=== PATIENT | female | born 1955 | race African-American/Black ===

== ENCOUNTER 2019-06-28 07:27 | Emergency (ER) | payer OTHER ==
--- NOTE | 2019-06-28 14:58 | ER ---
Nurse's Notes [facility] Name: Jennifer Cisneros Age: 63 yrs Sex: Female : 1955 Arrival Date: 06/28/2019 Time: 07:29 Bed External Waiting Private MD: Diagnosis: Acute upper respiratory infection, unspecified Presentation: 06/28 07:33 Presenting complaint: Patient states: "I started yesterday, I was just cold, then I aa5 started coughing and my throat started hurting". Pt reports dry cough and body aches. Transition of care: patient was not received from another setting of care. Onset of symptoms was June 27, 2019. Risk Assessment: Do you want to hurt yourself or someone else? Patient reports no desire to harm self or others. Initial Sepsis Screen: Does the patient meet any 2 criteria? No. Patient's initial sepsis screen is negative. Does the patient have a suspected source of infection? No. Patient's initial sepsis screen is negative. Care prior to arrival: None. 07:33 Acuity: RITESH 4 aa5 07:33 Method Of Arrival: Ambulatory aa5 Historical: - Allergies: 07:34 Tylenol-Codeine #3; aa5 - PMHx: 07:34 hiatal hernia; aa5 - PSHx: 07:34 Hysterectomy; Cholecystectomy; Appendectomy; aa5 - Immunization history:: Flu vaccine is not up to date. - Social history:: Smoking status: Patient/guardian denies using tobacco, Patient/guardian denies using alcohol, street drugs, The patient lives with family. - Ebola Screening: : No symptoms or risks identified at this time. - Family history:: not pertinent. Screenin:08 Abuse screen: Denies threats or abuse. Denies injuries from another. Nutritional ph screening: No deficits noted. Tuberculosis screening: No symptoms or risk factors identified. Fall Risk None identified. Assessment: 08:00 General: Appears in no apparent distress. comfortable, slender, well groomed, Behavior ph is calm, cooperative, appropriate for age, Reports chills for 12-24 hours. Pain: Complains of pain in head. Neuro: Level of Consciousness is awake, alert, obeys commands, Oriented to person, place, time, situation, Reports headache Denies weakness blurred vision dizziness. Cardiovascular: Capillary refill < 3 seconds in bilateral fingers Patient's skin is warm and dry. Respiratory: Airway is patent Respiratory effort is even, unlabored, Respiratory pattern is regular, symmetrical. GI: Abdomen is flat, non-distended, Reports nausea, Patient currently denies abdominal pain, diarrhea. EENT: Reports pain when swallowing. Derm: Skin is intact, is healthy with good turgor, Skin is pink, warm \\T\\ dry. Musculoskeletal: Circulation, motion, and sensation intact. Range of motion: intact in all extremities. 09:35 Reassessment: Pt discharged at 0932. hb Vital Signs: 07:34 BP 115 / 62; Pulse 109; Resp 18 S; Temp 98.5(O); Pulse Ox 96% on R/A; Weight 52.16 kg aa5 (R); Height 5 ft. 4 in. (162.56 cm) (R); Pain 9/10; 09:00 BP 112 / 70; Pulse 87; Resp 18; Temp 98.0; Pulse Ox 97% on R/A; ph 07:34 Body Mass Index 19.74 (52.16 kg, 162.56 cm) aa5 ED Course: 07:29 Patient arrived in ED. ag5 07:33 Triage completed. aa5 07:33 Arm band placed on. aa5 07:37 Gogo Coats MD is Attending Physician. ma2 07:38 Shivani Zeng, RN is Primary Nurse. ph 09:08 Patient has correct armband on for positive identification. Bed in low position. Call ph light in reach. Side rails up X 1. Pulse ox on. NIBP on. Door closed. Noise minimized. Warm blanket given. 09:30 No provider procedures requiring assistance completed. Patient did not have IV access ph during this emergency room visit. Administered Medications: No medications were administered Outcome: 09:19 Discharge ordered by . ma2 09:32 Discharged to home ambulatory, with family. ph 09:32 Condition: good 09:32 Discharge instructions given to patient, Instructed on discharge instructions, follow up and referral plans. medication usage, Demonstrated understanding of instructions, follow-up care, medications, Prescriptions given X 3. 11:22 Patient left the ED. Signatures: Marilee Vo RN RN [facility] Zeynep Brooke RN RN Shivani Zeng RN RN ph Afua Priest RN RN hb Gogo Coats MD MD ma2 Wong Romero ag5
--- NOTE | 2019-06-28 14:59 | EDPHYS ---
Physician Documentation [facility] Name: Jennifer Cisneros Age: 63 yrs Sex: Female : 1955 Arrival Date: 06/28/2019 Time: 07:29 Bed External Waiting [facility] MD: ED Physician Gogo Coats HPI: 06/28 09:16 This 63 yrs old Black Female presents to ER via Ambulatory with complaints of Nausea, ma2 Headache, Sore Throat. 09:16 Associated signs and symptoms: Pertinent positives: Pertinent negatives: belching, ma2 dysuria, flatulence, GI bleeding. Severity of symptoms: At their worst the symptoms were very mild in the emergency department the symptoms are unchanged. The patient has not experienced similar symptoms in the past. Historical: - Allergies: 07:34 Tylenol-Codeine #3; aa5 - PMHx: 07:34 hiatal hernia; aa5 - PSHx: 07:34 Hysterectomy; Cholecystectomy; Appendectomy; aa5 - Immunization history:: Flu vaccine is not up to date. - Social history:: Smoking status: Patient/guardian denies using tobacco, Patient/guardian denies using alcohol, street drugs, The patient lives with family. - Ebola Screening: : No symptoms or risks identified at this time. - Family history:: not pertinent. ROS: 09:16 All other systems are negative. ma2 09:20 Constitutional: Negative for fever, chills, and weight loss. ma2 Exam: 09:16 Constitutional: This is a well developed, well nourished patient who is awake, alert, ma2 and in no acute distress. Head/Face: Normocephalic, atraumatic. Eyes: Pupils equal round and reactive to light, extra-ocular motions intact. Lids and lashes normal. Conjunctiva and sclera are non-icteric and not injected. Cornea within normal limits. Periorbital areas with no swelling, redness, or edema. ENT: Nares patent. No nasal discharge, no septal abnormalities noted. Tympanic membranes are normal and external auditory canals are clear. Oropharynx with no redness, swelling, or masses, exudates, or evidence of obstruction, uvula midline. Mucous membranes moist. Neck: Trachea midline, no thyromegaly or masses palpated, and no cervical lymphadenopathy. Supple, full range of motion without nuchal rigidity, or vertebral point tenderness. No Meningismus. Chest/axilla: Normal chest wall appearance and motion. Nontender with no deformity. No lesions are appreciated. Cardiovascular: Regular rate and rhythm with a normal S1 and S2. No gallops, murmurs, or rubs. Normal PMI, no JVD. No pulse deficits. Respiratory: Lungs have equal breath sounds bilaterally, clear to auscultation and percussion. No rales, rhonchi or wheezes noted. No increased work of breathing, no retractions or nasal flaring. Abdomen/GI: Soft, non-tender, with normal bowel sounds. No distension or tympany. No guarding or rebound. No evidence of tenderness throughout. MS/ Extremity: Pulses equal, no cyanosis. Neurovascular intact. Full, normal range of motion. Neuro: Awake and alert, GCS 15, oriented to person, place, time, and situation. Cranial nerves II-XII grossly intact. Motor strength 5/5 in all extremities. Sensory grossly intact. Cerebellar exam normal. Normal gait. Vital Signs: 07:34 BP 115 / 62; Pulse 109; Resp 18 S; Temp 98.5(O); Pulse Ox 96% on R/A; Weight 52.16 kg aa5 (R); Height 5 ft. 4 in. (162.56 cm) (R); Pain 9/10; 09:00 BP 112 / 70; Pulse 87; Resp 18; Temp 98.0; Pulse Ox 97% on R/A; ph 07:34 Body Mass Index 19.74 (52.16 kg, 162.56 cm) aa5 MDM: 07:37 Patient medically screened. ma2 09:16 Differential diagnosis: URI, pharyngitis. Data reviewed: vital signs, nurses notes. ma2 Counseling: I had a detailed discussion with the patient and/or guardian regarding: the historical points, exam findings, and any diagnostic results supporting the discharge/admit diagnosis, the presence of at least one elevated blood pressure reading (>120/80) during this emergency department visit. Response to treatment: There is no appreciated change of the patient's symptoms at this time. 06/28 07:49 Order name: Flu ma2 06/28 07:49 Order name: Strep ma2 Administered Medications: No medications were administered Disposition: 06/28/19 09:19 Discharged to Home. Impression: Acute upper respiratory infection, unspecified. - Condition is Stable. - Discharge Instructions: Upper Respiratory Infection, Adult. - Prescriptions for Tramadol 50 mg Oral Tablet - take 1 tablet by ORAL route every 8 hours as needed; 12 tablet. Zithromax Z- Chidi 250 mg Oral Tablet - take 1 tablet by ORAL route as directed for 5 days Day 1 - take two (2) tablets one time. Day 2, 3, 4 , 5 take one (1) tablet once daily.; 6 tablet. Medrol (Chidi) 4 mg Oral Tablets, Dose Pack - take 1 tablet by ORAL route as directed - follow package instructions; 1 packet. - Medication Reconciliation Form, Thank You Letter, Antibiotic Education, Prescription Opioid Use form. - Follow up: Private Physician; When: Tomorrow; Reason: Continuance of care. Signatures: Dispatcher [employer] EDMarilee Poon RN RN aa5 Zeynep Brooke RN RN ss Gogo Coats MD MD ma2 Corrections: (The following items were deleted from the chart) 11:22 09:19 06/28/2019 09:19 Discharged to Home. Impression: Acute upper respiratory ss infection, unspecified. Condition is Stable. Prescriptions for Tramadol 50 mg Oral Tablet - take 1 tablet by ORAL route every 8 hours as needed; 12 tablet, Zithromax Z-Chidi 250 mg Oral Tablet - take 1 tablet by ORAL route as directed for 5 days Day 1 - take two (2) tablets one time. Day 2, 3, 4 , 5 take one (1) tablet once daily.; 6 tablet, Medrol (Chidi) 4 mg Oral Tablets, Dose Pack - take 1 tablet by ORAL route as directed - follow package instructions; 1 packet. and Forms are Medication Reconciliation Form, Thank You Letter, Antibiotic Education, Prescription Opioid Use. Follow up: Private Physician; When: Tomorrow; Reason: Continuance of care. ma2
[2019-06-28 15:43] VITALS: BP 115/62; TEMP 98.5; O2SAT 96
== END 2019-06-28 11:22 | disposition home or self-care (01) ==
LOC: ER 07:27
DX: J06.9 Acute upper respiratory infection, unspecified (principal); Z88.5 Allergy status to narcotic agent
CPT/HCPCS: 87081; 87804; 99283

== ENCOUNTER 2020-02-09 11:48 | Emergency (ER) | payer OTHER ==
[2020-02-09] MEDS ORDERED: ONDANSETRON 4 MG/2 ML VIAL ONE (12:52)
[2020-02-09] MEDS ORDERED: KETOROLAC 30 MG/ML INJ ONE (12:52)
[2020-02-09 12:57] LABS: Absolute Lymphocytes (CBC) 1.3 K/uL (0.7-4.9); Basophils % 0.3 % (0-1.3); Hematocrit 40.4 % (36.0-45.0); Lymphocytes % 16.7 % (15.3-44.8); MPV 8.4 fL (7.6-11.3); RBC Red Blood Cell Count 4.32 M/uL (3.86-4.86)
[2020-02-09 13:08] LABS: ALT/SGPT 21 U/L (12-78); AST/SGOT 14 U/L (15-37); Albumin 4.1 g/dL (3.4-5.0); Alkaline Phosphatase 82 U/L (45-117); BUN Blood Urea Nitrogen 8 mg/dL (7-18); Bicarbonate 25 mmol/L (21-32); Bilirubin Direct < 0.1 mg/dL (0-0.2); Bilirubin Total 0.4 mg/dL (0.2-1.0); Glucose Level 95 mg/dL (74-106); Lipase 106 U/L (73-393); Potassium 3.8 mmol/L (3.5-5.1); Protein, Total 7.8 g/dL (6.4-8.2); Sodium Level 142 mmol/L (136-145)
--- OUTSIDE RECORDS SUMMARY | 2020-02-09 13:34 | XMS REPORT | Continuity of Care Document ---
:1955 Author Organization [employer] Care Team Providers Name Role Phone [employer] Unavailable Un available Problems Problem Status Onset Classification Date Comments Sourc e Date Reported Family history of 02/17/2018 M H Medical malignant neoplasm 018 G roup of ovary Family history of 02/17/2018 M Medical malignant neoplasm 018 G roup of breast Encounter for 02/17/2018 [facility] dical gynecological 018 Group examination (general) (routine) without abnormal findings GERD Active [address] [id number] Active [address] Discharge 07/25/2015 Sugar Diagnosis: 016 Land Dizziness Discharge 07/25/2015 [place] Diagnosis: Nausea 016 [place] NAUESA/ Active Sugar 016 Land 789.06// GASTRIC Active Sugar EMPTYING STUDY 015 Land Bladder muscle Active Problem 11/16/2018 Data [facility] edical dysfunction - 015 migrated Group, MH overactive from [facility] (disorder) [facility] on 01/10/15. [facility] [place] OVERACTIVE BLADDER Active Condition 01/04/2015 Medical 015 Group Asthma (disorder) Active Problem 11/16/2018 Data [facility] Medical 015 migrated Group,MH from [facility] on 12/02/14. [facility] [place] Disorder of nasal Active Problem 07/25/2015 Data [facility] Sugar cavity (disorder) 015 migrated [place] from [facility] on 12/02/14. ASTHMA Active Condition 01/04/2015 Medica l 015 Group Epigastric pain Active Problem 07/25/2015 Data [place] (finding) 014 migrated Land from [facility] on 12/02/14. Loss of appetite Active Problem 07/25/2015 Data Sugar (finding) 014 migrated Land from [facility] on 12/02/14. ABDOMINAL PAIN, Active Condition 01/04/2015 Medical EPIGASTRIC 014 Group LOSS OF APPETITE Active Condition 01/04/2015 Medical 014 Group BRONCHITIS, ACUTE Active Condition 01/04/2015 [facility] Medical 014 Group Allergic rhinitis Active Problem 11/16/2018 Data [facility] Medical (disorder) 014 migrated Group, from [facility] on 12/02/14. [place] [place] Contusion of knee Active Problem 07/25/2015 Data [facility] Sugar (disorder) 014 migrated Land from [facility] on 12/02/14. CONTUSION OF KNEE Active Condition 01/04/2015 [facility] Medical 014 Group NEED PROPHYLACTIC Active Condition 01/04/2015 [facility] Medical VACCINATION&INOCULA 014 Group TION FLU EXAMINATION, Inactive Condition 01/04/2015 Med ical ROUTINE MEDICAL 014 Grou p Chronic Active Problem 11/16/2018 Data Medica l constipation 014 migrated Group,[facility] (disorder) from [facility] on 12/02/14. [place] [place] SCREENING FOR COLON Inactive Condition 01/04/2015 Medical CANCER 014 Group CONSTIPATION, Active Condition 01/04/2015 [facility] dical CHRONIC 014 Group SCREENING Inactive Condition 01/04/2015 Medica l EXAMINATION FOR 014 Grou p OTHER SPECIFIED VIRAL DISEASES Past history of Active Problem 07/25/2015 Data Sugar clinical finding 014 migrated Samy d (context-dependent from [facility] on 12/02/14. OTHER DISEASES OF Inactive Condition 01/04/2015 [facility] Medical NASAL CAVITY AND 014 [place] up SINUSES BACKACHE, Inactive Condition 01/04/2015 Medica l UNSPECIFIED 014 Group HX, PERSONAL, PAST Active Condition 01/04/2015 Medical NONCOMPLIANCE 014 Group Derangement of knee Active Problem 07/25/2015 Data [place] (disorder) 014 migrated Land from [facility] on 12/02/14. INTERNAL Active Condition 01/04/2015 Medica l DERANGEMENT, LEFT 014 Gr oup KNEE Benign essential Active Problem 11/16/2018 Data Medical hypertension 014 migrated Group,M H (disorder) from [facility] on 12/02/14. Center,[facility] [place] Tear of medial Resolved Problem 11/16/2018 Data M edical meniscus of knee 014 migrated [place]isha up, (disorder) from [facility] on 12/02/14. Center,[facility] [place] Long-term drug Active Problem 07/25/2015 Data S ugar therapy (procedure) 014 migrated Land from [facility] on 12/02/14. ESSENTIAL Active Condition 01/04/2015 Medica l HYPERTENSION, 014 Group BENIGN MEDIAL MENISCUS Active Condition 01/04/2015 Medical TEAR, LEFT 014 Group KNEE PAIN, LEFT Inactive Condition 01/04/2015 Medical 014 Group LONG-TERM (CURRENT) Active Condition 01/04/2015 Medical USE OF OTHER 014 Group MEDICATIONS UNSPECIFIED Inactive Condition 01/04/2015 Medi chele BACKACHE 014 Group HEALTH SCREENING Inactive Condition 01/04/2015 Medical 014 Group ALLERGIC RHINITIS Inactive Condition 01/04/2015 M H Medical CAUSE UNSPECIFIED 014 Gr oup Disorder of Active Problem 07/25/2015 Data S[place] r refraction AND/OR [address] accommodation from (disorder) [facility] on 12/02/14. Subjective visual Active Problem 07/25/2015 Data M H [place] disturbance 014 migrated Land (disorder) from [facility] on 12/02/14. OTHER DISORDERS OF Active Condition 01/04/2015 Medical REFRACTION AND 014 Group ACCOMMODATION VISUAL CHANGES Active Condition 01/04/2015 [facility] edical 014 Group Sinusitis Resolved Problem 07/25/2015 Data migrated from [facility] on 01/20/15. Sugar (disorder) 014 Data migrated from [facility] on 01/19/15. [place] SINUSITIS Inactive Condition 01/04/2015 Medica l 014 Group Joint pain Active Problem 07/25/2015 Data Sugar (finding) 013 migrated Land from [facility] on 12/02/14. Muscle pain Active Problem 07/25/2015 Data S[place] r (finding) 013 migrated Land from [facility] on 12/02/14. MYALGIA Active Condition 01/04/2015 Medica l 013 Group ARTHRALGIA Active Condition 01/04/2015 Medic al 013 Group Palpitations Active Problem 11/16/2018 Data Med ical (finding) 013 migrated Group, from [facility] on 12/02/14. Center,M [facility] [place] PALPITATIONS, Active Condition 01/04/2015 [facility] dical OCCASIONAL 013 Group Fibromyositis Active Problem 11/16/2018 Data [facility] dical (disorder) 013 migrated Group, from [facility] on 12/02/14. Center,M [facility] [place] FIBROMYALGIA Active Condition 01/04/2015 Med ical 013 Group HEADACHE Inactive Condition 01/04/2015 Medica l 013 Group SINUSITIS, FRONTAL Inactive Condition 01/04/2015 Medical 013 Group Menopausal syndrome Active Problem 07/25/2015 Data Sugar (disorder) 013 migrated Land from [facility] on 12/02/14. ROUTINE Inactive Condition 01/04/2015 Medica l GYNECOLOGICAL 013 Group EXAMINATION MENOPAUSAL SYNDROME Active Condition 01/04/2015 Medical 013 Group CYSTOCELE WITHOUT Inactive Condition 01/04/2015 M H Medical MENTION UTERINE 013 Grou p PROLAPSE MIDLN Hyperlipidemia Active Problem 07/24/2017 [place] [facility] Hiatal hernia Active Problem 07/24/2017 [place] [facility] Essential (primary) Active Problem 07/24/2017 [facility] hypertension Practic e Assoc IBS (irritable Active Diagnosis 01/19/2016 [place] F am bowel syndrome) Prac fran [facility]oc Leg pain Active Diagnosis 01/19/2016 [place] [facility] Preventative health Active Diagnosis 02/06/2016 [place] [facility] Anxiety disorder Active Problem 11/16/2018 Data Medical (disorder) migrated Group, from [facility] on 12/02/14. 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 [place] [place] Family history of Active Problem 11/16/2018 [facility] Medical malignant neoplasm G roup of breast (situation) Family history of Active Problem 11/16/2018 [facility] Medical malignant neoplasm G roup of ovary (situation) Gastroesophageal Active Problem 11/16/2018 Data Medical reflux disease migrated Group , (disorder) from [facility] on 01/19/15. [place] Hyperlipidemia Active Problem 11/16/2018 Data [facility] edical (disorder) migrated Group, from [facility] on 12/02/14. [facility] [place] Myopia (disorder) Active Problem 11/16/2018 [facility] Medical Group Tear film Active Problem 11/16/2018 Medica l insufficiency Group (disorder) Colonoscopy Resolved Problem 07/25/2015 Data S[place] r (procedure) migrated Land from [facility] on 01/19/15. Hypertensive Active Problem 08/08/2016 Michael as disorder, systemic edical arterial (disorder) [facility] [place] FAMILY HISTORY OF Inactive Condition 01/04/2015 [facility] Medical ARTHRITIS Group FAMILY HISTORY OF Inactive Condition 01/04/2015 [facility] Medical ASTHMA Group FAMILY HISTORY Active Condition 01/04/2015 [facility] edical BREAST CANCER Group FAMILY HISTORY OF Active Condition 01/04/2015 [facility] Medical DEPRESSION Group FAMILY HISTORY OF Active Condition 01/04/2015 [facility] Medical CVA OR STROKE Group FAMILY HISTORY OF Active Condition 01/04/2015 [facility] Medical HYPERTENSION Group FAMILY HISTORY OF Active Condition 01/04/2015 [facility] Medical THYROID DISEASE Grou p HYPERLIPIDEMIA Active Condition 01/04/2015 [facility] edical Group DEPRESSION Active Condition 01/04/2015 Medic al Group ANXIETY Active Condition 01/04/2015 Medica l Group HYPERTENSION Inactive Condition 01/04/2015 Med ical Group ABDMNAL PAIN Active [place] EPIGASTRIC Land ILLNESS, Active [facility] Medications Medication Details Route Status Patient Ordering Order Source Instructions Provider Date Estradiol 1 MG See Active Oral Tablet Instructions, 2018 Medica l # 90 tab, Group Refill(s) 1, TAKE 1 TABLET BY MOUTH EVERY DAY, [id number] Estradiol 1 MG See Inactive Oral Tablet Instructions, 2018 Medica l # 90 tab, Group Refill(s) 1, TAKE 1 TABLET BY MOUTH EVERY DAY, [id number] Estradiol 1 MG See Active Oral Tablet Instructions, 2018 Medica l # 90 tab, Group Refill(s) 1, TAKE 1 TABLET BY MOUTH EVERY DAY, [id number] Zofran 2 tablets Orally Active 4 mg Orally [place] F[place] Once a day 2018 [facility] Zithromax Z-Chidi 2 tablets on Orally Active 250 MG Orally [place] 10/05 [place] Fam the first Once a day 2017 Practice day, then 1 Assoc tablet daily for 4 days Cipro 1 tablet Orally Active 500 MG Orally [place] [facility] Twice a day 2017 [facility] Symbicort 2 puffs Inhalation Active 80-4.5 [place] [facility] MCG/ACT 2017 Practice Inhalation Assoc Twice a day influenza virus Notes: (Same Inactive [place] vaccine, as: Fluzone 2017 [facility] inactivated Quadrivalent, [place] Fluarix Quadrivalent) For 3 years of age and older (0.5 mL IM) Shake well before use tramadol 50 mg = 1 Active [place] hydrochloride 50 tab, PO, Q4H, 2017 edical MG Oral Tablet X 3 day, # [address] tab, 0 Refill(s) Ondansetron 4 MG 4 mg = 1 tab, Active [place] Disintegrating PO, BID, PRN 2017 Medi chele Tablet [Zofran] Nausea and Cente r Vomiting, Dissolve tab under tongue, X 5 day, # 10 tab, 0 Refill(s) Tylenol with 10 ml, PO, Active [place] Codeine 120 Q6H, PRN 2017 Medical mg-12 mg/5 mL Pain, X 7 Center oral liquid day, # 280 mL, 0 Refill(s) metoprolol Notes: (Same [place] extended release as: Toprol 2017 Medi chele XL) Do Not Center Crush Ondansetron 4 MG 4 mg = 1 tab, Inactive [place] Disintegrating PO, BID, PRN 2017 Medi chele Tablet [Zofran] Nausea and Cente r Vomiting, Dissolve tab under tongue, X 5 day, # 10 tab, 0 Refill(s) Tylenol with 10 ml, PO, Inactive [place] Codeine 120 Q6H, PRN 2017 Medical mg-12 mg/5 mL Pain, X 7 Center oral liquid day, # 280 mL, 0 Refill(s) tramadol 50 mg = 1 Inactive [place] hydrochloride 50 tab, PO, Q4H, 2017 M edical MG Oral Tablet X 3 day, # [address] tab, 0 Refill(s) Enoxaparin Notes: (Same [place] as: Lovenox) 2017 Medical Center Ondansetron Notes: (Same [place] Longer [place] as: Zofran) Active 2017 Medical Center MEDICATION WASTE Product Size: 4 mg Product Wasted: ___ mg Ketorolac 4 days No Longer [place] as MEDICATION Active 2017 Medical WASTE Center Product Size: 30 mg Product Wasted: ___ mg Ofirmev Notes: Infuse No Longer [place] over 15 Active 2017 Medical minutes Do Center not exceed 4gm/day of acetaminophen MEDICATION WASTE Product Size: 1000 mg Product Wasted: ___ mg Symbicort Notes: (Same No Longer [place] 160/4.5 as: Active 2017 Medical inhalation Symbicort) Center aerosol with WASTE: adapter Aerosol - Return to Pharmacy gabapentin Notes: (Same No Longer [place] as as: Active 2017 Medical Neurontin) Center Ondansetron Notes: (Same Inactive [place] as as: Zofran) 2017 Medical Center MEDICATION WASTE Product Size: 4 mg Product Wasted: ___ mg Naloxone Notes: Same Inactive [place] as Narcan 2017 Medical Center Flumazenil Notes: (Same [place] as: 2017 Medical Romazicon) Center Hydromorphone Notes: Same [place]active [place] Dilaudid 2017 Medical Center Metoprolol Notes: (Same [place]active [place] as: 2017 Medical Lopressor) Center Push over 2 minutes Tramadol Notes: Not to No Longer [place] exceed Active 2017 Medical 400mg/day. 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, Duration: 30 day, Stop date: 09/03/16 14:38:00 [employer]OVER [employer]ER [employer]PERATOR Cefazolin 2 gm, Route: Inactive [facility] IVPB, Drug 2017 Medical form: INJ, Center ONCE, Dosing Weight 57.273, kg, Start date: 08/04/16 12:21:00 [employer]OVER AND STRIPER OPERATOR, Stop date: 08/04/16 12:21:00 [employer]OVER AND STRIPER OPERATOR 72 HR 1.5 mg, 1 Inactive [facility] Scopolamine patch, Route: 2016 Medica l 0.0139 MG/HR TOP, Dosing Center Transdermal Weight Patch 57.273, kg, ONCE, Start date: 08/04/16 7:39:00 GR[employer]OVER AND STRIPER OPERATOR, Stop date: 08/04/16 7:39:00 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 STRIPER 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 ceFAZolin Notes: (Same No Longer [place] As: Ancef, Active 2017 Medical Kefzol) Center MEDICATION WASTE Product Size: 1000 mg Product Wasted: ___ mg Promethazine 25 mg = 1 Active [place] Hydrochloride 25 tab, PO, Q6H, 2016 L and MG Oral Tablet PRN Nausea, # [Phenergan] 15 tab, 0 Refill(s), Pharmacy: [facility]/pharmacy #[id number] Ketorolac 15 mg, Route: Inactive [place] IV, ONCE, 2016 Land Dosing Weight 55.591, kg, Priority: STAT, Start date: 07/22/15 14:58:00, Stop date: 07/22/15 14:58:00 Promethazine 12.5 mg, Inactive [place] Route: IM, 2016 Land ONCE, Dosing Weight 55.591, kg, Priority: STAT, Start date: 07/22/15 14:58:00, Stop date: 07/22/15 14:58:00 Sodium Chloride 500 mL, 500 Inactive [place] 0.154 MEQ/ML ml/hr, Infuse 2016 Land Injectable Over: 1 Hour, Solution Route: IV, ONCE, Priority: STAT, Dosing Weight 55.591 kg, Start date: 07/22/15 14:58:00, Duration: 1 doses or times, Stop date: 07/22/15 14:58:00 SYMBICORT 2 puffs bid Active 160-4.5 MCG/ACT 2014 Medical AERO Group METHOCARBAMOL 2 PO TID PRN Active 750 MG TABS MUSCLE SPASMS 2014 Medica l Group LEVOCETIRIZINE 1 po qhs prn No Longer DIHYDROCHLORIDE Active 2014 Medical 5 MG TABS Group ADVAIR DISKUS 1 puff twice No Longer 250-50 MCG/DOSE daily Active 2014 Medical AEPB Group DIFLUCAN 200 MG 1 po qd No Longer TABS Active 2014 Medical Group LEVAQUIN 750 MG 1 po qd No Longer TABS Active 2014 Medical Group PREDNISONE 10 MG 40 mg po No Longer TABS x4days, 30 mg Active 2014 Medical gar3buka, 20 Group mg po x4days, 10 mg [id number] then d/c PREDNISONE 10 MG 40 mg po No Longer TABS x4days, 30 mg Active 2014 Medical inn2nwjd, 20 Group mg po x4days, 10 mg [id number] then d/c ESTRADIOL 2 MG 1 tablet No Longer TABS daily Active 2014 Medical Group CEFUROXIME 1 po bid No Longer AXETIL 500 MG Active 2013 Medical TABS Group CHERATUSSIN AC 1-2 tsp q No Longer 100-10 MG/5ML 6hrs prn Active 2013 Medical SYRP cough Group PROAIR HFA 108 2 puffs q No Longer (90 BASE) 6hrs prn Active 2013 Medical MCG/ACT AERS Group CELEXA 40 MG 1 tab po qhs Active TABS 2013 Medical Group CELEXA 40 MG 1 tab po qhs Active TABS 2013 Medical Group SIMVASTATIN 40 Active MG TABS 2013 Medical Group AMITIZA 24 MCG one capsule No Longer CAPS p.o. b.i.d. Active 2013 Medical with food Group SIMVASTATIN 40 Active MG TABS 2013 Medical Group SIMVASTATIN 40 Active MG TABS 2013 Medical Group SMZ-TMP DS 1 PO BID for No Longer 800-160 MG TABS 3 days. Active 2013 Medical Group MOBIC 15 MG TABS one tablet No Longer p.o. daily Active 2013 Medical with food Group p.r.n. pain or swelling MOBIC 15 MG TABS one tablet Active p.o. daily 2013 Medical with food Group p.r.n. pain or swelling METHOCARBAMOL 2 tablets by Active 750 MG TABS mouth tid prn 2013 Medica l spasms Group METHOCARBAMOL 2 tablets by Active 750 MG TABS mouth tid prn 2013 Medica l spasms Group METHOCARBAMOL 2 tablets by No Longer 750 MG TABS mouth tid prn Active 2013 Medica l spasms Group METHOCARBAMOL 2 tablets by No Longer 750 MG TABS mouth tid prn Active 2013 Medica l spasms Group AMOXICILLIN 500 2 po bid x 10 No Longer MG CAP d with food Active 2013 Medical Group AMOXICILLIN 500 2 po bid x 10 No Longer MG CAP d with food Active 2013 Medical Group AMOXICILLIN 500 2 po bid x 10 No Longer MG CAP d with food Active 2013 Medical Group AMOXICILLIN 500 2 po bid x 10 No Longer MG CAP d with food Active 2013 Medical Group CRESTOR 5 MG 1 PO qPM No Longer TABS Active 2012 Medical Group CRESTOR 5 MG 1 PO qPM No Longer TABS Active 2012 Medical Group AMITRIPTYLINE one tab po Active 07/19/ MH HCL 100 MG TABS qhs 2012 Medical Group DEXILANT 60 MG 1 PO Daily No Longer 01/21/ MH CPDR Active 2012 Medical Group METOPROLOL one tab po Active 01/21/ MH SUCCINATE ER 25 q24h 2012 Medical MG [id number] Group NAPROXEN 500 MG take 1 tab No Longer 01/21/ MH TABS q/12h prn Active 2012 Medical RAMÍREZ/pain Group AMITRIPTYLINE one tab po Active 01/21/ MH HCL 100 MG TABS qhs 2012 Medical Group METOPROLOL one tab po Active 01/21/ MH SUCCINATE ER 25 q24h 2012 Medical MG [id number] Group NAPROXEN 500 MG take 1 tab No Longer 01/21/ MH TABS q/12h prn Active 2012 Medical RAMÍREZ/pain Group AMITRIPTYLINE one tab po Active 01/21/ MH HCL 100 MG TABS qhs 2012 Medical Group METOPROLOL one tab po Active 01/21/ MH SUCCINATE ER 25 q24h 2012 Medical MG [id number] Group NAPROXEN 500 MG take 1 tab No Longer 01/21/ MH TABS q/12h prn Active 2012 Medical RAMÍREZ/pain Group AMITRIPTYLINE 1 tab po qd No Longer 01/21/ MH HCL 50 MG TABS for 10 days Active 2012 Medic al Group AMITRIPTYLINE one tab po Active 01/21/ MH HCL 100 MG TABS qhs 2012 Medical Group NAPROXEN 500 MG take 1 tab No Longer 01/21/ MH TABS q/12h prn Active 2012 Medical RAMÍREZ/pain Group AMITRIPTYLINE 1 tab po qd No Longer 01/21/ MH HCL 50 MG TABS for 10 days Active 2012 Medic al Group NAPROXEN 500 MG take 1 tab No Longer 01/21/ MH TABS q/12h prn Active 2012 Medical RAMÍREZ/pain Group AMITRIPTYLINE 1 tab po qd No Longer 01/21/ MH HCL 50 MG TABS for 10 days Active 2012 Medic al Group METOPROLOL one tab po Active 01/21/ MH SUCCINATE ER 25 q24h 2012 Medical MG [id number] Group HYDROCODONE-ACET No Longer MH AMINOPHEN 5-500 Active 2012 Medical MG TABS Group ESTRADIOL 1 MG 1 tab PO q Active 01/04/ MH TABS day 2012 Medical Group HYDROCODONE-ACET Active 01/04/ MH AMINOPHEN 5-500 2012 Medical MG TABS Group ESTRADIOL 0.5 MG 1 TAB BY No Longer TABS MOUTH DAILY Active 2012 Medical Group ESTRADIOL 0.5 MG 1 TAB BY No Longer TABS MOUTH DAILY Active 2012 Medical Group ESTRADIOL 0.5 MG 1 TAB BY No Longer TABS MOUTH DAILY Active 2012 Medical Group Simvastatin 1 tablet in Orally Active 40 mg Orally [place] [facility] the evening Once a day [facility] Linzess 1 capsule Orally Active 145 MCG [place] [facility] Orally Once a Practice day Assoc Simvastatin 1 tablet in Orally Active 40 MG Orally [place] [facility] the evening Once a day [facility] Metoprolol 1 tablet Orally Active 25 MG Orally [place] [facility] Succinate ER Once a day [facility] Promethazine HCl 1 tablet as Orally Active 25 MG Orally [place] [facility] needed every 12 hrs [facility] Esomeprazole 1 capsule Orally Active 20 MG Orally [place] am Magnesium Once a day [facility] Estradiol 1 tablet Orally Active 1 MG Orally [place] [facility] Once a day [facility] Linzess Unknown NA Active [place] [facility] Tylenol/codeine one tablet orally Active 300-30 mg [place] [facility] #3 #30 orally every Practice 4 hours prn Assoc pain Linzess 1 capsule Orally Active 145 MCG [place] [facility] Orally Once a Practice day Assoc Allergies, Adverse Reactions, Alerts Substance Category Reaction Severity Reaction Status Date Comments S ource type Reported N.K.D.A. Adverse Info Not Adverse Active [place] F am Reaction Available Reaction 6 Prac fran Assoc No Known Assertion Drug Medication allergy Medic al Allergies Group Immunizations Immunization Date Site Status Last Updated Comments Sour ce Given influenza virus Right completed [facility] vaccine, 7 deltoid Group, inactivated [facility] diphtheria/pertu Right completed [facility] ssis, 6 Deltoid Group, acel/tetanus [facility] [place] influenza completed Medical immunization 4 Group (Flu Vax) has been administered Hx influenza Left completed [facility] Result Comment: M H Medical vaccine-unspecif 4 Deltoid fluzone [place]isha up ied<sup>2</sup> (quadrivalent) no preservative (>3 yrs.) [[id number]]. Migrated from OBS ; Data migrated from [facility] on 08/07/2015. Hx influenza Left completed GE Result Comment: Padmin[place] vaccine-unspecif 4 Deltoid fluzone Med ical ied<sup>1</sup> (quadrivalent) Center no preservative (>3 yrs.) [[id number]]. Migrated from OBS ; Data migrated from [facility] on 08/07/2015. influenza completed Medical immunization 3 Group (Flu Vax) has been administered influenza virus Left completed GE Result Comment : [facility] vaccine, 3 Deltoid fluzone (>3 Group inactivated<sup> yrs.) [[id number] ]. 1</sup> Migrated from OBS ; Data migrated from [facility] on 08/07/2015. influenza virus Left completed GE Result Comment : [place] vaccine, 3 Deltoid fluzone (>3 Medical inactivated<sup> yrs.) [[id number] ]. Center 2</sup> Migrated from OBS ; Data migrated from [facility] [place] on 08/07/2015. influenza completed Medical immunization 9 Group (Flu Vax) has been administered Results Order Name Results Value Reference Date Interpretation Comments Swapna rce Range ELECTROLYTE AGAP 8.7 10.0 - 08/05 [facility] 20.0 2017 Medical Center ELECTROLYTE eGFR 113 08/05 Result [facility] Comment: The Medical eGFR is Center calculated using the CKD-EPI formula. In most young, healthy individuals the eGFR will be >90 mL/min/1.73m2 . The eGFR declines with age. An eGFR of 60-89 may be normal in some populations, particularly the elderly, for whom the CKD-EPI formula has not been extensively validated. Use of the eGFR is not recommended in the following populations:< br/>
Sarah viduals with unstable creatinine concentration s, including patients and those with serious co-morbid conditions.<b r/>
Patie nts with extremes in muscle mass or diet.

The data above are obtained from the National Kidney Disease Education Program (NKDEP) which additionally recommends that when the eGFR is used in patients with extremes of body mass index for purposes of drug dosing, the eGFR should be multiplied by the estimated BMI. ELECTROLYTE Chloride Lvl 106 95 - 109 08/05 [place] [facility] ELECTROLYTE Potassium Lvl 3.7 3.5 - 5.1 08/05 [place] [facility] ELECTROLYTE CO2 29 24 - 32 08/05 [facility] 2016 [facility] ELECTROLYTE Calcium Lvl 8.5 8.5 - 10.5 08/05 [place] [facility] ELECTROLYTE Sodium Lvl 140 135 - 145 08/05 a [facility] ELECTROLYTE BUN 5 7 - 22 08/05 [facility] ELECTROLYTE Creatinine 0.59 0.50 - 08/05 [facility] S Lvl 1.40 [facility] ELECTROLYTE Glucose Lvl 88 70 - 99 08/05 [facility] HEMATOLOGY MCV 92.5 80.0 - 08/05 [place] 98.0 [facility] HEMATOLOGY RDW 12.9 11.5 - 08/05 [place] 14.5 [facility] HEMATOLOGY MPV 8.4 7.4 - 10.4 08/05 [facility] HEMATOLOGY Platelet 184 133 - 450 08/05 [facility] HEMATOLOGY WBC 10.5 3.7 - 10.4 08/05 2016 [facility] HEMATOLOGY Hgb 11.9 12.0 - 08/05 [place] 16.0 [facility] HEMATOLOGY Hct 35.2 36.0 - 08/05 [place] 48.0 [facility] HEMATOLOGY MCHC 33.7 32.0 - 08/05 [place] 36.0 [facility] HEMATOLOGY MCH 31.2 27.0 - 08/05 [place] 31.0 [facility] HEMATOLOGY RBC 3.81 4.20 - 08/05 [place] 5.40 [facility] HEMATOLOGY Segs 71.6 45.0 - 08/05 [place] 75.0 [facility] HEMATOLOGY Lymphocytes # 2.2 1.0 - 5.5 08/05 [facility] HEMATOLOGY Segs-Bands # 7.5 1.5 - 8.1 08/05 [facility] HEMATOLOGY Basophils 0.2 0.0 - 1.0 08/05 [facility] HEMATOLOGY Eosinophils 0.1 0.0 - 4.0 08/05 [facility] HEMATOLOGY Monocytes # 0.7 0.0 - 0.8 08/05 [facility] HEMATOLOGY Monocytes 7.1 2.0 - 12.0 08/05 [facility] HEMATOLOGY Lymphocytes 21.0 20.0 - 08/05 40.0 [facility] CHEM PANEL Creatinine 0.69 0.50 - 07/31 [facility] Lvl 1.40 [facility] CHEM PANEL eGFR 108 07/31 Result Comment: The Medical eGFR is Center calculated using the CKD-EPI formula. In most young, healthy individuals the eGFR will be >90 mL/min/1.73m2 . The eGFR declines with age. An eGFR of 60-89 may be normal in some populations, particularly the elderly, for whom the CKD-EPI formula has not been extensively validated. Use of the eGFR is not recommended in the following populations:< br/>
Sarah viduals with unstable creatinine concentration s, including patients and those with serious co-morbid conditions.<b r/>
Patie nts with extremes in muscle mass or diet.

The data above are obtained from the National Kidney Disease Education Program (NKDEP) which additionally recommends that when the eGFR is used in patients with extremes of body mass index for purposes of drug dosing, the eGFR should be multiplied by the estimated BMI. CHEM PANEL Calcium Lvl 8.8 8.5 - 10.5 07/31 [facility] CHEM PANEL CO2 30 24 - 32 07/31 [facility] CHEM PANEL Potassium Lvl 4.3 3.5 - 5.1 07/31 [place] [facility] CHEM PANEL Sodium Lvl 143 135 - 145 07/31 [facility] CHEM PANEL Chloride Lvl 106 95 - 109 07/31 [facility] CHEM PANEL AGAP 11.3 10.0 - 07/31 20. [facility] CHEM PANEL Glucose Lvl 79 70 - 99 07/31 [facility] CHEM PANEL BUN 6 7 - 22 07/31 [facility] HEMATOLOGY Angle 68.2 53.0 - 07/31 [place] 72.0 [facility] HEMATOLOGY Max Amp 65.8 50.0 - 07/31 70.0 [facility] HEMATOLOGY K-time 1.4 1.0 - 3.0 07/31 [facility] HEMATOLOGY Ly30 0.5 0.0 - 7.5 07/31 [facility]2016 [facility] HEMATOLOGY G-value 9.6 4.5 - 11.0 07/31 [facility]2016 [facility] HEMATOLOGY TEG Data See Note 07/31 [facility] (07/31/16 1:45 PM) [facility] HEMATOLOGY R-time 5.6 5.0 - 10.0 07/31 [facility]2016 [facility] HEMATOLOGY Coag Index 1.3 -3.0-3.0 - 07[place] 3[place] [facility] HEMATOLOGY TEG Interp [place]rom[place] 07/[place] [facility] are within reference ranges. These indicate adequate hemostasis . Note that TEG does not show effect of NSAIDs or P2Y12 inhibitors . CPT:43373 CARDIAC Troponin-I <0.02 0.00 - 07/22 [place] CHEM PANEL Lipase Lvl 145 73 - 393 07/22 [place] CHEM PANEL Globulin 3.7 2.0 - 4.0 07/22 [place] CHEM PANEL A/G Ratio 1.1 0.7 - 1.6 07/22 [place] CHEM PANEL AGAP 7.4 10.0 - 07/22 [place] CHEM PANEL B/C Ratio 9 6 - 25 07/22 [place] CHEM PANEL eGFR 91 07/22 [facility] Comment: The [facility] eGFR is calculated using the CKD-EPI formula. In most young, healthy individuals the eGFR will be >90 mL/min/1.73m2 . The eGFR declines with age. An eGFR of 60-89 may be normal in some populations, particularly the elderly, for whom the CKD-EPI formula has not been extensively validated. Use of the eGFR is not recommended in the following populations:< br/>
Sarah viduals with unstable creatinine concentration s, including patients and those with serious co-morbid conditions.<b r/>
Patie nts with extremes in muscle mass or diet.

The data above are obtained from the National Kidney Disease Education Program (NKDEP) which additionally recommends that when the eGFR is used in patients with extremes of body mass index for purposes of drug dosing, the eGFR should be multiplied by the estimated BMI. CHEM PANEL Alk Phos 71 39 - 136 07/22 [place] CHEM PANEL AST 20 0 - 37 07/22 [place] CHEM PANEL Bili Total 0.3 0.2 - 1.3 07/22 [place] CHEM PANEL Calcium Lvl 8.7 8.5 - 10.5 07/22 [place] CHEM PANEL CO2 31 24 - 32 07/22 [place] CHEM PANEL Albumin Lvl 3.9 3.5 - 5.0 07/22 [place] CHEM PANEL Total Protein 7.6 6.4 - 8.4 07/22 [place] CHEM PANEL ALT 28 0 - 65 07/22 [place] CHEM PANEL Chloride Lvl 102 95 - 109 07/22 [place] CHEM PANEL Potassium Lvl 3.4 3.5 - 5.1 07/22 [place] CHEM PANEL Sodium Lvl 137 135 - 145 07/22 [place] CHEM PANEL BUN 7 7 - 22 07/22 [place] CHEM PANEL Glucose Lvl 86 70 - 99 07/22 [place] CHEM PANEL Creatinine 0.80 0.50 - 07/22 [place] L[place] 1.40 [place] HEMATOLOGY Platelet 269 133 - 450 07/22 [place] HEMATOLOGY MCHC 33.2 32.0 - 07/22 [place] 36[place]0 /2015 [place] HEMATOLOGY RDW 12.9 11.5 - 07/22 [place] 14[place] HEMATOLOGY WBC 9.2 3.7 - 10.4 07/22 [place] HEMATOLOGY Hct 43.5 36.0 - 07/22 [place] 48[place]0 /2016 [place] HEMATOLOGY RBC 4.59 4.20 - 07/22 [place] 5.40 /2015 [place] HEMATOLOGY Hgb 14.4 12.0 - 07/22 [place] 16[place] HEMATOLOGY MPV 7.8 7.4 - 10.4 07/22 [place] HEMATOLOGY MCV 94.7 80.0 - 07/22 [place] 98[place]0 /2015 [place] HEMATOLOGY MCH 31.5 27.0 - 07/22 [place] 31.0 /2016 [place] HEMATOLOGY Segs-Bands # 6.4 1.5 - 8.1 07/22 [place] HEMATOLOGY Monocytes # 0.5 0.0 - 0.8 07/22 [place] HEMATOLOGY Lymphocytes # 2.3 1.0 - 5.5 07/22 [place] /2015 [place] HEMATOLOGY Monocytes 5.8 2.0 - 12.0 07/22 [place] HEMATOLOGY Eosinophils 0.1 0.0 - 4.0 07/22 [place] HEMATOLOGY Basophils 0.2 0.0 - 1.0 07/22 [place] HEMATOLOGY Eosinophils # 0.0 0.0 - 0.5 07/22 [place] HEMATOLOGY Basophils # 0.0 0.0 - 0.2 07/22 [place] HEMATOLOGY Lymphocytes 24.6 20.0 - 07/22 [place] 40[place] HEMATOLOGY Segs 69.3 45.0 - 07/22 [place] 75[place]0 [place] URINE AND UA WBC None Seen None Seen 07/22 [place] [facility] (07/22/15 3:29 PM) /2015 [place] URINE AND UA Sq Epi Few /LPF Few /LPF 07/22 [place] /2015 [place] URINE AND UA Bacteria Occasional None Seen 07/22 [place] [facility] /HPF /HPF /2015 [place] URINE AND UA RBC None Seen 0 - 2 07/22 [place] (07/22/15 3:29 PM) /2015 [place] URINE AND UA Mucus None Seen None Seen 07/22 [place] [facility] (07/22/15 3:29 PM) /2015 [place] URINE AND UA Leuk Est Negative Negative 07/22 [place] [facility] (07/22/15 3:29 PM) /2015 [place] URINE AND UA Blood Moderate Negative 07/22 [place] *ABN* /2015 [place] (07/22/15 3:29 PM) URINE AND UA Bili Negative Negative 07/22 [place] *NA* /2015 [place] (07/22/15 3:29 PM) URINE AND UA Nitrite Negative Negative 07/22 [place] [facility] (07/22/15 3:29 PM) /2015 [place] URINE AND UA 0.2 0.1 - 1.0 07/22 [place] Urobilinogen /2015 [place] URINE AND UA Ketones 15 mg/dL Negative 07/22 [place] mg/dL /2015 [place] URINE AND UA Glucose Negative Negative 07/22 [place] [facility] (07/22/15 3:29 PM) /2015 [place] URINE AND UA Spec Grav 1.015 <=1.030 07/22 [place] /2015 [place] URINE AND UA Protein Negative Negative 07/22 [place] [facility] (07/22/15 3:29 PM) /2015 [place] URINE AND UA pH 5.5 5.0 - 8.0 07/22 [place] /2015 [place] URINE AND UA Turbidity Clear Clear 07/22 [place] [facility] (07/22/15 3:29 PM) /2015 [place] URINE AND UA Color Yellow Yellow 07/22 [place] *NA* /2015 [place] (07/22/15 3:29 PM) Chemistry SODIUM 140 136 - 142 01/04 [facility] Chemistry POTASSIUM 4.8 3.3 - 5.0 01/04 [facility] Chemistry ALBUMIN 4.1 3.5 - 5.0 01/04 [facility] Chemistry CALCIUM 8.9 8.8 - 10.0 01/04 [facility] Chemistry CREATININE 0.77 0.46 - 07 1. [facility] Chemistry BUN 10 8 - 20 01/04 [facility] Chemistry ALK PHOS 60 26 - 102 01/04 [facility] Chemistry SGOT (AST) 19 10 - 42 01/04 [facility] Chemistry SGPT (ALT) 14 11 - 43 01/04 [facility] Chemistry CHOLESTEROL 234 120 - 200 01/04 [facility] HDL 60 31 - 79 01/04 [facility] Chemistry LDL 151 0 - 130 07 /2014 [facility] Chemistry TSH 1.27 0.34 - 07 5.60 [facility] Hematology HGB 13.1 12.0 - 07 15.0 [facility] Hematology HCT 39.9 35.0 - 01/04 43.8 /2014 [facility] Chemistry CREATININE 0.96 0.46 - 05 1. [facility] Chemistry CREATININE 0.96 0.46 - 05 1. [facility] Chemistry SODIUM 133 136 - 142 05/15 [facility] Chemistry POTASSIUM 3.8 3.3 - 5.0 05/15 [facility] Chemistry SODIUM 133 136 - 142 05/15 [facility] Chemistry POTASSIUM 3.8 3.3 - 5.0 05/15 [facility] Chemistry BUN 7 8 - 20 05/15 [facility] Chemistry CREATININE 0.82 0.46 - 05/15 1. [facility] Chemistry CALCIUM 8.8 8.8 - 10.0 05/15 [facility] Chemistry CHOLESTEROL 203 120 - 200 05/15 [facility] Chemistry HDL 44 31 - 79 05/15 [facility] Chemistry LDL 133 0 - 130 05/15 [facility] Chemistry ALBUMIN 4.1 3.5 - 5.0 05/15 [facility] Chemistry ALK PHOS 74 26 - 102 05/15 [facility] Chemistry SGOT (AST) 20 - 05/15 [facility] Chemistry SGPT (ALT) 19 - 05/15 [facility] Chemistry CPK 79 41 - 145 05/15 [facility] Chemistry TSH 1.47 0.34 - 05/15 5. [facility] Chemistry SODIUM 138 136 - 142 05/15 [facility] Chemistry POTASSIUM 3.8 3.3 - 5.0 05/15 [facility] Chemistry BUN 7 8 - 20 05/15 [facility] Chemistry CREATININE 0.82 0.46 - 05/15 1. [facility] Chemistry CALCIUM 8.8 8.8 - 10.0 05/15 [facility] Chemistry CHOLESTEROL 203 120 - 200 05/15 [facility] Chemistry HDL 44 31 - 79 05/15 [facility] Chemistry LDL 133 0 - 130 05/15 [facility] Chemistry ALBUMIN 4.1 3.5 - 5.0 05/15 [facility] Chemistry ALK PHOS 74 26 - 102 05/15 [facility] Chemistry SGOT (AST) 20 10 - 42 05/15 [facility] Chemistry SGPT (ALT) 19 - 05/15 [facility] Chemistry CPK 79 41 - 145 05/15 [facility] Chemistry TSH 1.47 0.34 - 05/15 5. [facility] Hematology HGB 13.8 12.0 - 05/15 15. [facility] Hematology HCT 41.1 35.0 - 05/15 43.8 /2014 [facility] Hematology HGB 13.8 12.0 - 11 15.0 /2014 [facility] Hematology HCT 41.1 35.0 - 11/10 43.8 /2014 [facility] Society Editor PAP SMEAR normal 04/25 [facility] Society Editor PAP SMEAR normal 04/25 [facility] Society Editor PAP SMEAR normal 04/25 [facility] Society Editor PAP SMEAR normal 04/25 [facility] Pathology Reports No Data Provided for This Section Diagnostic Reports Report Value Date Source Breast Mammo Scrn PRITESH 10/15/2017 [facility] incl CAD MA BILATERAL DIGITAL SCREENING MAMMOGRAM WITH CAD: 10/15/2017 CLINICAL: Screening/Screening. Current study was evaluated with a Inner Tube Cutter d Detection (CAD) system. COMPARISON:Comparison is mad e to exams dated: 10/07/2016 mammogram, 08/02/2015 mammogram, 04/25/2014 mammogram, and 01/04/2013 mammogram - [facility]. TECHNIQUE: Mammographic view s were obtained using digital acquisition. Current study was also evaluated with a Computer Aided Detection (CAD) system. FINDINGS: The tissue of both breasts is almost entirely fa t. There are benign calcifications in both breasts. No significant masses, calci fications, or other findings are seen in either breast. There has been no significant interval change. IMPRESSION: BENIGN RECOMMENDATION:There is no m ammographic evidence of malignancy. A 1 year screening mammogram is recommended.(10/16/2018) This exam was interpreted at [id number] for [facility]. Juliana van/penanthony:10/15/2017 13:33:05 Company Accountant(s): Lesly Meadows, [facility] letter sent: BI-RADS 1/2 Mammogram BI-RADS: 2 Benign Pelvis Transvaginal US EXAM: US PELVIS TRANSVAGINAL 10/24/2016 [facility] DATE: 10/24/2016 9:11 AM CDT INDICATION: PELVIC PAIN ADDITIONAL INFORMATION: Status post hysterectomy . COMPARISON: None. TECHNIQUE: Multiplanar kohler scale and color Doppler ultrasound of the pelvis were obtained by transvaginal examination postvoid. FINDINGS: Uterus: Surgically absent. Right ovary: Size: 1.9 x 1.5 x 1.3 cm Cysts: None. Masses: None. Left ovary: Size: 1.7 x 1.6 x 1.3 cm Cysts: None. Masses: None. Adnexa: Normal. Free fluid: None. Other findings: None. IMPRESSION: Unremarkable pelvic ultrasound status post hyste rectomy . SL: [id number] Breast Mammo Scrn PRITESH - BREAST MAMMO SCRN PRITESH INCL CAD MA 2016 [facility] incl CAD MA BILATERAL DIGITAL SCREENING MAMMOGRAM WITH CAD: 10/07/2016 CLINICAL: Screening. Current study was evaluated with a Inner Tube Cutter d Detection (CAD) system. Comparison is made to exams dated: 04/25/2014 mammogram and 08/02/2015 mammogram - [facility]. There are scattered fibroglandular densities in both breasts. No significant masses, calci fications, or other findings are seen in either breast. There has been no significant interval change. IMPRESSION: BENIGN There is no mammographic kash[place] dence of malignancy. A 1 year screening mammogram is recommended. Tristen mak/penrad:10/08/2016 15:29:57 Company Accountant: Dedra Farah, [facility] This exam was dictated and i nterpreted by [id number] for [facility]. letter sent: Normal exam Mammogram BI-RADS: 2 Benign Digital Mammo Screening - DIGITAL MAMMO SCREENING PRITESH MA 016 [facility] Pritesh MA BILATERAL DIGITAL SCREENING MAMMOGRAM WITH CAD: 08/02/2015 CLINICAL: Screening. Current study was evaluated with a Inner Tube Cutter d Detection (CAD) system. Comparison is made to exams dated: 04/25/2014 mammogram and 01/04/2013 mammogram - [facility]. The tissue of both breasts is almost entirely fa t. No significant masses, calci fications, or other findings are seen in either breast. There has been no significant interval change. IMPRESSION: NEGATIVE There is no mammographic kashmir dence of malignancy. A 1 year screening mammogram is recommended. Negrito olmsteadv/penrad:08/02/2015 14:48:18 Company Accountant: Aletha Meadows [facility] This exam was dictated and i nterpreted by [id number] for [facility]. letter sent: Normal exam Mammogram BI-RADS: 1 Negative Stomach emptying NM RADIONUCLIDE GASTRIC EMPTYING STUDY, 015 02/05/2015 [place] HISTORY: Abdominal pain. TECHNIQUE: Radionuclide gas tric emptying study was performed after the patient ingested oatmeal containing 1 mCi of technetium labeled sulfur colloid. FINDINGS: 50% of gastric radioactivity exits the stomach by 30 minutes indicating normal radionuclide gastric emptying. CONCLUSION: Normal radionuclide gastric emptying study. Consultation Notes No Data Provided for This Section Discharge Summaries No Data Provided for This Section History and Physicals No Data Provided for This Section Vital Signs Vital Sign Value Date Comments Source Weight 60.682 10/12/2017 [facility] BMI Calculated 22.96 10/12/2017 [facility] Systolic (mm Hg) 134 10/12/2017 [facility] Diastolic (mm Hg) 76 10/12/2017 [facility] Heart Rate 76 10/12/2017 [facility] Height 162.56 cm 10/12/2017 [facility] Grou p Systolic (mm Hg) 119 08/05/2016 [facility] Center Diastolic (mm Hg) 65 08/05/2016 [facility] Heart Rate 61 08/05/2016 [facility] Respitory Rate 18 08/05/2016 [facility] Temperature Oral (F) 97.9 F 08/05/2016 [facility] Systolic (mm Hg) 125 08/05/2016 [facility] dical Center Diastolic (mm Hg) 63 08/05/2016 [facility] Respitory Rate 19 08/05/2016 [facility] Temperature Oral (F) 98.7 F 08/05/2016 [facility] Heart Rate 60 08/05/2016 [facility] Systolic (mm Hg) 119 08/05/2016 [facility] dical Center Diastolic (mm Hg) 67 08/05/2016 [facility] Respitory Rate 18 08/05/2016 [facility] Temperature Oral (F) 97.6 F 08/05/2016 [facility] Heart Rate 87 08/05/2016 [facility] BMI Calculated 21.67 2016 [facility] Height 162.56 cm 2016 [facility] Weight 57.273 2016 [facility] Weight 120 02/04/2016 [facility] Height 64 02/04/2016 [facility] Heart Rate 76 02/04/2016 [facility] Diastolic (mm Hg) 78 02[facility]04/2016 [facility] Systolic (mm Hg) 100 02/04/2016 [facility] Weight 123 01/17/2016 [facility] Height 64 01/17/2016 [facility] Heart Rate 72 01/17/2016 [facility] Diastolic (mm Hg) 80 01/17/2016 [facility] Systolic (mm Hg) 110 01/17/2016 [facility] Heart Rate 67 07/22/2015 [place] Temperature Oral (F) 97.9 F 07/22/2015 [place] Respitory Rate 18 07/22/2015 [place] Systolic (mm Hg) 130 07/22/2015 [place] Diastolic (mm Hg) 59 07/22/2015 [place] Weight 55.591 07/22/2015 [place] Temperature Oral (F) 98.2 F 07/22/2015 [place] Heart Rate 61 07/22/2015 [place] Respitory Rate 18 07/22/2015 [place] Systolic (mm Hg) 135 07/22/2015 [facility] [place] Diastolic (mm Hg) 77 07/22/2015 [place] Weight 125 01/04/2015 [facility] Temperature Oral (F) 97.9 F 01/04/2015 [facility] Systolic (mm Hg) 105 01/04/2015 [facility] Diastolic (mm Hg) 67 01/04/2015 [facility] Heart Rate 51 01/04/2015 [facility] Respitory Rate 10 01/04/2015 [facility] Temperature Oral (F) 98.7 F 11/23/2014 [facility] Systolic (mm Hg) 110 11/23/2014 [facility] Diastolic (mm Hg) 62 11/23/2014 [facility] Heart Rate 53 11/23/2014 [facility] Respitory Rate 10 11/23/2014 [facility] Weight 127 10/27/2014 [facility] Systolic (mm Hg) 108 10/27/2014 [facility] Diastolic (mm Hg) 70 10/27/2014 [facility] Heart Rate 52 10/27/2014 [facility] Weight 148 07/31/2014 [facility] Temperature Oral (F) 98.1 F 07/31/2014 [facility] Heart Rate 80 07/31/2014 [facility] Systolic (mm Hg) 116 07/31/2014 [facility] Diastolic (mm Hg) 70 07/31/2014 [facility] Weight 148 07/12/2014 [facility] Heart Rate 80 07/12/2014 [facility] Systolic (mm Hg) 110 07/12/2014 [facility] Diastolic (mm Hg) 68 07/12/2014 [facility] Weight 153 06/21/2014 [facility] Temperature Oral (F) 98.3 F 06/21/2014 [facility] Heart Rate 80 06/21/2014 [facility] Weight 161 06/13/2014 [facility] Systolic (mm Hg) 114 06/13/2014 [facility] Diastolic (mm Hg) 77 06/13/2014 [facility] Temperature Oral (F) 98.2 F 06/13/2014 [facility] Heart Rate 77 06/13/2014 [facility] Respitory Rate 18 06/13/2014 [facility] Weight 159.8 05/25/2014 [facility] Temperature Oral (F) 98.2 F 05/25/2014 [facility] Heart Rate 80 05/25/2014 [facility] Systolic (mm Hg) 114 05/25/2014 [facility] Diastolic (mm Hg) 76 05/25/2014 [facility] Weight 164.01 05/19/2014 [facility] Temperature Oral (F) 98.9 F 05/19/2014 [facility] Heart Rate 103 05/19/2014 [facility] Systolic (mm Hg) 116 05/19/2014 [facility] Diastolic (mm Hg) 77 05/19/2014 [facility] Systolic (mm Hg) 114 04/25/2014 [facility] Diastolic (mm Hg) 76 04/25/2014 [facility] Heart Rate 87 04/25/2014 [facility] Weight 164 02/24/2014 [facility] Temperature Oral (F) 99.2 F 02/24/2014 [facility] Heart Rate 64 02/24/2014 [facility] Systolic (mm Hg) 114 02/24/2014 [facility] Diastolic (mm Hg) 78 02/24/2014 [facility] Weight 159 12/09/2013 [facility] Weight 159 11/24/2013 [facility] Temperature Oral (F) 97.4 F 11/24/2013 [facility] Heart Rate 74 11/24/2013 [facility] Systolic (mm Hg) 120 11/24/2013 [facility] Diastolic (mm Hg) 73 11/24/2013 [facility] Respitory Rate 16 11/24/2013 [facility] Weight 161 07/18/2013 [facility] Respitory Rate 18 07/18/2013 [facility] Temperature Oral (F) 98.8 F 07/18/2013 [facility] Heart Rate 88 07/18/2013 [facility] Systolic (mm Hg) 120 07/18/2013 [facility] Diastolic (mm Hg) 70 07/18/2013 [facility] Weight 157.2 05/30/2013 [facility] Respitory Rate 16 05/30/2013 [facility] Temperature Oral (F) 98.1 F 05/30/2013 [facility] Systolic (mm Hg) 124 05/30/2013 [facility] Diastolic (mm Hg) 72 05/30/2013 [facility] Heart Rate 84 05/30/2013 [facility] Weight 155 05/06/2013 [facility] Temperature Oral (F) 98.0 F 05/06/2013 [facility] Heart Rate 84 05/06/2013 [facility] Systolic (mm Hg) 110 05/06/2013 [facility] Diastolic (mm Hg) 80 05/06/2013 [facility] Weight 160 01/21/2013 [facility] Temperature Oral (F) 98.1 F 01/21/2013 [facility] Heart Rate 91 01/21/2013 [facility] Systolic (mm Hg) 110 01/21/2013 [facility] Diastolic (mm Hg) 70 01/21/2013 [facility] Weight 158 01/04/2013 [facility] Height 65 01/04/2013 [facility] Respitory Rate 19 01/04/2013 [facility] Heart Rate 68 01/04/2013 [facility] Systolic (mm Hg) 122 01/04/2013 [facility] Diastolic (mm Hg) 80 01/04/2013 [facility] Encounters Location Location Encounter Encounter Reason Attending ADM DC Stat us Source Details Type Number For Provider Date Date Visit [facility] [id number] Daina 12/09 12/09 [place] Medical Visit [id number] Krista /2013 Padmini Wilson MD Group Orthopedics [facility] [id number] Huat Maulik, 02/24 02/24 [place] Medical Visit [id number] MD /2013 [facility] [place] [facility] Office [id number] Huat Maulik, 04/25 04/25 [place] [id number] [facility] [place] [facility] OB-Manual Winder [facility] Lab Report [id number] Huat Maulik, 04/25 04/25 [place] [id number] [place] [facility] Lab Report [id number] Huat Maulik, 05/15 05/15 [place] [id number] [place] [facility] [place] [facility] Lab Report [id number] Huat Maulik, 05/19 05/19 [place] [id number] [place] [facility] [place] [facility] Gastroenter ology [facility] Office [id number] Huat Maulik, 05/19 05/19 [place] Medical [place] [id number] MD [facility] [place] [facility] Gastro[facility] [id number] Huat Maulik, 05/25 05/25 [place] [id number] MD [facility] [place] [facility] [id number] Huat Maulik, 06/13 06/13 [place] [id number] [facility] [place] [facility] [id number] Huat Maulik, 06/21 06/21 [place] Medical [place] [id number] /2013 [facility] [place] [facility] [id number] Nadim 07/12 07/12 [place] Medical Visit [id number] [place] Ev /[facility] [facility] [id number] Huat Maulik, 07/31 07/31 [place] Medical Visit [id number] Medic sandra [facility] Family Practice [facility] [id number] Huat Maulik, 10/27 10/27 [place] Medical Visit [id number] [facility] OB-Manual [facility] Lab Report [id number] Glenda 11/09 11/09 [place] [id number] MD Mary /2014 Med [facility] Pulminology [facility] Lab Report [id number] Glenda 11/23 11/23 [place] [address] MD Mary /2014 Med [facility] Lab Report [id number] Sharrone 01/04 01/04 [place] [address] BRADY Cross /2014 Ga dical [facility] Outpatient [id number] Naren Carreno 02/05 02/06 [facility] [place] Outpatient [id number] GLENDA 04/03 [facility] Out[facility] [id number] SHARRONE 05/07 Active [facility] 2 [facility] Outpatient [id number] SHARRONE 07/10 Active [facility] [id number] Eric 07/22 07/22 Sugar [facility] 4 [facility] [place] [facility] Outpatient [id number] JUSTIN 07/25 [facility] 5 Tony Outpatient [id number] SHARRONE 08/02 Active [facility] 7 JAGRUTI [facility] Outpatient [id number] DAINA-GEORGES 08/02 Acti ve [facility] 4 KRISTA /2016 Steph nn Outpatient [id number] MAMMO VISIT 08/02 Act fish [facility] Outpatient [id number] ANDREA 08/16 Active [facility] 8 Tony Outpatient [id number] JUSTIN 08/31 Active [facility] 9 [place] /2016 Tony Outpatient [id number] ANDREA 09/12 Active [facility] 1 [facility] Outpatient [id number] ELVIA 09/12 Activ e [facility] 2 CHARLES [facility] Outpatient [id number] JUSTIN 09/20 Active [facility] 0 [place] /2016 Tony Outpatient [id number] JUSTIN 10/02 Active [facility] 3 [place] /2016 Tony Outpatient [id number] ANDREA 12/17 Active [facility] 4 MUCH [facility] Outpatient [id number] SHARRONE 12/20 Active [facility] 5 JAGRUTI [facility] Outpatient [id number] SHARRONE 01/10 Active [facility] 6 JAGRUTI [place] hernia [id number] 01/16 01/16 [place] Fa m Family [id number] /2015 Pract ice Practice [id number] Ass oc Associates eb3 [place] hernia [id number] 01/16 01/16 [place] Fa [place] Family [id number] /2015 Pract ice Practice [id number] [facility] 16f [place] hernia [id number] 01/16 01/16 [place] Fa [place] [id number] /2015 Pract ice Practice [id number] [facility] 629 [place] hernia [id number] 01/16 01/16 [place] Fa [place] Family [id number] /2015 Pract ice Practice [id number] [facility] b1d [place] hernia [id number] 01/16 01/16 [place] Fa [place] Family [id number] /2015 Pract ice Practice [id number] [facility] be4 [place] Needs [id number] 01/17 01/17 [place] Fa [place] Family referral [id number] /2015 Pra ctice Practice [id number] [facility] 3a1 [place] Needs [id number] 01/17 01/17 [place] Fa [place] Family referral [id number] /2015 Pra ctice Practice [id number] [facility] 536 [place] Needs [id number] 01/17 01/17 [place] Fa [place] Family referral [id number] /2015 Pra ctice Practice [id number] [facility] 778 [place] Needs [id number] 01/17 01/17 [place] Fa m Family referral [id number] /2015 Pra ctice Practice [id number] [facility] 0b3 [place] annual/2w [id number] 02/03 02/03 [place] Fam Family [id number] /2015 Pract ice Practice [id number] [facility] 9d0 [place] annual/2w [id number] 02/03 02/03 [place] Fam Family [id number] /2015 Pract ice Practice [id number] [facility] oc Associates 54b [place] annual/2w [id number] 02/03 02/03 [place] Fam Family [id number] /2015 Pract ice Practice [id number] Ass oc Associates 5a8 [facility] Bedded [id number] Adam Conway 04/14 04/14 [facility] Outpatient 6 [facility] Outpatient [id number] DAINA-GEORGES 05/20 Acti ve [facility] 7 KRISTA Steph [facility] Clinical [id number] 07/31 07/31 [place] Fam Family Advice [id number] /2016 Pract ice Practice During [id number] Ass oc Associates Business 1be Hours [place] Clinical [id number] 07/31 07/31 [place] Fam Family Advice [id number] /2016 Pract ice Practice During [id number] Ass oc Associates Business bc1 Hours [facility] Bedded [id number] Rodolfo Maynard 08/05 08/05 [facility] Outpatient [facility] Outpatient [id number] ELVIA 09/01 Activ e [facility] 0 CHARLES /2017 [facility] Refill [id number] 09/08 09/08 [place] Fa m Family [id number] Pract ice Practice [id number] Ass oc Associates 64c Outpatient [id number] MAMMO VISIT 10/07 Act fish [facility] Tony Outpatient [id number] DAINA-GEORGES 10/07 Acti ve [facility] 8 KRISTA /2017 Steph nn Outpatient [id number] ELVIA 10/[address] [facility] 1 [facility] Outpatient [id number] SONO VISIT 10/[address] [facility] Tony Outpatient [id number] DAINA-GEORGES 10/[address] [facility] 2 Steph nn Outpatient [id number] DAINA-GEORGES 10/[address] 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 Outpatient [id number] MAMMO VISIT 10/[address] [facility] [address] [facility] Ambulatory [id number] NURSE VISIT 10/15 10/15 Radiology Pre-Reg Medica l [facility] Family Outpatient [id number] NURSE VISIT 10/15 10/16 Medicine Medical [place] [facility] SUCTION OPERATOR Phone [id number] 04/26 04/28 [facility] SUCTION OPERATOR Phone [phone] 04/28 04/30 [facility] Procedures Procedure Code Date Perfomer Comments Source Hernia repair [id number] 2016 Medical Group vaginal Pap smear [id number] 04/25/2014 normal Medi chele results Group Anterior and [id number] 03/17/2013 Medical posterior Group, colporrhaphy [facility], [place] Cystoscopy [id number] 03/17/2013 Medical Group,[facility] [place] mammogram [id number] 01/04/2013 [facility] colonoscopy [id number] 10/24/2009 [facility] Cholecystectomy [id number] Medica l Group,[facility] [place] Excision of bunion [id number] Med ical Group,[facility], [place] Hysterectomy [id number] [facility], [place] Assessment and Plan No Data Provided for This Section Plan of Care No Data Provided for This Section Social History Social History Date Source Social History ElementQualifiersDate Reported 09/05/2016 [facility] Recreational drugs: . Do you use recreational drugs? NO September 05, 2016 Tobacco Use: . Are you a: nonsmoker September 05, 2016 Caffeine: . 1 CUP COFFEE/ DAY September 05, 2016 Do you drink? . SOCIALLY September 05, 2016 Social History TypeResponse 08/02/2015 Medical [facility]on Sexual Sexually active: Yes. Self Breast Exam No. Alcohol Never Smoking Status Never smoker; Type: Cigars; Exposure to Tobacco Smoke None; Cigarette Smoking Last 365 Days No; Reg Smoking Cessation Counseling No entered on: 10/12/17 Social History TypeResponse 08/02/2015 [facility] Sexual Sexually active: Yes. Self Breast Exam No. 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 Smoking Status Never smoker; Exposure to Tobacco Smoke None; Cigarette Smoking Last 365 Days No; Reg Smoking Cessation Counseling No Family History Value Date Source QualifierDescriptionCommentDate Reported 02/06/2016 [place] [facility] Maternal Grandmother Comment not available Feb 04, 2016 Paternal Grandmother Comment not available Feb 04, 2016 Siblings Comment not available Feb 04, 2016 Maternal Grandfather Comment not available Feb 04, 2016 Children Comment not available Feb 04, 2016 Father Comment not available Feb 04, 2016 Paternal Grandfather Comment not available Feb 04, 2016 Mother Comment not available Feb 04, 2016 Other: Comment not available Feb 04, 2016 QualifierDescriptionCommentDate Reported 02/01/2016 [place] [facility] Maternal Grandmother Comment not available Feb 04, 2016 Paternal Grandmother Comment not available Feb 04, 2016 Siblings Comment not available Feb 04, 2016 Maternal Grandfather Comment not available Feb 04, 2016 Children Comment not available Feb 04, 2016 Father Comment not available Feb 04, 2016 Paternal Grandfather Comment not available Feb 04, 2016 Mother Comment not available Feb 04, 2016 Other: Comment not available Feb 04, 2016 Advance Directives No Data Provided for This Section Functional Status No Data Provided for This Section
--- NOTE | 2020-02-09 14:02 | RAD REPORT ---
EXAM DESCRIPTION: CT - Stone Protocol - 02/09/2020 1:50 pm CLINICAL HISTORY: Flank pain. Right flank pain COMPARISON: CT ABD PELVIS W CONTRAST dated 06/14/2014 TECHNIQUE: Axial images were obtained without oral or IV contrast. Lack of contrast limits solid org an and vascular assessment. The jbikr-vy-kikq spans the entirety of the system partially obscuring uppermost abdomen and lung bases. Coronal reformatted images were obtained and reviewed. All CT scans are performed using dose optimization technique as appropriate and may include automated exposure control or mA/KV adjustment according to patient size. FINDINGS: The lower lung reinoso are clear. Cholecystectomy clips. Imaged portions of the liver and spleen show no suspicious findings on non-contrast imaging. The panc reas and adrenal glands are normal. No pathologic lymphadenopathy in the abdomen or pelvis. No urinary tract stones or obstructive uropathy. No bowel obstruction, free air, free fluid or abscess. Sigmoid diverticulosis without diverticulitis. The appendix is not identified as a discrete structure, however, no secondary findings of appendicit is are identified. Moderate stool throughout the colon. Moderate lumbosacral degenerative changes. IMPRESSION: No urinary tract stones or obstructive uropathy.
--- NOTE | 2020-02-09 15:01 | ER ---
Nurse's Notes [facility] Name: Jennifer Cisneros Age: 64 yrs Sex: Female : 1955 Arrival Date: 02/09/2020 Time: 11:51 Bed 15 Private MD: Diagnosis: Right flank pain;Hematuria Presentation: 02/08 12:07 Coronavirus screen: Client denies travel out of the [place] in the last 14 days. At this ll1 time, the client does not indicate any symptoms associated with coronavirus-19. Ebola Screen: Patient denies travel to an Ebola-affected area in the 21 days before illness onset. Initial Sepsis Screen: Does the patient meet any 2 criteria? No. Patient's initial sepsis screen is negative. Risk Assessment: Do you want to hurt yourself or someone else? Patient reports no desire to harm self or others. Onset of symptoms was February 08, 2020. 12:07 Method Of Arrival: Ambulatory ll1 12:07 Acuity: RITESH 3 ll1 12:09 Chief complaint: Patient states: Right flank pain since last night. + nausea. No fever ll1 or dysuria. Historical: - Allergies: 12:08 Tylenol-Codeine #3; ll1 - PMHx: 12:08 hiatal hernia; ll1 - PSHx: 12:08 Hysterectomy; Cholecystectomy; Appendectomy; ll1 - Immunization history:: Flu vaccine status is unknown. - Social history:: Smoking status: Patient denies any tobacco usage or history of. Patient/guardian denies using alcohol, street drugs. Screenin:51 Abuse screen: Denies threats or abuse. Nutritional screening: No deficits noted. tw2 Tuberculosis screening: No symptoms or risk factors identified. Fall Risk None identified. Assessment: 12:51 Reassessment: Patient appears in no apparent distress at this time. No changes from tw2 previously documented assessment. Patient and/or family updated on plan of care and expected duration. Pain level reassessed. Patient is alert, oriented x 3, equal unlabored respirations, skin warm/dry/pink. 13:45 Reassessment: Patient appears in no apparent distress at this time. No changes from tw2 previously documented assessment. Patient and/or family updated on plan of care and expected duration. Pain level reassessed. Patient is alert, oriented x 3, equal unlabored respirations, skin warm/dry/pink. Patient states feeling better. Vital Signs: 12:07 BP 114 / 73; Pulse 65; Resp 17; Temp 98.4; Pulse Ox 98% ; Weight 68.04 kg; Height 5 ft. ll1 4 in. (162.56 cm); Pain 8/10; 12:51 BP 124 / 60; Pulse 63; Resp 17; Pulse Ox 99% on R/A; tw2 13:42 BP 125 / 51; Pulse 63; Resp 17; Pulse Ox 98% on R/A; Pain 5/10; tw2 15:18 BP 120 / 54; Pulse 63; Resp 16; Pulse Ox 98% on R/A; ph 15:30 Temp 98.0(O); ph 12:07 Body Mass Index 25.75 (68.04 kg, 162.56 cm) ll1 ED Course: 11:51 Patient arrived in ED. ds1 12:08 Triage completed. ll1 12:09 Nain Duran MD is Attending Physician. kdr 12:09 Arm band placed on Patient placed in an exam room, on a stretcher. ll1 12:09 Placed in gown. Bed in low position. Call light in reach. Pulse ox on. NIBP on. Warm tw2 blanket given. 12:43 Cheli Vinson, PERLA is Primary Nurse. tw2 15:30 No provider procedures requiring assistance completed. IV discontinued, intact, ph bleeding controlled, No redness/swelling at site. Pressure dressing applied. Administered Medications: 12:45 Drug: Zofran (Ondansetron) 4 mg Route: IVP; Site: left wrist; tw2 15:29 Follow up: Response: No adverse reaction ph 12:48 Drug: TORadol - Ketorolac 15 mg Route: IVP; Site: left wrist; tw2 15:29 Follow up: Response: No adverse reaction ph Outcome: 15:01 Discharge ordered by . kdr 15:31 Discharged to home ambulatory. ph 15:31 Condition: good 15:31 Discharge instructions given to family, Instructed on discharge instructions, follow up and referral plans. medication usage, Demonstrated understanding of instructions, follow-up care, medications, Prescriptions given X 4. 15:31 Patient left the ED. ph Signatures: Nain Duran MD MD [facility] ds1 Shivani Zeng RN RN ph Cheli Vinson, RN RN tw2 Sherri Lopez, RN RN ll1
--- NOTE | 2020-02-09 15:01 | EDPHYS ---
Physician Documentation [facility] Name: Jennifer Cisneros Age: 64 yrs Sex: Female : 1955 Arrival Date: 02/09/2020 Time: 11:51 Bed 15 Private MD: ED Physician Nain Duran HPI: 02/08 13:08 This 64 yrs old Black Female presents to ER via Ambulatory with complaints of R Side kdr Pain. 13:08 Right flank pain since last night. Onset: The symptoms/episode began/occurred suddenly, kdr last night. Severity of symptoms: At their worst the symptoms were mild moderate just prior to arrival, in the emergency department the symptoms are unchanged. The patient has not experienced similar symptoms in the past. The patient has not recently seen a physician. Historical: - Allergies: 12:08 Tylenol-Codeine #3; ll1 - PMHx: 12:08 hiatal hernia; ll1 - PSHx: 12:08 Hysterectomy; Cholecystectomy; Appendectomy; ll1 - Immunization history:: Flu vaccine status is unknown. - Social history:: Smoking status: Patient denies any tobacco usage or history of. Patient/guardian denies using alcohol, street drugs. ROS: 13:08 Constitutional: Negative for fever, chills, and weight loss, Eyes: Negative for injury, kdr pain, redness, and discharge, ENT: Negative for injury, pain, and discharge, Neck: Negative for injury, pain, and swelling, Cardiovascular: Negative for chest pain, palpitations, and edema, Respiratory: Negative for shortness of breath, cough, wheezing, and pleuritic chest pain, : Negative for injury, bleeding, discharge, and swelling, MS/Extremity: Negative for injury and deformity, Skin: Negative for injury, rash, and discoloration, Neuro: Negative for headache, weakness, numbness, tingling, and seizure activity. Psych: Negative for depression, anxiety, suicide ideation, homicidal ideation, and hallucinations, Allergy/Immunology: Negative for hives, rash, and allergies, Endocrine: Negative for neck swelling, polydipsia, polyuria, polyphagia, and marked weight changes, Hematologic/Lymphatic: Negative for swollen nodes, abnormal bleeding, and unusual bruising. 13:08 Abdomen/GI: Positive for abdominal pain, nausea, Negative for constipation, abdominal cramps, abdominal distension, black/tarry stool, rectal pain, rectal bleeding. 13:08 Back: Positive for pain at rest, flank pain, on the right. Exam: 13:08 Constitutional: This is a well developed, well nourished patient who is awake, alert, kdr and in no acute distress. Head/Face: Normocephalic, atraumatic. Eyes: Pupils equal round and reactive to light, extra-ocular motions intact. Lids and lashes normal. Conjunctiva and sclera are non-icteric and not injected. Cornea within normal limits. Periorbital areas with no swelling, redness, or edema. Neck: Trachea midline, no thyromegaly or masses palpated, and no cervical lymphadenopathy. Supple, full range of motion without nuchal rigidity, or vertebral point tenderness. No Meningismus. Chest/axilla: Normal chest wall appearance and motion. Nontender with no deformity. No lesions are appreciated. Cardiovascular: Regular rate and rhythm with a normal S1 and S2. No gallops, murmurs, or rubs. Normal PMI, no JVD. No pulse deficits. Respiratory: Lungs have equal breath sounds bilaterally, clear to auscultation and percussion. No rales, rhonchi or wheezes noted. No increased work of breathing, no retractions or nasal flaring. Skin: Warm, dry with normal turgor. Normal color with no rashes, no lesions, and no evidence of cellulitis. MS/ Extremity: Pulses equal, no cyanosis. Neurovascular intact. Full, normal range of motion. Neuro: Awake and alert, GCS 15, oriented to person, place, time, and situation. Cranial nerves II-XII grossly intact. Motor strength 5/5 in all extremities. Sensory grossly intact. Cerebellar exam normal. Normal gait. Psych: Awake, alert, with orientation to person, place and time. Behavior, mood, and affect are within normal limits. Vital Signs: 12:07 BP 114 / 73; Pulse 65; Resp 17; Temp 98.4; Pulse Ox 98% ; Weight 68.04 kg; Height 5 ft. ll1 4 in. (162.56 cm); Pain 8/10; 12:51 BP 124 / 60; Pulse 63; Resp 17; Pulse Ox 99% on R/A; tw2 13:42 BP 125 / 51; Pulse 63; Resp 17; Pulse Ox 98% on R/A; Pain 5/10; tw2 15:18 BP 120 / 54; Pulse 63; Resp 16; Pulse Ox 98% on R/A; ph 15:30 Temp 98.0(O); ph 12:07 Body Mass Index 25.75 (68.04 kg, 162.56 cm) ll1 MDM: 14:58 Data reviewed: vital signs, nurses notes, lab test result(s), radiologic studies. kdr Counseling: I had a detailed discussion with the patient and/or guardian regarding: the historical points, exam findings, and any diagnostic results supporting the discharge/admit diagnosis, lab results, radiology results, the need for outpatient follow up. ED course: The patient felt better with the interventions given. ED course: Though the urine did not evidence any suggestion of infection, there was 1+ blood. Will treat short course for kidney stone. 15:01 Patient medically screened. kdr 02/08 12:31 Order name: Basic Metabolic Panel kdr 02/08 12:31 Order name: CBC with Diff kdr 02/08 12:31 Order name: Hepatic Function kdr 02/08 12:31 Order name: Lipase kdr 02/08 12:59 Order name: CBC with Automated Diff; Complete Time: 13:08 EDMS 02/08 13:08 Order name: Basic Metabolic Panel; Complete Time: 14:33 EDMS 02/08 12:31 Order name: Urine Dipstick-Ancillary (obtain specimen); Complete Time: 14:06 kdr 02/08 12:32 Order name: CT Stone Protocol [facility] 02/08 13:08 Order name: Liver (Hepatic) Function; Complete Time: 14:33 EDMS 02/08 13:08 Order name: Lipase; Complete Time: 14:33 EDMS 02/08 14:04 Order name: CT; Complete Time: 14:33 EDMS 02/08 14:17 Order name: Urine Dipstick--Ancillary (enter results) bd 02/08 12:31 Order name: IV Saline Lock; Complete Time: 12:44 kdr 02/08 12:31 Order name: Labs collected and sent; Complete Time: 12:39 kdr Administered Medications: 12:45 Drug: Zofran (Ondansetron) 4 mg Route: IVP; Site: left wrist; tw2 15:29 Follow up: Response: No adverse reaction ph 12:48 Drug: TORadol - Ketorolac 15 mg Route: IVP; Site: left wrist; tw2 15:29 Follow up: Response: No adverse reaction ph Disposition: 02/09/20 15:01 Discharged to Home. Impression: Right flank pain, Hematuria. - Condition is Stable. - Discharge Instructions: Hematuria, Adult. - Prescriptions for Ibuprofen 600 mg Oral Tablet - take 1 tablet by ORAL route every 6 hours As needed take with food; 12 tablet. Zofran 4 mg Oral Tablet - take 1 tablet by ORAL route every 4-6 hours As needed; 10 tablet. Flomax 0.4 mg Oral Capsule, Sust. Release 24 hr - take 1 capsule by ORAL route once daily 1/2 hour following the same meal each day; 5 capsule. Bactrim DS 800- 160 mg Oral Tablet - take 1 tablet by ORAL route every 12 hours for 3 days; 6 tablet. - Medication Reconciliation Form, Thank You Letter, Antibiotic Education form. - Follow up: Private Physician; When: 2 - 3 days; Reason: If symptoms return, Further diagnostic work-up, Recheck today's complaints, Continuance of care, Re-evaluation by your physician. - Problem is new. - Symptoms have improved. Signatures: Dispatcher [employer] EDMS Nain Duran MD MD kdr Shivani Zeng RN RN ph Cheli Vinson RN RN tw2 Sherri Lopez RN RN ll1 Corrections: (The following items were deleted from the chart) 15:31 15:01 02/09/2020 15:01 Discharged to Home. Impression: Right flank pain; Hematuria. ph Condition is Stable. Forms are Medication Reconciliation Form, Thank You Letter, Antibiotic Education, Prescription Opioid Use. Follow up: Private Physician; When: 2 - 3 days; Reason: If symptoms return, Further diagnostic work-up, Recheck today's complaints, Continuance of care, Re-evaluation by your physician. Problem is new. Symptoms have improved. kdr
[2020-02-09 15:41] VITALS: O2SAT 98
[2020-02-09 15:43] VITALS: BP 120/54
[2020-02-09 15:44] VITALS: TEMP 98
[2020-02-09 16:41] LABS: Urine Blood 1+ (NEG); Urine Glucose NEGATIVE (NEG); Urine Protein NEGATIVE (NEG); Urine Specific Gravity 1.025 (1.005-1.030); Urine pH 5.5 (5.0-7.0)
== END 2020-02-09 15:31 | disposition home or self-care (01) ==
LOC: ER 11:48
DX: R10.9 Unspecified abdominal pain (principal); R31.9 Hematuria, unspecified; Z88.6 Allergy status to analgesic agent
CPT/HCPCS: 85025; 80048; 36415; 80076; 81003; 83690; 76377; 74176; J2405; 96374; 96375; 99283

== ENCOUNTER 2021-12-02 02:09 | Emergency (ER) | payer OTHER ==
[2021-12-02] MEDS ORDERED: ONDANSETRON 4 MG/2 ML VIAL ONE (02:49)
[2021-12-02] MEDS ORDERED: NA CHLORIDE 0.9% 1,000 ML ONE (02:49)
[2021-12-02] MEDS ORDERED: FAMOTIDINE 20 MG/2 ML VIAL IV ONE (02:49)
[2021-12-02 02:50] LABS: Absolute Lymphocytes (CBC) 0.7 K/uL (0.7-4.9); Hematocrit 39.2 % (36.0-45.0); Lymphocytes % 4.4 % (15.3-44.8); MPV 8.1 fL (7.6-11.3)
[2021-12-02 03:01] LABS: Albumin 3.9 g/dL (3.4-5.0); Bilirubin Total 0.3 mg/dL (0.2-1.0); Potassium 3.9 mmol/L (3.5-5.1); Protein, Total 7.7 g/dL (6.4-8.2); Troponin High Sensitivity 4.1 pg/mL (<58.9)
[2021-12-02 03:44] LABS: Blood Morphology Comment NOT SEEN (NOT SEEN); Platelet Estimate ADEQ
--- OUTSIDE RECORDS SUMMARY | 2021-12-02 04:39 | XMS REPORT | Continuity of Care Document ---
:1955 Author Organization [facility] t Address [address] [place] [address] Care Team Providers Name Role Phone Padmini Kern Attending Clinician Unavailable Padmini Garcia Attending Clinician Unavailable Padmini Kern Admitting Clinician Unavailable Viri Patino Admitting Clinician Unavailable Payers Payer Name Policy Type Policy Number Effective Date Expiration Date S ource Problems This patient has no known problems. Allergies, Adverse Reactions, Alerts Allergy Allergy Status Severity Reaction(s) Onset Inactive Treating Comm ents Source Name Type Date Date Clinician No Known DA Active U 2020-07 [facility] Allergie 08-18 [facility] 00:00: d 00 [facility] Medications This patient has no known medications. Procedures This patient has no known procedures. Encounters Start End Encounter Admission Attending Care Care Encounter Source Date/Time Date/Time Type Type Clinicians Facility Department ID 2021-06-17 Inpatient Bhakti Segovia H[facility] ENDO [id number] [facility] 14:00:00 [id number] [facility] 2021-06-20 2021-06-20 Outpatient EL Radha HCAPM DAYS [id number] [facility] 06:18:00 06:18:00 Lewis [id number] [facility] 2021-06-20 2021-06-20 Outpatient EL Garcia HCAPM HCAPM [id number] [facility] 06:18:00 06:18:00 Lewis 14 [facility] Results Test Description Test Time Test Comments Results Result Comments Source SURG 2021-06-21 14:37:00 Test Item Value Reference Range Interpretation Comme nts SURG RUN DATE: (test 06/21/21 H [facility] - LAB PAGE 1 RUN TIME: 7351 code = Specimen Inquiry RUN USER: INTERFACE SURG) PATIENT: SHANIQUA EPPERSON LOC: [place] U #: [id number] AGE/SX: 65/ F ROOM: RE06/20/21REG DR: Lewis Garcia MD : 53 BED: DIS: STATUS: [facility] TLOC: SPEC #: [id number] RECD: STATUS: AYAD RENarcisa #: [id number] NAVNEET: 06/20/21- SUBM DR: Lewis Garcia MD ENTERED: 06/20/21 SP TYPE: SURG OTHR DR: Debra Patino DO ORDERED: SURG PATH LVL 4 COPIES TO: Lewis Garcia MD [address] [place] [address] [phone] Debra Patino DO [address] [facility] [address] [place] [address] HISTOLOGY: TI SSUE ID BLK PCS ZENIA LEV PROCEDURE DISPOSITION ____ ___ ___ ___ STOMACH, NOS A 1 2 PROCED URES: SURG PATH LVL 4 (06/20/21-1128) TISSUES: A. STOMACH, NOS - GASTRIC BODY AND ANTRUM CPT CODES CPT CODE(S): 15371 , , , , , , FINAL DIAGNOSIS Stomach, body and antrum, biopsy: MILD CHRONIC GASTRITIS NEGATIVE FOR INTESTINAL METAPLASIA, DYSPLASIA, OR MALIGNANCY NEGATIVE FOR HELICOBACTER PYLORI ORGANISM S GROSS DESCRIPTION Gastric body and antrum biopsy. Received in formalin is a quiroz tissue fra gment, 0.5 cm, all as A. /valery/jack Grossing performed at [facility] Pathology, [address] [facility], [address], [place] [address]. Job Compositor: Clark Tineo M.D. CONTINUED ON NEXT P AGE RUN DATE: 06/21/21 H [facility] - LAB PAGE 2 RUN TIME: 1437 Specimen Inquiry RUN USER: INTERFACE SPEC #: [facility]:[id number] PATIENT: SHANIQUA EPPERSON #[id number] (Continued) MICROSCOPIC DESCRIPTION Gastric body and antrum biopsy. Sections demonstrate gastric mucosa with mild chronic inflammation. No dysplasia or malignancy is identified. No evidence of intestinal metaplasia or Helicobacter pylori organisms is seen. Signed SIGNATURE ON FILE Leonel Swain 06/21/21 1437 END OF REPORT BASIC METABOLIC [id number] 15:35:00 Test Item Value Reference Range Interpretation Comments SODIUM (test code = NA) 143 mmol/L 134-147 N POTASSIUM (test code = 3.8 mmol/L 3.4-5.0 N K) CHLORIDE (test code = 109 mmol/L 100-108 H CL) CARBON DIOXIDE (test 30 mmol/L 21-32 N code = CO2) ANION GAP (test code = 4.0 GAP calc 4.0-15.0 N GAP) GLUCOSE (test code = 93 MG/DL 70-110 N GLU) BLOOD UREA NITROGEN 9 MG/DL 7-18 N (test code = BUN) GLOMERULAR FILTRATION >=60 max estimate >60 RATE (test code = GFR) estGFR CREATININE (test code = 0.9 MG/DL 0.6-1.0 N CREAT) CALCIUM (test code = CA) 8.8 MG/DL 8.5-10.1 N COVID 19 INHOUSE [id number] 15:27:00 Test Item Value Reference Range Interpretation Comments COVID 19 INHOUSE AG NEGATIVE Negative Per manu facturer, (test code = negative result s should [id number]) be treated aspr esumptive and, if inconsi stent with clinical signs andsymptoms or necessary for patient man agement, should betested with an alternative mol ecular assay. Negative resultsdo not preclude SA RS-CoV-2 infection and s hould not be usedas the s ole basis for patient man agement decisions. Neg ative results should be considered in t he context of apatient's r ecent exposures, hist ory, presence of cli nicalsigns and symptoms co nsistent with COVID-19. CBC W/AUTO [id number] 15:22:00 Test Item Value Reference Range Interpretation Comments WHITE BLOOD CELL (test code = 7.2 K/mm3 3.5-11.0 N WBC) RED BLOOD CELL (test code = 4.06 M/mm3 4.70-6.10 L RBC) HEMOGLOBIN (test code = HGB) 12.6 G/DL 10.4-14.9 N HEMATOCRIT (test code = HCT) 38.8 % 31.5-44.1 N MEAN CELL VOLUME (test code = 95.6 Fl 84.5-98.6 N MCV) MEAN CELL HGB (test code = MCH) 31.0 pg 27.0-34.2 N MEAN CELL HGB CONCETRATION 32.5 G/DL 31.5-34.0 N (test code = MCHC) RED CELL DISTRIBUTION WIDTH 13.3 SD 11.5-14.5 N (test code = RDW) PLATELET COUNT (test code = 246 K/mm3 150-450 N PLT) MEAN PLATELET VOLUME (test code 10.10 fL 7.0-10.5 N = MPV) NEUTROPHIL % (test code = NT%) 54.6 % 40-76 N IMMATURE GRANULOCYTE % (test 0.3 % 0.0-5.0 N code = IG%) LYMPHOCYTE % (test code = LY%) 35.6 % 20.5-51.1 N MONOCYTE % (test code = MO%) 8.4 % 1.7-9.3 N EOSINOPHIL % (test code = EO%) 0.8 % 0.0-6.0 N BASOPHIL % (test code = BA%) 0.3 % 0.0-2.0 N NUCLEATED RBC % (test code = 0.0 /100WBC% 0.0-1.0 N NRBC%) NEUTROPHIL # (test code = NT#) 3.9 K/mm3 1.8-7.6 N IMMATURE GRANULOCYTE # (test 0.02 x10 3/uL 0.00-0.03 N code = IG#) LYMPHOCYTE # (test code = LY#) 2.6 K/mm3 0.6-3.2 N MONOCYTE # (test code = MO#) 0.6 K/mm3 0.3-1.1 N EOSINOPHIL # (test code = EO#) 0.1 K/mm3 0.0-0.4 N BASOPHIL # (test code = BA#) 0.0 K/mm3 0.0-0.1 N NUCLEATED RBC # (test code = 0.0 K/mm3 0.0-0.1 N NRBC#) MANUAL DIFF REQUIRED (test code NO DIFF/SCN CRITERIA = MDIFF) - CHEST 1 [id number] 14:55:00 [facility] 1955 Sex: F Name: SHANIQUA EPPERSON [facility] : 1955 Age/S: 65 / F [id number] Unit #: [id number] Loc: [place] [address] Phys: Didi Lux MDAcct: [id number] Dis Date: Status: PRE [facility] PHONE #:[phone] Exam Date: 06/17/20211453 FAX #: Reason: PREOP EXAMS: CPT: [id number] XR CHEST 1 V 09716 Fluoro Time: DAP (Gy m2): Air Kerma (mGy): EXAMINATION: Frontal chest radiograph INDICATION: PREOP, R10.13 COMPARISON: None LOCATION: S17 FINDINGS: Calcified right upper lobe nodule. No acute abnormality is seen inthe lungs. No pleural effusion or pneumothorax identified. Cardiac silhouette is normal in size. IMPRESSION: No acute abnormalityidentified. at 0203 Reported and signed by: Olaf Griggs M.D. CC: Didi Lux MD; Lewis Garcia MD; Debra Patino DO PAGE 1 Signed Report Name: SHANIQUA EPPERSON [facility] : 1955 Age/S: 65 / F [id number] Unit #: [id number] Loc: [place] [address] Phys: Didi Lux MD Acct: [id number] Dis Date: Status: PRE [facility] PHONE #: [phone] Exam Date: 06/17/20214FAX #: Reason: PREOP EXAMS: CPT: [id number] XR CHEST 1 V 53982 Fluoro Time: DAP (Gy m2): Air Kerma (mGy): <Continued> Technologist: Izabel Cummings RT(R) Trnscb Date/Time: 06/17/2021 (9390) [email or web address] Orig Print D/T: S: 06/17/2021 (8334) PAGE 2 Signed Report
--- NOTE | 2021-12-02 05:21 | EDPHYS ---
Physician Documentation [facility] Name: Jennifer Cisneros Age: 66 yrs Sex: Female : 1955 Arrival Date: 12/02/2021 Time: 02:13 Bed 20 Private MD: ED Physician Erick Storey HPI: 12/02 02:35 This 66 yrs old Black Female presents to ER via Unassigned with complaints of Vomiting, rn Pain. 02:35 The patient presents to the emergency department with nausea, vomiting, abdominal pain, rn of the abdomen diffusely. Onset: The symptoms/episode began/occurred last night. Possible causes: unknown. The symptoms are aggravated by nothing. The symptoms are alleviated by nothing. Associated signs and symptoms: Pertinent positives: abdominal pain, nausea, vomiting, Pertinent negatives: diarrhea, fever, GI bleeding. Severity of symptoms: At their worst the symptoms were moderate in the emergency department the symptoms are unchanged. The patient has not experienced similar symptoms in the past. The patient has not recently seen a physician. Historical: - Allergies: 02:39 Tylenol-Codeine #3; sm5 - PMHx: 02:39 hiatal hernia; Diverticulitis; Hypercholesterolemia; sm5 - PSHx: 02:39 Appendectomy; Cholecystectomy; sm5 - Immunization history:: Client reports receiving the 2nd dose of the Covid vaccine. - Social history:: Smoking status: Patient denies any tobacco usage or history of. Patient/guardian denies using alcohol. - Family history:: not pertinent. - Hospitalizations: : No recent hospitalization is reported. ROS: 02:35 Constitutional: Negative for fever, chills, and weight loss, Eyes: Negative for injury, rn pain, redness, and discharge, Neck: Negative for injury, pain, and swelling, Cardiovascular: Negative for palpitations, and edema, Respiratory: Negative for shortness of breath, cough, wheezing, and pleuritic chest pain, Abdomen/GI: + abd pain/nausea/vomiting/diarrhea Back: Negative for injury and pain, MS/Extremity: Negative for injury and deformity, Skin: Negative for injury, rash, and discoloration, Neuro: Negative for headache, weakness, numbness, tingling, and seizure. Exam: 02:35 Constitutional: This is a well developed, well nourished patient who is awake, alert, rn and in no acute distress. Ambulatory to room without difficulty Head/Face: Normocephalic, atraumatic. Eyes: Periorbital areas with no swelling, redness, or edema. Cardiovascular: Tachycardic, regular Respiratory: Speaking full sentences, unlabored. No increased work of breathing, no retractions or nasal flaring. Abdomen/GI: soft, mild tenderness in all 4 quadrants, no focal tenderness, no masses, non-distended Skin: Warm, dry MS/ Extremity: Pulses equal, no cyanosis. Neuro: Awake and alert, GCS 15, oriented to person, place, time, and situation. Cranial nerves II-XII grossly intact. Motor strength 5/5 in all extremities. Sensory grossly intact. Cerebellar exam normal. Normal gait. Vital Signs: 02:37 BP 113 / 82; Pulse 101; Resp 17; Temp 98.6(O); Pulse Ox 97% on R/A; Weight 70.31 kg; 5 Height 5 ft. 4 in. (162.56 cm); Pain 7/10; 03:35 BP 109 / 45; Pulse 97; Resp 21; Pulse Ox 100% ; 5 04:40 BP 120 / 58; Pulse 92; Resp 15; Pulse Ox 98% on R/A; 5 05:27 BP 122 / 55; Pulse 92; Resp 17; Pulse Ox 98% on R/A; 5 02:37 Body Mass Index 26.61 (70.31 kg, 162.56 cm) [facility] MDM: 02:15 Patient medically screened. rn 05:16 Differential diagnosis: Nonspecific abd pain, gastritis, pancreatitis, diverticulitis, rn viral gastroenteritis, gastroenteritis. Data reviewed: vital signs, nurses notes, lab test result(s), radiologic studies, CT scan, and as a result, I will discharge patient. Counseling: I had a detailed discussion with the patient and/or guardian regarding: the historical points, exam findings, and any diagnostic results supporting the discharge/admit diagnosis, lab results, radiology results, the need for outpatient follow up, to return to the emergency department if symptoms worsen or persist or if there are any questions or concerns that arise at home. Response to treatment: the patient's symptoms have markedly improved after treatment, and as a result, I will discharge patient. Special discussion: Based on the patient's Hx, exam, and Dx evaluation, there is no indication for emergent surgery or inpatient Tx. It is understood by the patient/guardian that if the Sx's persist or worsen they need to return immediately for re-evaluation. I discussed with the patient/guardian in detail that at this point there is no indication for admission to the hospital. It is understood, however, that if the symptoms persist or worsen the patient needs to return immediately for re-evaluation. Based on the history and exam findings, there is no indication for further emergent testing or inpatient evaluation. I discussed with the patient/guardian the need to see the primary care provider for further evaluation of the symptoms. 12/02 02:23 Order name: CBC with Diff; Complete Time: 04: rn 12/02 02:23 Order name: CMP; Complete Time: : rn 12/02 02:23 Order name: Lipase; Complete Time: : rn 12/02 02:23 Order name: Troponin High Sensitivity; Complete Time: 04: rn 12/02 02:23 Order name: SARS-COV-2 RT PCR (Document "Date of Onset" if Symptomatic); Complete Time: rn 12/02 02:23 Order name: CT Abd/Pelvis - IV Contrast Only rn 12/02 02:23 Order name: IV Saline Lock; Complete Time: 02:42 rn 12/02 02:23 Order name: EKG; Complete Time: 02:24 rn 12/02 02:23 Order name: Flu; Complete Time: 04: rn 12/02 02:58 Order name: Manual Differential; Complete Time: 04:28 EDMS 12/02 02:23 Order name: Labs collected and sent; Complete Time: 02:42 rn 12/02 02:23 Order name: Urine Dipstick-Ancillary (obtain specimen) rn 12/02 02:23 Order name: EKG - Nurse/Tech; Complete Time: 02:41 rn 12/02 02:23 Order name: Cardiac monitoring; Complete Time: 02:49 rn 12/02 02:23 Order name: O2 Sat Monitoring; Complete Time: 02:41 rn Administered Medications: 02:49 Drug: Pepcid (famotidine) 20 mg Route: IVP; Site: right antecubital; sm5 03:32 Follow up: Response: No adverse reaction sm5 02:49 Drug: NS 0.9% 1000 ml Route: IV; Rate: 1000 ml; Site: right antecubital; 5 05:28 Follow up: IV Status: Completed infusion; IV Intake: 1000ml 5 02:50 Drug: Zofran (Ondansetron) 4 mg Route: IVP; Site: right antecubital; 5 03:32 Follow up: Response: No adverse reaction 5 Disposition Summary: 12/02/21 05:20 Discharge Ordered Location: Home rn Problem: new rn Symptoms: have improved rn Condition: Stable rn Diagnosis - Nausea with vomiting, unspecified rn - Infectious gastroenteritis and colitis, unspecified rn Followup: rn - With: Private Physician - When: As needed - Reason: Recheck today's complaints, Re-evaluation by your physician Discharge Instructions: - Discharge Summary Sheet rn - Nausea and Vomiting, Adult rn - Viral Gastroenteritis, Adult rn Forms: - Medication Reconciliation Form rn - Thank You Letter rn - Antibiotic varnish finisher - Prescription Opioid Use rn Prescriptions: - ondansetron 4 mg Oral tablet,disintegrating - take 1 tablet by ORAL route every 6-8 hours As needed; 10 tablet; Refills: 0, rn Product Selection Permitted Signatures: Dispatcher [employer] Erick Hensley MD MD rn Mazur, Sarah, RN RN [facility]
--- NOTE | 2021-12-02 05:21 | ER ---
Nurse's Notes [facility] Name: Jennifer Cisneros Age: 66 yrs Sex: Female : 1955 Arrival Date: 12/02/2021 Time: 02:13 Bed 20 Private MD: Diagnosis: Nausea with vomiting, unspecified;Infectious gastroenteritis and colitis, unspecified Presentation: 12/02 02:37 Chief complaint: Patient states: started having nausea and vomited about 5 times, then sm5 started having chest pain. Coronavirus screen: Vaccine status: Patient reports receiving the 2nd dose of the covid vaccine. Ebola Screen: No symptoms or risks identified at this time. Initial Sepsis Screen: Does the patient meet any 2 criteria? HR > 90 bpm. No. Patient's initial sepsis screen is negative. Does the patient have a suspected source of infection? Yes: Acute abdominal pain. Risk Assessment: Do you want to hurt yourself or someone else? Patient reports no desire to harm self or others. Onset of symptoms was December 02, 2021. 02:37 Method Of Arrival: Ambulatory [facility] 02:37 Acuity: RITESH 3 5 Triage Assessment: 02:40 General: Appears in no apparent distress. Behavior is cooperative. Pain: Complains of 5 pain in abdomen diffusely. Neuro: No deficits noted. Bhandari Agitation-Sedation Scale (RASS): 0 - Alert and Calm Level of Consciousness is awake, alert, obeys commands, Oriented to person, place, time, situation. Cardiovascular: No deficits noted. Capillary refill < 3 seconds Patient's skin is warm and dry. Rhythm is sinus rhythm. Respiratory: No deficits noted. Airway is patent Trachea midline Respiratory effort is even, unlabored. GI: Abdomen is flat, non-distended, Reports nausea, vomiting. Historical: - Allergies: 02:39 Tylenol-Codeine #3; sm5 - PMHx: 02:39 hiatal hernia; Diverticulitis; Hypercholesterolemia; sm5 - PSHx: 02:39 Appendectomy; Cholecystectomy; sm5 - Immunization history:: Client reports receiving the 2nd dose of the Covid vaccine. - Social history:: Smoking status: Patient denies any tobacco usage or history of. Patient/guardian denies using alcohol. - Family history:: not pertinent. - Hospitalizations: : No recent hospitalization is reported. Screenin:41 Abuse screen: Denies threats or abuse. Denies injuries from another. Nutritional sm5 screening: No deficits noted. Tuberculosis screening: No symptoms or risk factors identified. Fall Risk None identified. Assessment: 02:41 GI: Abdomen is flat, non-distended, Bowel sounds present X 4 quads. sm5 04:41 Reassessment: Patient and/or family updated on plan of care and expected duration. Pain sm5 level reassessed. Patient is alert, oriented x 3, equal unlabored respirations, skin warm/dry/pink. 05:26 Reassessment: Patient states feeling better. 5 Vital Signs: 02:37 BP 113 / 82; Pulse 101; Resp 17; Temp 98.6(O); Pulse Ox 97% on R/A; Weight 70.31 kg; sm5 Height 5 ft. 4 in. (162.56 cm); Pain 7/10; 03:35 BP 109 / 45; Pulse 97; Resp 21; Pulse Ox 100% ; sm5 04:40 BP 120 / 58; Pulse 92; Resp 15; Pulse Ox 98% on R/A; sm5 05:27 BP 122 / 55; Pulse 92; Resp 17; Pulse Ox 98% on R/A; sm5 02:37 Body Mass Index 26.61 (70.31 kg, 162.56 cm) 5 ED Course: 02:13 Patient arrived in ED. bp1 02:15 Erick Storey MD is Attending Physician. rn 02:17 Steph Hernandez, PERLA is Primary Nurse. sm5 02:38 Triage completed. sm5 02:40 Arm band placed on right wrist. sm5 02:40 EKG done, by ED staff, reviewed by Erick Stoery MD COVID swab sent to lab. Flu and/or sm5 RSV swab sent to lab. Inserted saline lock: 20 gauge in right antecubital area, using aseptic technique. Blood collected. 02:41 Patient has correct armband on for positive identification. Bed in low position. Call [facility] light in reach. Side rails up X2. 02:42 SARS-COV-2 RT PCR (Document "Date of Onset" if Symptomatic) Sent. sm5 02:42 Flu Sent. sm5 02:42 CBC with Diff Sent. sm5 02:42 CMP Sent. sm5 02:42 Lipase Sent. sm5 03:26 CT Abd/Pelvis - IV Contrast Only In Process Unspecified. EDMS 05:27 No provider procedures requiring assistance completed. IV discontinued, intact, sm5 bleeding controlled, No redness/swelling at site. Pressure dressing applied. Administered Medications: 02:49 Drug: Pepcid (famotidine) 20 mg Route: IVP; Site: right antecubital; sm5 03:32 Follow up: Response: No adverse reaction 5 02:49 Drug: NS 0.9% 1000 ml Route: IV; Rate: 1000 ml; Site: right antecubital; sm5 05:28 Follow up: IV Status: Completed infusion; IV Intake: 1000ml 5 02:50 Drug: Zofran (Ondansetron) 4 mg Route: IVP; Site: right antecubital; sm5 03:32 Follow up: Response: No adverse reaction 5 Medication: 02:41 VIS not applicable for this client. sm5 Intake: 05:28 IV: 1000ml; Total: 1000ml. 5 Outcome: 05:20 Discharge ordered by . rn 05:27 Discharged to home ambulatory. [facility] 05:27 Condition: stable 05:27 Discharge instructions given to patient, Instructed on discharge instructions, follow up and referral plans. medication usage, Demonstrated understanding of instructions, follow-up care, medications, Prescriptions given X 1. 05:28 Patient left the ED. 5 Signatures: Dispatcher [employer] EDMS Erick Storey MD MD rn Paniauga, Brittany bp1 Mazur, Sarah RN RN zurdo
[2021-12-02 05:35] VITALS: TEMP 98.6
[2021-12-02 05:38] VITALS: O2SAT 98
[2021-12-02 05:40] VITALS: BP 122/55
--- NOTE | 2021-12-02 18:11 | RAD REPORT ---
EXAM DESCRIPTION: CT - Abdomen Pelvis W Contrast - 12/02/2021 6:47 am COMPARISON: CT abdomen pelvis October 25, 2020 CLINICAL HISTORY: [facility] MAIN Abdominal pain, acute, nonlocalized TECHNIQUE: CT of the abdomen and pelvis was acquired with IV contrast material. Coronal and sagitt al reconstructions were obtained. Automated exposure control was utilized on this examination as a dose lowering technique. FINDINGS: Lung bases: Right basilar atelectasis. Liver: Normal. Gallbladder and biliary: Cholecystectomy. Biliary ductal dilatation is likely due to reservoir effect . Pancreas: Normal. Spleen: Normal. Adrenal glands: Normal adrenal glands. Kidneys: Normal kidneys Stomach and Small Bowel: Small hiatal hernia. Scattered small bowel wall thickening is present. Urinary bladder: Normal. Uterus and Adnexa: The uterus is absent or atrophic. Colon and Appendix: Mild colonic diverticulosis. No evidence of appendicitis. Retroperitoneum and lymph nodes: Normal. Vascular: Unremarkable. Peritoneal cavity: No ascites or free air. Musculoskeletal and soft tissues: A stimulator is present in the right flank. No aggressive bone lesi ons. No compression fracture. ABDOMEN/PELVIS IMPRESSION: 1. Scattered small bowel wall thickening may indicate mild enteritis. 2. Mild colonic diverticulosis. Electronically signed by: Jose Lopez MD 12/02/2021 5:04 AM CDT Due to temporary technical issues with the PACS/Fluency reporting system, reports are being signed by the in house radiologists without review as a courtesy to insure prompt reporting. The interpreting radiologist is fully responsible for the content of the report.
--- NOTE | 2021-12-03 12:19 | EKG ---
Test Date: 2021-12-02 Test Time: 02:31:22 [place] Roofer: RODRIGUE MEASUREMENT RESULTS: Intervals: Rate: 98 MN: 160 QRSD: 94 QT: 338 QTc: 431 [place]: P: 64 MN: 160 QRS: 22 T: -5 INTERPRETIVE STATEMENTS: Normal sinus rhythm Possible Left atrial enlargement Marked ST abnormality, possible anterior subendocardial injury Abnormal ECG Compared to ECG 02/16/2000 16:00:00 ST (T wave) deviation now present T-wave abnormality no longer present Electronically Signed On 12-03-21 12:16:47 CDT by Abdullahi Duval
== END 2021-12-02 05:28 | disposition home or self-care (01) ==
LOC: ER 02:09
DX: A09 Infectious gastroenteritis and colitis, unspecified (principal); Z20.822 Contact with and (suspected) exposure to COVID-19; Z88.5 Allergy status to narcotic agent
CPT/HCPCS: 96361; 93005; 85025; 36415; 84484; 83690; 80053; 87804 ×2; 74177; 96375; 96374; 99284; U0003; Q9967; J7030; J2405; J3490

== ENCOUNTER 2022-03-25 07:52 | Day surgery (SDC) | payer OTHER ==
[2022-03-20 16:06] LABS: SARS-CoV-2 Antigen Rapid Res Negative (Negative)
[2022-03-25] MEDS ORDERED: Ringers Lactate 1,000 ML IV ONE (08:06)
[2022-03-25] MEDS ORDERED: BUPIVACAINE 0.25% PF 10 ML VIAL ONE (09:41)
[2022-03-25] MEDS ORDERED: FENTANYL CITR 100 MCG/2 ML ONE (09:56)
[2022-03-25] MEDS ORDERED: propofoL 200 MG/20 ML VIAL IV ONE (09:56)
[2022-03-25] MEDS ORDERED: ROCURONIUM 50 MG/5 ML VIAL IV ONE (09:57)
[2022-03-25] MEDS ORDERED: MIDAZOLAM HCL 2 MG/2 ML INJ ONE (09:57)
[2022-03-25] MEDS ORDERED: ONDANSETRON 4 MG/2 ML VIAL ONE ×2 (09:57→12:27)
[2022-03-25] MEDS ORDERED: LIDOCAINE 1% MPF 5 ML VIAL ONE (09:58)
[2022-03-25] MEDS ORDERED: CEFAZOLIN SODIUM 1 GM/VIAL ONE (11:01)
[2022-03-25] MEDS ORDERED: KETOROLAC 30 MG/ML INJ ONE (11:52)
[2022-03-25] MEDS ORDERED: DICYCLOMINE HCL 10 MG CAP PO PRN (12:05)
[2022-03-25] MEDS ORDERED: IBUPROFEN 200 MG TAB PO PRN (12:06)
[2022-03-25] MEDS ORDERED: PROMETHAZINE INJ 25 MG/ML AMP IV PRN (12:06)
[2022-03-25] MEDS ORDERED: HYDROCODONE/APAP 5/325 MG TAB PO PRN (12:06)
--- NOTE | 2022-03-25 12:11 | P.BOP ---
Preoperative diagnosis: retained interstim quadripolar tined lead and battery>10yr Postoperative diagnosis: same and scarred Primary procedure: removal of battery adn the tined lead with lysis of adhesions Principal Bioinformatics Specialist: NONE,NONE Estimated blood loss: min Specimen: lead and battery Findings: scarred lead,fractured above tines,entire lead released/removed completely Anesthesia: General Complications: None Transferred to: Recovery Room Condition: Good
[2022-03-25] MEDS ORDERED: HOME MED 1 EA UNK (Estradiol [Estrace] 42.5 GM Cream.Appl) VG SCH (12:15)
[2022-03-25] MEDS: HYDROMORPHONE HCL 1 MG/ML INJ ONE ×2 (12:20→12:25)
[2022-03-25 13:02] VITALS: BP 132/67; TEMP 96.9; O2SAT 99
[2022-03-25] MEDS ORDERED: HYDROCODONE/APAP 5/325 MG TAB ONE (13:23)
[2022-03-26] MEDS ORDERED: IRON PO SCH (09:00)
[2022-03-26] MEDS ORDERED: FOLIC PO SCH (09:00)
[2022-03-26] MEDS ORDERED: MULTIVIT MIN PO SCH (09:00)
[2022-03-26] MEDS ORDERED: VITAMIN D 5,000 UNIT CAP PO SCH (09:00)
[2022-03-26] MEDS ORDERED: HOME MED 1 EA UNK (Simvastatin [Simvastatin] 40 MG Tablet) PO SCH (09:00)
[2022-03-26] MEDS ORDERED: PUMP NS SCH (09:00)
[2022-03-26] MEDS ORDERED: HOME MED 1 EA UNK (Linaclotide [Linzess] 290 MCG Capsule) PO SCH (09:00)
[2022-03-26] MEDS ORDERED: CYANOCOBALAMIN 1,000 MCG TAB PO SCH (09:00)
[2022-03-26] MEDS ORDERED: PARoxetine HCL 10 MG TAB PO SCH (09:00)
[2022-03-26] MEDS ORDERED: [UNRECOGNIZED DRUG - OTHER] PO SCH (09:00)
[2022-03-26] MEDS ORDERED: AZELASTINE HCL 205.5 MCG/0.137 ML NS SCH (09:00)
[2022-03-26] MEDS ORDERED: LUBIPROSTONE 24 MCG CAP PO SCH (09:00)
[2022-03-26] MEDS ORDERED: PANTOPRAZOLE 40MG TABLET PO SCH (09:00)
[2022-03-26] MEDS ORDERED: HOME MED 1 EA UNK (Cranberry [Cranberry] 500 MG Capsule) PO SCH (09:00)
--- NOTE | 2022-03-26 14:52 | OP ---
Date of Procedure: 03/25/2022 Surgeon: Dorie Campbell MD Embossograph Operator: No administrative support assistant. Preoperative Diagnosis: Uterine . Postoperative Diagnosis: Uterine . Procedures Performed: Removal of the with lysis of adhesions and . Estimated Blood Loss: Minimal. Specimens: . Findings: . Anesthesia: General endotracheal . The patient was counseled possibility of relief. Then, the back was prepped and draped in a sterile fashion and on the right buttock . After lidocaine was . Once the bladder was palpated . Incision was made about 3 cm over the old scar near the __ and then pulled out for permanent pathology and closure with 3-0 chrom ic midline and 2 on the and 4-0 Monocryl was used to close in the subcuticular . The patient was recovered from anesthesia and taken to PACU in stable condition __. ANNA/HAILEE Voice ID: [id number] Report ID: [id number]
== END 2022-03-25 13:50 | disposition home or self-care (01) ==
LOC: OR 07:52
PROVIDERS: ATTEND Obstetrics & Gynecology
PROC: 01PY0MZ Removal of Neurostimulator Lead from Peripheral Nerve, Open Approach (ICD-10-PCS; principal; 2022-03-25 09:30)
DX: N32.81 Overactive bladder (principal); N39.46 Mixed incontinence; K59.00 Constipation, unspecified; M54.50 Low back pain, unspecified; R58 Hemorrhage, not elsewhere classified; Z20.822 Contact with and (suspected) exposure to COVID-19; Z96.82 Presence of neurostimulator
CPT/HCPCS: 36415; 88300; 87811; 64585; J2704; J2001; J2250; J3010; J1170; J7120; J2405 ×2; J0690

== ENCOUNTER 2023-05-21 11:26 | Emergency (ER) | payer OTHER ==
--- OUTSIDE RECORDS SUMMARY | 2023-05-21 11:33 | XMS REPORT | Continuity of Care Document ---
:1955 Author Organization [facility] t Address [address] [place] [address] Care Team Providers Name Role Phone Debra Patino Sandra Attending Clinician Unavailable [email or web address] Attending Clinician Unavailable MOIRA Attending Clinician Unavailable Lewis Garcia Attending Clinician Unavailable VISIT, NURSE [facility] DOPPLER Attending Clinician Unavailable VISIT, NURSE [facility] MAMMO Attending Clinician Unavailable Erika Prado Attending Clinician Rodolfo Maynard Attending Clinician Adam Conway Sr Attending Clinician Eric Bedoya Attending Clinician Naren Carreno Attending Clinician [email or web address] Admitting Clinician Unavailable MOIRA Admitting Clinician Unavailable Bhakti Kern Admitting Clinician Unavailable Rodolfo Maynard Admitting Clinician Payers Payer Name Policy Type Policy Number Effective Date Expiration Date S [facility] [id number] (MEDICARE REPLACEMENT/ADVANT AGE - PPO) [facility] HealthSelect 1 [id number] 2021 Common TRS/ERS MCR PPO 00:00:00 [facility] Problems Condition Condition Condition Status Onset Resolution Last Treating Co mments Source Name Details Category Date Date Treatment Clinician Date GERD GERD Diagnosis Active 2016-08-07 Mem oria Active 07-11 09:15:00 l 07/11/2016 00:00: Sathya wang [address] BDDC-GERD BDDC-GERD Diagnosis Active 2016-04-14 Memoria Active 02-25 07:34:00 l 02/26/2016 00:00: Sathya wang [address] NAUESA/ NAUESA/ Diagnosis Active 2015-07-22 Memoria Active 07-22 15:55:00 l 07/22/2015 00:00: Sathya wang [place] [address] 789.06// 789.06// Diagnosis Active 2015-02-05 Memoria GASTRIC GASTRIC 01-30 10:26:00 l EMPTYING EMPTYING 00:00: Sathya wang STUDY STUDY 00 Active 01/30/2015 [place] Bladder Bladder Problem Active 2018-11-16 Me moria muscle muscle 10-27 13:09:54 l dysfunctio dysfunctio 00:00: Philip desouza n - n - 00 overactive overactive (disorder) (disorder) Active 10/27/2014 Problem 11/16/2018 Data migrated from [employer] on 01/10/15. Medical Group,[facility] [place] Asthma Asthma Problem Active 2018-11-16 Christian rj (disorder) (disorder) 07-31 13:09:54 l Active 00:00: Tony 07/31/2014 00 Problem 11/16/2018 Data migrated from [employer] on 12/02/14. [facility] [place] Disorder Disorder Problem Active 2015-07-25 Memoria of nasal of nasal 07-31 01:35:59 l cavity cavity 00:00: Tony (disorder) (disorder) 00 Active 07/31/2014 Problem 07/25/2015 Data migrated from [employer] on 12/02/14. [place] Epigastric Problem Active 2013-072015-07-25 M emoria pain Epigastric 2-17 01:35:59 l (finding) pain 00:00: [place] (finding) 00 Active 06/21/2014 Problem 07/25/2015 Data migrated from [employer] [place] on 12/02/14. [place] Loss of Loss of Problem Active 2013-072015-07-25 morifátima appetite appetite 2-17 01:35:59 l (finding) (finding) 00:00: Du costello Active 00 06/21/2014 Problem 07/25/2015 Data migrated from [facility] [facility] [place] on 12/02/14. [place] Contusion Contusion Problem Active 2013-072015-07-25 Memoria of knee of knee - 01:35:59 l (disorder) (disorder) 00:00: He rmann Active 00 05/25/2014 Problem 07/25/2015 Data migrated from [employer] on 12/02/14. [place] Chronic Chronic Problem Active 2013-072018-11-16 Me moria constipati constipati - 13:09:54 l on on 00:00: [place] (disorder) (disorder) 00 Active 05/19/2014 Problem 11/16/2018 Data migrated from [employer] on 12/02/14. Medical Group,[facility] [place] Past Past Problem Active 2015-07-25 Memor ia history of history of 02-24 01:35:59 l clinical clinical 00:00: Sathya awng finding finding 00 (context-d (context-d ependent ependent category) category) Active 02/24/2014 Problem 07/25/2015 Data migrated from [employer] on 12/02/14. [place] Derangemen Derangeme Problem Active 2015-07-25 Memoria t of knee nt of knee - 01:35:59 l (disorder) (disorder) 00:00: He rmann Active 00 12/09/2013 Problem 07/25/2015 Data migrated from [employer] on 12/02/14. [place] Benign Benign Problem Active 2018-11-16 Christian rj essential essential 11-24 13:09:54 l hypertensi hypertensi 00:00: He rmann on on 00 (disorder) (disorder) Active 11/24/2013 Problem 11/16/2018 Data migrated from [employer] on 12/02/14. Medical Group,[facility], [place] Long-term Long-term Problem Active 2015-07-25 Memoria drug drug 11-24 01:35:59 l therapy therapy 00:00: Tony (procedure (procedure 00 ) ) Active 11/24/2013 Problem 07/25/2015 Data migrated from [employer] on 12/02/14. [place] Disorder Disorder Problem Active 2015-07-25 Memoria of of 08-05 01:35:59 l refraction refraction 00:00: He rmann AND/OR AND/OR 00 accommodat accommodat ion ion (disorder) (disorder) Active 08/05/2013 Problem 07/25/2015 Data migrated from [facility] [place] on 12/02/14. [place] Subjective Subjectiv Problem Active 2015-07-25 Memoria visual e visual 08-05 01:35:59 l disturbanc disturbanc 00:00: He rmann e e 00 (disorder) (disorder) Active 08/05/2013 Problem 07/25/2015 Data migrated from [employer] on 12/02/14. [place] Joint pain Joint Problem Active 2012-072015-07-25 M emoria (finding) pain 07-30 01:35:59 l (finding) 00:00: Tony Active 00 05/30/2013 Problem 07/25/2015 Data migrated from [employer] on 12/02/14. [place] Muscle Muscle Problem Active 2012-072015-07-25 Christian rj pain pain 07-30 01:35:59 l (finding) (finding) 00:00: Herm pravin Active 00 05/30/2013 Problem 07/25/2015 Data migrated from [employer] on 12/02/14. [place] Palpitatio Palpitati Problem Active 2012-072018-11-16 Memoria ns ons 07-06 13:09:54 l (finding) (finding) 00:00: Herm pravin Active 00 05/06/2013 Problem 11/16/2018 Data migrated from [employer] on 12/02/14. Medical Group,[facility], [place] Fibromyosi Fibromyos Problem Active 2018-11-16 Memoria tis itis 7-19 13:09:54 l (disorder) (disorder) 00:00: He rmann Active 00 01/21/2013 Problem 11/16/2018 Data migrated from [employer] on 12/02/14. Medical Group,[facility], [place] Menopausal Problem Active 2015-07-25 M christine syndrome Menopausal 7- 01:35:59 l (disorder) syndrome 00:00: Herm pravin (disorder) 00 Active 01/04/2013 Problem 07/25/2015 Data migrated from [employer] on 12/02/14. [place] [id number] Pain in Problem Comm on [id number] Spirit shoulder - [facility] [id number] Chronic Problem Common fatigue [facility] [id number] Difficulty Problem Co mmon sleeping [facility] [id number] Gastroesop Problem Co mmon hageal Spirit reflux - [facility] disease [facility] esophagiti [facility] [id number] Cervicalgi Problem Com mon a [facility] [id number] Menopause Problem Com mon [facility] [id number] Left Problem Common sciatic Spirit nerve pain - [facility] [id number] Dry eyes Problem Comm on [facility] [id number] Hyperlipid Problem Co mmon emia, Spirit mixed [facility] [id number] Other Problem Common hammer Spirit toe(s) - [facility] (acquired) , right [facility] [id number] Other Problem Common hammer Spirit toe(s) - [facility] (acquired) [facility] left [facility] [id number] Irritable Problem Com mon bowel Spirit syndrome - [facility] with constipati [facility] [id number] DDD Problem Common (degenerat Spirit fish disc - [facility]I disease), lumbosacra [facility] [id number] Hot Problem Common flashes [facility] [id number] Bladder Problem Common disorder [facility] [id number] Overweight Problem Co mmon [facility] [id number] Polyarthra Problem Com mon lgia [facility] [id number] Allergic Problem Commo n rhinitis, Spirit unspecifie - [facility]I d seasonalit [facility], Medical unspecifie Center d trigger [id number] Fibromyalg Problem Co mmon ia Spirit - [facility] [id number] Constipati Problem Com mon on, Spirit unspecifie - [facility] d constipati [facility] on [facility] Hiatal Hiatal Problem Common hernia hernia Spirit - [facility] Chronic Other Problem Common pain chronic [facility] pain - [facility] [id number] Varicose Problem Commo n veins of Spirit both lower - CHI extremitie St s with [facility] Hyperlipid Hyperlipid Problem C ommon aemia emia, Spirit unspecifie - CHI d St hyperlipid [facility] emia [facility] [id number] PAD Problem Common (periphera Spirit l artery - [facility]I disease) [facility] Family Family Problem Active 2018-11-16 Mem oria history of history of 13:09:54 l malignant malignant Herm pravin neoplasm neoplasm of breast of breast (situation (situation ) ) Active Problem 11/16/2018 Medical Group Family Family Problem Active 2018-11-16 Christian rj history of history of 13:09:54 l malignant malignant Herm pravin neoplasm neoplasm of ovary of ovary (situation (situation ) ) Active Problem 11/16/2018 Medical Group Gastroesop Problem Active 2018-11-16 M emoria hageal Gastroesop 13:09:54 l reflux hageal [place] disease reflux (disorder) disease (disorder) Active Problem 11/16/2018 [facility] 01/19/15. Medical Group,[facility] Myopia Myopia Problem Active 2018-11-16 Christian rj (disorder) (disorder) 13:09:54 l Active Tony Problem 11/16/2018 [facility] Tear film Tear film Problem Active 2018-11-16 Memoria insufficie insufficie 13:09:54 l ncy ncy Tony (disorder) (disorder) Active Problem 11/16/2018 Medical Group Hypertensi Hypertens Problem Active 2016-08-08 Memoria ve fish 01:33:06 l disorder, disorder, Herm pravin systemic systemic arterial arterial (disorder) (disorder) Active Problem 08/08/2016 [facility] [place] ABDMNAL ABDMNAL Diagnosis Active 2015-02-05 Memoria PAIN PAIN 10:26:00 l EPIGASTRIC EPIGASTRIC He rmann Active [place] ILLNESS, ILLNESS, Diagnosis Active 2016-08-07 Memoria UNSPECIFIE UNSPECIFIE 09:15:00 l D D Active [place] [facility] Colonoscop [place] Problem Resolve 2015-07-25 Memoria y py d 01:35:59 l (procedure (procedure He rmann ) ) Resolved Problem 07/25/2015 Data migrated from [facility] on 01/19/15. [place] Essential Essential Problem Active 2017-07-24 Memoria (primary) (primary) 03:00:23 l hypertensi hypertensi He rmann on on Active Problem 07/24/2017 [facility] Hiatal Hiatal Problem Active 2017-07-24 Christian rj hernia hernia 03:00:23 l Active [place] Problem 07/24/2017 [facility] Hyperlipid Hyperlipi Problem Active 2017-07-24 Memoria emia demia 03:00:23 l Active [place] Problem 07/24/2017 [facility] IBS IBS Diagnosis Active 2016-01-19 Mem oria (irritable (irritable 02:07:49 l bowel bowel Tony syndrome) syndrome) Active Diagnosis 01/19/2016 [facility] Leg pain Leg pain Diagnosis Active 2016-01-19 Memoria Active 02:07:49 l Diagnosis [place] 01/19/2016 [facility] Preventati Preventat Diagnosis Active 2016-02-06 Memoria ve health fish health 02:15:02 l care care [place] Active Diagnosis 02/06/2016 [facility] Anxiety Anxiety Problem Active 2018-11-16 Me moria disorder disorder 13:09:54 l (disorder) (disorder) He rmann Active Problem 11/16/2018 [facility] 12/02/14. 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 Medical Group,[facility], [place] Tear of Tear of Problem Resolve 2014-0 2018-11-16 2018-11-16 Memoria medial medial d 11-24 13:09:54 13:09:54 l meniscus meniscus 00:00: Sathya n of knee of knee 00 (disorder) (disorder) Resolved 11/24/2013 Problem 11/16/2018 Data migrated from [employer] on 12/02/14. Medical Group,[facility], [place] Sinusitis Sinusitis Problem Resolve 2015-07-25 2015-07-25 Memoria (disorder) (disorder) d 07-18 01:35:59 01:35:59 l Resolved 00:00: [place] 07/18/2013 00 Problem 07/25/2015 Data migrated from [employer] on 01/20/15.<b r/>Data migrated from [employer] on 01/19/15. [place] History of Past Illness Condition Condition Condition Status Onset Resolution Last Treating Co mments Source Name Details Category Date Date Treatment Clinician Date Family Family Problem 2018-02-17 2018-02-17 Memoria history of history of 10-12 19:13:22 19:13:22 l malignant malignant 15:48: Herm pravin neoplasm neoplasm 00 of ovary of ovary 10/12/2017 02/17/2018 Medical Group Family Family Problem 2018-02-17 2018-02-17 Memoria history of history of 10-12 19:13:22 19:13:22 l malignant malignant 15:48: Herm pravin neoplasm neoplasm 00 of breast of breast 10/12/2017 8 Medical Group Encounter Encounter Problem 2018-02-17 2018-02-17 Memoria for for 10-12 19:13:22 19:13:22 l gynecologi gynecologi 15:48: He rmann chele chele 00 examinatio examinatio n n (general) (general) (routine) (routine) without without abnormal abnormal findings findings 10/12/2017 02/17/2018 Medical Group Discharge Discharge Problem 2015-07-25 2015-07-25 Memoria Diagnosis: Diagnosis: 1- 01:35:59 01:35:59 l Dizziness Dizziness 06:00: Herm pravin 07/22/2015 00 07/25/2015 [place] Discharge Discharge Problem 2015-07-25 2015-07-25 Memoria Diagnosis: Diagnosis: 07-22 01:35:59 01:35:59 l Nausea Nausea 06:00: [place] 07/22/201507/25/2015 [facility] [place] Allergies, Adverse Reactions, Alerts Allergy Allergy Status Severity Reaction(s) Onset Inactive Treating Comm ents Source Name Type Date Date Clinician No Known DA Active U 2020-07 [facility] Allergie 2-13 [place] s 00:00: d 00 [facility] NAgatha Riddle Active Info Not Christian rj Available 02-03 l 00:00: [place] 00 No Known No Known Active Memori a Medicati Medicati l on on Tony Allergie Allergie s s Social History Social Habit Start Date Stop Date Quantity Comments Source History of Tobacco Common Spirit - Use [facility] Sex Assigned At Common Sp rigoberto - [facility] Recreationaldrugs: 2016-09-05 2016-09-05 Rafaela al Tony 00:00:00 00:00:00 Social History 2015-08-02 2015-08-02 [facility] 19:40:35 19:40:35 Smoking Status Start Date Stop Date Source Former Smoker 2022-04-11 00:00:00 2022-04-11 00:00:00 [facility] pirit - [facility] Medications Ordered Filled Start Stop Current Ordering Indication Dosage Frequency Signature Comments Components Source Medication Medication Date Date Medication? Clinician (SIG) Name Name Cipro 500 Cipro 500 2021- No 1{table BID Cipro 500 MG MG 12-12 t} MG 00:00: 00:00 00 :00 metroNIDAZO metroNIDAZO 2021- No 1{table TID metroNIDAZ LE 500 MG LE 500 MG 12-12 t} OLE 500 MG 00:00: 00:00 00 :00 Cipro 500 Cipro 500 2021- No 1{table BID Cipro 500 MG MG 12-12 t} MG 00:00: 00:00 00 :00 metroNIDAZO metroNIDAZO 2021- No 1{table TID metroNIDAZ LE 500 MG LE 500 MG 12-12 t} OLE 500 MG 00:00: 00:00 00 :00 [place] Kenalog 2019-1 No 40mg Common (Triamcinol (Triamcinol 1-18 S pirit one) one) 00:00: - [facility]I 00 [facility] [place] Kenalog 2019-1 No 40mg Common (Triamcinol (Triamcinol 1-18 S pirit one) one) 00:00: - [facility] 00 [facility] [place] Kenalog 2019-1 No 40mg Common (Triamcinol (Triamcinol 1-18 S pirit one) one) 00:00: - [facility]I 00 [facility] [place] Kenalog 2019-1 No 40mg Common (Triamcinol (Triamcinol 1-18 S pirit one) one) 00:00: - [facility]I 00 [facility] [place] 2019-1 No 40mg Common (Triamcinol (Triamcinol 1-18 S pirit one) one) 00:00: - [facility]I 00 [facility] [place] Kenalog 2019-1 No 40mg Common (Triamcinol (Triamcinol 1-18 S pirit one) one) 00:00: - [facility]I 00 [facility] [place] Kenalog 2019-0 No 40mg Common (Triamcinol (Triamcinol 7-25 S pirit one) one) 00:00: - [facility]I 00 [facility] Dexamethaso Dexamethaso 2019-0 No 10mg Common ne ne 7-25 Spirit 00:00: - [facility]I 00 [facility] [place] Kenalog 2019-0 No 40mg Common (Triamcinol (Triamcinol 7-25 S pirit one) one) 00:00: - [facility]I 00 [facility] Dexamethaso Dexamethaso 2019-0 No 10mg Common ne ne 7-25 Spirit 00:00: - [facility]I 00 [facility] [place] Kenalog 2019-0 No 40mg Common (Triamcinol (Triamcinol 7-25 S pirit one) one) 00:00: - CHI 00 [facility] Dexamethaso Dexamethaso 2019-0 No 10mg Common ne ne 7-25 Spirit 00:00: - [facility]I 00 [facility] [place] Kenalog 2019-0 No 40mg Common (Triamcinol (Triamcinol 7-25 S pirit one) one) 00:00: - CHI [facility] Dexamethaso Dexamethaso 2019-0 No 10mg Common ne ne 7-25 Spirit 00:00: - CHI [facility] Kenalog Kenalog 2019-0 No 40mg Common (Triamcinol (Triamcinol 7-25 S pirit one) one) 00:00: - CHI 00 [facility] Dexamethaso Dexamethaso 2019-0 No 10mg Common ne ne 7-25 Spirit 00:00: - [facility]I 00 [facility] Kenalog Kenalog 2019-0 No 40mg Common (Triamcinol (Triamcinol 7-25 S pirit one) one) 00:00: - CHI 00 [facility] Dexamethaso Dexamethaso 2019-0 No 10mg Common ne ne 7-25 Spirit 00:00: - [facility] Estradiol 1 2017-07 Yes See Memori a MG Oral 0-24 Instructio l Tablet 14:20: ns, # 90 [place] 25 tab, Refill(s) 1, TAKE 1 TABLET BY MOUTH EVERY DAY, Pharmacy: [id number] Estradiol 1 2017-07 No See Memori a MG Oral 0-24 Instructio l Tablet 14:01: ns, # 90 [place] 54 tab, Refill(s) 1, TAKE 1 TABLET BY MOUTH EVERY DAY, Pharmacy: [id number] Estradiol 1 Yes See Memori a MG Oral 3-26 Instructio l Tablet 19:03: ns, # 90 Tony 33 tab, Refill(s) 1, TAKE 1 TABLET BY MOUTH EVERY DAY, Pharmacy: [id number] Zofran Yes Nasir 2 tablets Christian rj 1-18 Kyle l 00:00: Tony 00 Simvastatin 2017- Yes Nasir 1 tablet Memoria 2-27 Kyle in the l 03:00: evening Tony 07 Linzess 2016-07 Yes Nasir 1 capsule Mem oria 2-09 Kyle l 03:00: Tony 25 Simvastatin 2017-0 Yes Nasir 1 tablet Memoria 6-21 Kyle in the l 02:00: evening Tony 11 Zithromax Yes Nasir 2 tablets M emoria Z-Chidi 4-24 Kyle on the l 00:00: first day, then 1 tablet daily for 4 days Linzess Yes Nasir 1 capsule Mem oria 4-19 Kyle l 02:00: Cipro Yes Nasir 1 tablet Memori a 3-31 Kyle l 00:00: Symbicort Yes Nasir 2 puffs Mem oria 3-07 Kyle l 00:00: influenza No Notes: Memori a virus 08-05 (Same as: l vaccine, 19:00: Fluzone Sathya n inactivated 00 Quadrivale nt, Fluarix Quadrivale nt) For 3 years of age and older (0.5 mL IM) Shake well before use tramadol Yes 50 mg = 1 Christian rj hydrochlori 08-05 tab, PO, l de 50 MG 15:02: Q4H, X 3 Steph nn Oral Tablet 41 day, # 18 tab, 0 Refill(s) Ondansetron Yes 4 mg = 1 Me moria 4 MG 08-05 tab, PO, l Disintegrat 15:02: BID, PRN He rmann ing Tablet 38 Nausea and [Zofran] Vomiting, Dissolve tab under tongue, X 5 day, # 10 tab, 0 Refill(s) Tylenol Yes 10 ml, PO, Christian rj with 08-05 Q6H, PRN l Codeine 120 15:02: Pain, X 7 H ermann mg-12 mg/5 34 day, # 280 mL oral mL, 0 liquid Refill(s) metoprolol No Notes: Memor ia extended 08-05 (Same as: l release 15:00: Toprol XL) pravin Do Not Crush Ondansetron No 4 mg = 1 Me moria 4 MG 08-05 tab, PO, l Disintegrat 13:37: BID, PRN He rmann ing Tablet 00 Nausea and [Zofran] Vomiting, Dissolve tab under tongue, X 5 day, # 10 tab, 0 Refill(s) Tylenol No 10 ml, PO, Christian rj with 1-31 Q6H, PRN l Codeine 120 13:37: Pain, X 7 H ermann mg-12 mg/5 00 day, # 280 mL oral mL, 0 liquid Refill(s) tramadol No 50 mg = 1 Christian rj hydrochlori 31 tab, PO, l de 50 MG 13:37: Q4H, X 3 Steph nn Oral Tablet 00 day, # 18 tab, 0 Refill(s) Enoxaparin No Notes: Memor ia 08-05 (Same as: l 08:40: Lovenox) [place] Ondansetron No Notes: Christian rj 08-05 (Same as: l 00:00: Zofran) Tony MEDICATION WASTE Product Size: 4 mg Product Wasted: ___ mg Ketorolac No 4 days Memor ia 08-05 l 00:00: MEDICATION [place] WASTE Product Size: 30 mg Product Wasted: ___ mg Ofirmev No Notes: Memoria 08-05 Infuse l 00:00: over 15 [place] 00 minutes Do not exceed 4gm/day of acetaminop hen MEDICATION WASTE Product Size: 1000 mg Product Wasted: ___ mg Symbicort No Notes: Memori a 160/4.5 08-04 (Same as: l inhalation 23:00: Symbicort) H ermann aerosol 00 WASTE: with Aerosol - adapter Return to Pharmacy gabapentin No Notes: Memor ia 08-04 (Same as: l 22:00: Neurontin) Ondansetron No Notes: Christian rj 08-04 (Same as: l 20:52: Zofran) Tony MEDICATION WASTE Product Size: 4 mg Product Wasted: ___ mg Naloxone No Notes: Memoria 08-04 Same as l 20:52: Narcan Flumazenil No Notes: Memor ia 08-04 (Same as: l 20:52: Romazicon) Hydromorpho No Notes: Christian rj ne 08-04 Same as l 20:52: Dilaudid Metoprolol No Notes: Memor ia -30 (Same as: l 20:52: Lopressor) Push over 2 minutes Tramadol No Notes: Not Mem oria 30 to exceed l 20:39: 400mg/day. (Same As: Ultram) Calcium No 1,000 mL, Memor ia Chloride 08-04 Rate: 125 l 0.0014 20:39: ml/hr, Tony MEQ/ML / 00 Infuse Potassium over: 8 Chloride hr, Route: 0.004 IV, Dosing MEQ/ML / Weight Sodium 57.273 kg, Chloride Total 0.103 Volume: MEQ/ML / 1,000, Sodium Start Lactate date: 0.028 08/04/16 MEQ/ML 14:39:00 Injectable [employer], Solution Duration: 30 day, Stop date: 09/03/16 14:38:00 [employer] Cefazolin No 2 gm, Memoria 30 Route: l 18:21: IVPB, Drug form: INJ, ONCE, Dosing Weight 57.273, kg, Start date: 08/04/16 12:21:00 [employer], Stop date: 08/04/16 12:21:00 [employer] 72 HR No 1.5 mg, 1 Memoria Scopolamine 1-30 patch, l 0.0139 13:39: Route: Tony MG/HR 00 TOP, Transdermal Dosing Patch Weight 57.273, kg, ONCE, Start date: 08/04/16 7:39:00 [employer], Stop date: 08/04/16 7:39:00 [employer] ceFAZolin No Notes: Memori a -30 (Same As: l 11:00: Ancef, Kefzol) MEDICATION WASTE Product Size: 1000 mg Product Wasted: ___ mg Metoprolol Yes Nasir 1 tablet M emoria Succinate 8- Kyle l ER 02:15: Promethazin Yes Nasir 1 tablet Memoria e HCl 8- Kyle as needed l 02:15: Esomeprazol Yes Nasir 1 capsule Memoria e Magnesium 8- Kyle l 02:15: Estradiol Yes Nasir 1 tablet Me moria 02-05 Kyle l 02:15: Linzess Yes Nasir Unknown Memor ia 02-05 Kyle l 02:15: Tylenol/cod Yes Nasir one tablet Memlissa john #3 #30 02-05 Kyle l 02:15: Promethazin Yes 25 mg = 1 M emoria e 07-22 tab, PO, l Hydrochlori 22:24: Q6H, PRN He rmann de 25 MG 00 Nausea, # Oral Tablet 15 tab, 0 [Phenergan] Refill(s), Pharmacy: [id number] Ketorolac No 15 mg, Memori a 07-22 Route: IV, l 20:58: ONCE, Dosing Weight 55.591, kg, Priority: STAT, Start date: 07/22/15 14:58:00, Stop date: 07/22/15 14:58:00 Promethazin No 12.5 mg, Me moria e 07-22 Route: IM, l 20:58: ONCE, Dosing Weight 55.591, kg, Priority: STAT, Start date: 07/22/15 14:58:00, Stop date: 07/22/15 14:58:00 Sodium 2015- No 500 mL, Memoria Chloride 07-22 500 ml/hr, l 0.154 20:58: Infuse [place] MEQ/ML 00 Over: 1 Injectable Hour, Solution Route: IV, ONCE, Priority: STAT, Dosing Weight 55.591 kg, Start date: 07/22/15 14:58:00, Duration: 1 doses or times, Stop date: 07/22/15 14:58:00 Cholestyram Cholestyram No 1{packe BID Cholestyra ine 4 GM ine 4 GM t_mixed mine 4 GM _with_w ater_or _non-ca rbonate d_drink } Gabapentin Gabapentin No BID Gabapentin 300 MG 300 MG 300 MG Xiidra 5 % Xiidra 5 % No 1{drop_ BID Xiidra 5 % into_af fected_ eye} Cranberry Cranberry No Cranberry Extract 250 Extract 250 Extract MG MG 250 MG Biotin Biotin No 1{table QD Biotin t} Estradiol Estradiol No Estradiol 0.1 MG/GM 0.1 MG/GM 0.1 MG/GM Vitamin B12 Vitamin B12 No QD Vitamin 3000 MCG 3000 MCG B12 3000 MCG Azelastine Azelastine No Azelastine HCl 0.1 % HCl 0.1 % HCl 0.1 % Azelastine Azelastine No 1{spray BID Azelastine HCl 0.1 % HCl 0.1 % _in_eac HCl 0.1 % h_nostr il} Meclizine Meclizine No Meclizine HCl 25 MG HCl 25 MG HCl 25 MG Restasis Restasis No 1{drop_ BID Restasis 0.05 % 0.05 % into_af 0.05 % fected_ eye} Simvastatin Simvastatin No 1{table QD Simvastati 40 MG 40 MG t_in_th n 40 MG e_eveni ng} Vitamin D3 Vitamin D3 No 1{capsu QD Vitamin D3 1.25 MG 1.25 MG le} 1.25 MG (93270 UT) (98069 UT) (69507 UT) PARoxetine PARoxetine No 1{table QD PARoxetine HCl 10 MG HCl 10 MG t_in_th HCl 10 MG e_morni ng} Hair Skin Hair Skin No Hair Skin Nails Nails Nails Pantoprazol Pantoprazol No 1{table QD Pantoprazo e Sodium 40 e Sodium 40 t} le Sodium MG MG 40 MG Fish Oil Fish Oil No Fish Oil Cholestyram Cholestyram No 1{packe BID Cholestyra ine 4 GM ine 4 GM t_mixed mine 4 GM _with_w ater_or _non-ca rbonate d_drink } Gabapentin Gabapentin No BID Gabapentin 300 MG 300 MG 300 MG Xiidra 5 % Xiidra 5 % No 1{drop_ BID Xiidra 5 % into_af fected_ eye} Cranberry Cranberry No Cranberry Extract 250 Extract 250 Extract MG MG 250 MG Biotin Biotin No 1{table QD Biotin t} Estradiol Estradiol No Estradiol 0.1 MG/GM 0.1 MG/GM 0.1 MG/GM Vitamin B12 Vitamin B12 No QD Vitamin 3000 MCG 3000 MCG B12 3000 MCG Azelastine Azelastine No Azelastine HCl 0.1 % HCl 0.1 % HCl 0.1 % Azelastine Azelastine No 1{spray BID Azelastine HCl 0.1 % HCl 0.1 % _in_eac HCl 0.1 % h_nostr il} Meclizine Meclizine No Meclizine HCl 25 MG HCl 25 MG HCl 25 MG Restasis Restasis No 1{drop_ BID Restasis 0.05 % 0.05 % into_af 0.05 % fected_ eye} Simvastatin Simvastatin No 1{table QD Simvastati 40 MG 40 MG t_in_th n 40 MG e_eveni ng} Vitamin D3 Vitamin D3 No 1{capsu QD Vitamin D3 1.25 MG 1.25 MG le} 1.25 MG (04872 UT) (50563 UT) (19476 UT) PARoxetine PARoxetine No 1{table QD PARoxetine HCl 10 MG HCl 10 MG t_in_th HCl 10 MG e_morni ng} Hair Skin Hair Skin No Hair Skin Nails Nails Nails Pantoprazol Pantoprazol No 1{table QD Pantoprazo e Sodium 40 e Sodium 40 t} le Sodium MG MG 40 MG Fish Oil Fish Oil No Fish Oil Cholestyram Cholestyram No 1{packe BID Cholestyra ine 4 GM ine 4 GM t_mixed mine 4 GM _with_w ater_or _non-ca rbonate d_drink } Gabapentin Gabapentin No BID Gabapentin 300 MG 300 MG 300 MG Xiidra 5 % Xiidra 5 % No 1{drop_ BID Xiidra 5 % into_af fected_ eye} Cranberry Cranberry No Cranberry Extract 250 Extract 250 Extract MG MG 250 MG Biotin Biotin No 1{table QD Biotin t} Estradiol Estradiol No Estradiol 0.1 MG/GM 0.1 MG/GM 0.1 MG/GM Vitamin B12 Vitamin B12 No QD Vitamin 3000 MCG 3000 MCG B12 3000 MCG Azelastine Azelastine No Azelastine HCl 0.1 % HCl 0.1 % HCl 0.1 % Azelastine Azelastine No 1{spray BID Azelastine HCl 0.1 % HCl 0.1 % _in_eac HCl 0.1 % h_nostr il} Meclizine Meclizine No Meclizine HCl 25 MG HCl 25 MG HCl 25 MG Restasis Restasis No 1{drop_ BID Restasis 0.05 % 0.05 % into_af 0.05 % fected_ eye} Simvastatin Simvastatin No 1{table QD Simvastati 40 MG 40 MG t_in_th n 40 MG e_eveni ng} Vitamin D3 Vitamin D3 No 1{capsu QD Vitamin D3 1.25 MG 1.25 MG le} 1.25 MG (00768 UT) (93340 UT) (86684 UT) PARoxetine PARoxetine No 1{table QD PARoxetine HCl 10 MG HCl 10 MG t_in_th HCl 10 MG e_morni ng} Hair Skin Hair Skin No Hair Skin Nails Nails Nails Pantoprazol Pantoprazol No 1{table QD Pantoprazo e Sodium 40 e Sodium 40 t} le Sodium MG MG 40 MG Fish Oil Fish Oil No Fish Oil Cholestyram Cholestyram No 1{packe BID Cholestyra ine 4 GM ine 4 GM t_mixed mine 4 GM _with_w ater_or _non-ca rbonate d_drink } Gabapentin Gabapentin No BID Gabapentin 300 MG 300 MG 300 MG Xiidra 5 % Xiidra 5 % No 1{drop_ BID Xiidra 5 % into_af fected_ eye} Cranberry Cranberry No Cranberry Extract 250 Extract 250 Extract MG MG 250 MG Biotin Biotin No 1{table QD Biotin t} Estradiol Estradiol No Estradiol 0.1 MG/GM 0.1 MG/GM 0.1 MG/GM Meclizine Meclizine No Meclizine HCl 25 MG HCl 25 MG HCl 25 MG Hair Skin Hair Skin No Hair Skin Nails Nails Nails Simvastatin Simvastatin No 1{table QD Simvastati 40 MG 40 MG t_in_th n 40 MG e_eveni ng} Azelastine Azelastine No 1{spray BID Azelastine HCl 0.1 % HCl 0.1 % _in_eac HCl 0.1 % h_nostr il} Cranberry Cranberry No Cranberry Extract 250 Extract 250 Extract MG MG 250 MG Pantoprazol Pantoprazol No 1{table QD Pantoprazo e Sodium 40 e Sodium 40 t} le Sodium MG MG 40 MG Biotin Biotin No 1{table QD Biotin t} Vitamin B12 Vitamin B12 No QD Vitamin 3000 MCG 3000 MCG B12 3000 MCG Gabapentin Gabapentin No BID Gabapentin 300 MG 300 MG 300 MG Xiidra 5 % Xiidra 5 % No 1{drop_ BID Xiidra 5 % into_af fected_ eye} Estradiol Estradiol No Estradiol 0.1 MG/GM 0.1 MG/GM 0.1 MG/GM PARoxetine PARoxetine No 1{table QD PARoxetine HCl 10 MG HCl 10 MG t_in_th HCl 10 MG e_morni ng} Vitamin D3 Vitamin D3 No 1{capsu QD Vitamin D3 1.25 MG 1.25 MG le} 1.25 MG (56715 UT) (63452 UT) (91349 UT) Fish Oil Fish Oil No Fish Oil Meclizine Meclizine No Meclizine HCl 25 MG HCl 25 MG HCl 25 MG Hair Skin Hair Skin No Hair Skin Nails Nails Nails Simvastatin Simvastatin No 1{table QD Simvastati 40 MG 40 MG t_in_th n 40 MG e_eveni ng} Azelastine Azelastine No 1{spray BID Azelastine HCl 0.1 % HCl 0.1 % _in_eac HCl 0.1 % h_nostr il} Cranberry Cranberry No Cranberry Extract 250 Extract 250 Extract MG MG 250 MG Pantoprazol Pantoprazol No 1{table QD Pantoprazo e Sodium 40 e Sodium 40 t} le Sodium MG MG 40 MG Biotin Biotin No 1{table QD Biotin t} Vitamin B12 Vitamin B12 No QD Vitamin 3000 MCG 3000 MCG B12 3000 MCG Gabapentin Gabapentin No BID Gabapentin 300 MG 300 MG 300 MG Xiidra 5 % Xiidra 5 % No 1{drop_ BID Xiidra 5 % into_af fected_ eye} Estradiol Estradiol No Estradiol 0.1 MG/GM 0.1 MG/GM 0.1 MG/GM PARoxetine PARoxetine No 1{table QD PARoxetine HCl 10 MG HCl 10 MG t_in_th HCl 10 MG e_morni ng} Vitamin D3 Vitamin D3 No 1{capsu QD Vitamin D3 1.25 MG 1.25 MG le} 1.25 MG (77322 UT) (91880 UT) (28502 UT) Fish Oil Fish Oil No Fish Oil Vitamin B12 Vitamin B12 No QD Vitamin 3000 MCG 3000 MCG B12 3000 MCG Azelastine Azelastine No Azelastine HCl 0.1 % HCl 0.1 % HCl 0.1 % Azelastine Azelastine No 1{spray BID Azelastine HCl 0.1 % HCl 0.1 % _in_eac HCl 0.1 % h_nostr il} Meclizine Meclizine No Meclizine HCl 25 MG HCl 25 MG HCl 25 MG Restasis Restasis No 1{drop_ BID Restasis 0.05 % 0.05 % into_af 0.05 % fected_ eye} Simvastatin Simvastatin No 1{table QD Simvastati 40 MG 40 MG t_in_th n 40 MG e_eveni ng} Vitamin D3 Vitamin D3 No 1{capsu QD Vitamin D3 1.25 MG 1.25 MG le} 1.25 MG (20357 UT) (18568 UT) (26717 UT) PARoxetine PARoxetine No 1{table QD PARoxetine HCl 10 MG HCl 10 MG t_in_th HCl 10 MG e_morni ng} Hair Skin Hair Skin No Hair Skin Nails Nails Nails Pantoprazol Pantoprazol No 1{table QD Pantoprazo e Sodium 40 e Sodium 40 t} le Sodium MG MG 40 MG Fish Oil Fish Oil No Fish Oil Immunizations Ordered Filled Immunization Date Status Comments Sourc e Immunization Name Name FLUZONE HIGH DOSE FLUZONE HIGH DOSE 2022-04-11 Completed [facility] OVER 65 OVER 65 14:43:00 [facility] FLUZONE HIGH DOSE FLUZONE HIGH DOSE 2022-04-11 Completed [facility] OVER 65 OVER 65 14:43:00 [facility] FLUZONE HIGH DOSE FLUZONE HIGH DOSE 2022-04-11 Completed [facility] OVER 65 OVER 65 14:43:00 [facility] Pneumovax (PPSV23) Pneumovax (PPSV23) 2021-10-10 [facility] 14:27:00 [facility] Pneumovax (PPSV23) Pneumovax (PPSV23) 2021-10-10 [facility] 14:27:00 [facility] Pneumovax (PPSV23) Pneumovax (PPSV23) 2021-10-10 [facility] 14:27:00 [facility] Pneumovax (PPSV23) Pneumovax (PPSV23) 2021-10-10 [facility] 14:27:00 [facility] Pneumovax (PPSV23) Pneumovax (PPSV23) 2021-10-10 [facility] 14:27:00 - [facility] Moderna COVID-19 Moderna COVID-19 2020-09-08 Com[facility] Vaccine 09:30:00 - [facility] Moderna COVID-19 Moderna COVID-19 2020-09-08 Com[facility]ine Vaccine 09:30:00 - [facility] Moderna COVID-19 Moderna COVID-19 2020-09-08 Com[facility]ine 09:30:00 - [facility] Moderna COVID-19 Moderna COVID-19 2020-09-08 Completed [facility]ine 09:30:00 - [facility] Moderna COVID-19 Moderna COVID-19 2020-09-08 Com[facility] Vaccine 09:30:00 - [facility] Moderna COVID-19 Moderna COVID-19 2020-08-11 Com[facility]ine Vaccine 09:29:00 - [facility] Moderna COVID-19 Moderna COVID-19 2020-08-11 Completed [facility] Vaccine 09:29:00 - [facility] Moderna COVID-19 Moderna COVID-19 2020-08-11 Completed [facility]ine Vaccine 09:29:00 - [facility] Moderna COVID-19 Moderna COVID-19 2020-08-11 Completed [facility]ine Vaccine 09:29:00 - [facility] Moderna COVID-19 Moderna COVID-19 2020-08-11 Com[facility]ine Vaccine 09:29:00 - [facility] Shingrix Shingrix 2020-06-04 [facility] 09:12:00 [facility] Shingrix Shingrix 2020-06-04 Com[facility] 09:12:00 [facility] Shingrix Shingrix 2020-06-04 Com[facility] 09:12:00 [facility] Shingrix Shingrix 2020-06-04 Com[facility] 09:12:00 - [facility] Shingrix Shingrix 2020-06-04 Completed [facility] 09:12:00 - [facility] Td Td 2020-06-04 Completed [facility] 09:11:00 - [facility] Td Td 2020-06-04 Completed [facility] 09::00 - [facility] Td Td 2020-06-04 Completed [facility] 09:11:00 - [facility] Td Td 2020-06-04 Completed [facility] 09:11:00 - [facility] Td Td 2020-06-04 Completed [facility] 09:11:00 - [facility] FluAD FluAD 2020-05-21 Completed [facility] 16:43:00 - [facility] FluAD FluAD 2020-05-21 Completed [facility] 16:43:00 - [facility] FluAD FluAD 2020-05-21 Completed [facility] 16:43:00 - [facility] FluAD FluAD 2020-05-21 Completed [facility] 16:43:00 - [facility] FluAD FluAD 2020-05-21 Completed [facility] 16:43:00 - [facility] Prevnar 13 (PCV13) Prevnar 13 (PCV13) 2020-05-21 Completed [facility] 16:39:00 - [facility] Prevnar 13 (PCV13) Prevnar 13 (PCV13) 2020-05-21 Completed [facility] 16:39:00 - [facility] Prevnar 13 (PCV13) Prevnar 13 (PCV13) 2020-05-21 Completed [facility] 16:39:00 - [facility] Prevnar 13 (PCV13) Prevnar 13 (PCV13) 2020-05-21 Completed [facility] 16:39:00 - [facility] Prevnar 13 (PCV13) Prevnar 13 (PCV13) 2020-05-21 Completed [facility] 16:39:00 - [facility] FLUZONE HIGH DOSE FLUZONE HIGH DOSE 2019-08-15 Completed [facility] OVER 65 OVER 65 16:35:00 [facility] FLUZONE HIGH DOSE FLUZONE HIGH DOSE 2019-08-15 Completed [facility] OVER 65 OVER 65 16:35:00 - [facility] FLUZONE HIGH DOSE FLUZONE HIGH DOSE 2019-08-15 Completed [facility] OVER 65 OVER 65 16:35:00 [facility] FLUZONE HIGH DOSE FLUZONE HIGH DOSE 2019-08-15 Completed [facility] OVER 65 OVER 65 16:35:00 [facility] FLUZONE HIGH DOSE FLUZONE HIGH DOSE 2019-08-15 Completed [facility] OVER 65 OVER 65 16:35:00 - [facility] Moderna COVID-19 Moderna COVID-19 Unknown Completed [facility] Vaccine Vaccine [facility] Moderna COVID-19 Moderna COVID-19 Unknown Completed [facility] Vaccine Vaccine [facility] FluAD FluAD Unknown Completed [facility] Shingrix Shingrix Unknown Completed [facility] Td Td Unknown Completed [facility] Pneumovax (PPSV23) Pneumovax (PPSV23) Unknown Completed [facility] FLUZONE HIGH DOSE FLUZONE HIGH DOSE Unknown Completed [facility] OVER 65 OVER 65 - [facility] FLUZONE HIGH DOSE FLUZONE HIGH DOSE Unknown Completed [facility] OVER 65 OVER 65 [facility] Prevnar 13 (PCV13) Prevnar 13 (PCV13) Unknown Completed [facility] influenza virus Unknown Completed [facility] vaccine, Tony inactivated diphtheria/pertussi Unknown Completed [facility] s, acel/tetanus [place] adult Hx influenza Unknown Completed [facility] vaccine-unspecified Steph nn <sup>2</sup> Hx influenza Unknown Completed [facility] vaccine-unspecified Steph nn <sup>1</sup> influenza virus Unknown Completed [facility], Tony inactivated<sup>1</ sup> influenza virus Unknown Completed [facility], Tony inactivated<sup>2</ sup> Vital Signs Vital Name Observation Time Observation Value Comments Source height 2022-04-11 14:00:00 64 [in_i] [facility] weight 2022-04-11 14:00:00 145.6 [lb_av] [facility] temperature 2022-04-11 14:00:00 97.1 [degF] [facility] bmi 2022-04-11 14:00:00 24.99 kg/m2 [facility] oximetry 2022-04-11 14:00:00 100 % [facility] respiratory rate 2022-04-11 14:00:00 15 /min Comm on [facility] blood pressure 2022-04-11 14:00:00 119 mm[Hg] [facility] - systolic [facility] blood pressure 2022-04-11 14:00:00 54 mm[Hg] [facility] - diastolic [facility] height 2021-12-12 15:20:00 64 [in_i] [facility] weight 2021-12-12 15:20:00 154 [lb_av] [facility] temperature 2021-12-12 15:20:00 95.1 [degF] [facility] bmi 2021-12-12 15:20:00 26.43 kg/m2 [facility] oximetry 2021-12-12 15:20:00 98 % [facility] respiratory rate 2021-12-12 15:20:00 17 /min [facility] on [facility] blood pressure 2021-12-12 15:20:00 104 mm[Hg] [facility] - systolic [facility] blood pressure 2021-12-12 15:20:00 55 mm[Hg] [facility] - diastolic [facility] Weight 2017-10-12 15:27:00 [facility] [place] BMI Calculated 2017-10-12 15:27:00 [facility] Systolic (mm Hg) 2017-10-12 15:27:00 Christian rial [place] Diastolic (mm Hg) 2017-10-12 15:27:00 Mem orial Tony Heart Rate 2017-10-12 15:27:00 [facility] [place] Height 2017-10-12 15:27:00 162.56 cm [facility] [place] Systolic (mm Hg) 2016-08-05 17:47:00 Christian rial [place] Diastolic (mm Hg) 2016-08-05 17:47:00 Mem [facility] [place] Heart Rate 2016-08-05 17:47:00 [facility] Respitory Rate 2016-08-05 17:47:00 [facility] Temperature Oral (F) 2016-08-05 17:47:00 97.9 F [facility] [place] Systolic (mm Hg) 2016-08-05 14:07:00 Christian rial Tony Diastolic (mm Hg) 2016-08-05 14:07:00 Mem [facility] [place] Respitory Rate 2016-08-05 14:07:00 [facility] [place] Temperature Oral (F) 2016-08-05 14:07:00 98.7 F [facility] [place] Heart Rate 2016-08-05 14:07:00 [facility] [place] Systolic (mm Hg) 2016-08-05 09:00:00 Christian rial Tony Diastolic (mm Hg) 2016-08-05 09:00:00 Mem orial [facility] Respitory Rate 2016-08-05 09:00:00 [facility] [place] Temperature Oral (F) 2016-08-05 09:00:00 97.6 F [facility] [place] Heart Rate 2016-08-05 09:00:00 [facility] [place] BMI Calculated 2016 13:35:00 [facility] [place] Height 2016 13:35:00 162.56 cm [facility] Weight 2016 13:35:00 [facility] [place] Weight 2016-02-04 16:00:00 [facility] [place] Height 2016-02-04 16:00:00 [facility] [place] Heart Rate 2016-02-04 16:00:00 [facility] [place] Diastolic (mm Hg) 2016-02-04 16:00:00 Mem orial [place] Systolic (mm Hg) 2016-02-04 16:00:00 Christian rial Tony Weight 2016-01-17 15:15:00 [facility] [place] Height 2016-01-17 15:15:00 [facility] [place] Heart Rate 2016-01-17 15:15:00 [facility] Diastolic (mm Hg) 2016-01-17 15:15:00 Mem [facility] [place] Systolic (mm Hg) 2016-01-17 15:15:00 Christian rial [facility] Heart Rate 2015-07-22 22:47:00 [facility] Temperature Oral (F) 2015-07-22 22:47:00 97.9 F [facility] Respitory Rate 2015-07-22 22:47:00 [facility] [place] Systolic (mm Hg) 2015-07-22 22:47:00 Christian rial [place] Diastolic (mm Hg) 2015-07-22 22:47:00 Mem orial [facility] Weight 2015-07-22 20:20:00 [facility] Temperature Oral (F) 2015-07-22 20:20:00 98.2 F [facility] [place] Heart Rate 2015-07-22 20:20:00 [facility] [place] Respitory Rate 2015-07-22 20:20:00 [facility] Systolic (mm Hg) 2015-07-22 20:20:00 Christian rial [facility] Diastolic (mm Hg) 2015-07-22 20:20:00 Mem orial [place] Procedures Procedure Date / Time Performing Clinician Source Performed Hernia repair 2016 06:00:00 [facility] Her chung Anterior and posterior 2013-03-17 05:00:00 [facility] [place] colporrhaphy Cystoscopy 2013-03-17 05:00:00 [facility] Her chung Cholecystectomy [facility] [place] Excision of bunion [facility] Herm pravin Hysterectomy [facility] [place] Encounters Start End Encounter Admission Attending Care Care Encounter Source Date/Time Date/Time Type Type Clinicians Facility Department ID 2022-06-26 Outpatient Patino, Na STLMLC STLC [id number] 2 [facility] 16:11:02 [facility] 2022-04-09 Outpatient Patino, Na STLMLC STLMLC [id number] [facility] 10:51:03 [facility] 2021-12-24 Outpatient Patino, Na STLMLC STLMLC [id number] 2 [facility] 09:27:03 [facility] 2021-12-23 Outpatient Patino, Na STLMLC STLMLC [id number] 2 Common 13:43:02 [facility] 2021-12-12 Outpatient Patino, Na STLMLC STLMLC [id number] 2 Common 15:09:03 [facility] 2023-03-03 2023-03-03 Outpatient [id number] PRIV PRIV [id number] [facility] 00:00:00 00:00:00 patricio_S [id number] Medic al 2022-10-02 2022-10-02 (TEL) STLMLC STLMLC [id number] [facility] 00:00:00 00:00:00 [facility] 2022-07-04 2022-07-04 (TEL) STLMLC STLMLC [id number] Co [facility]mon 00:00:00 00:00:00 [facility] 2022-04-11 2022-04-11 OFFICE STLMLC STLMLC [id number] Co mmon 00:00:00 00:00:00 VISIT [facility] PT - CHI LEVEL 4 [facility] 2022-01-31 2022-01-31 [facility]:00:00 00:00:00 HN [id number] [facility] Program 2021-12-13 2021-12-13 (TEL) STLMLC STLMLC [id number] Co mmon 00:00:00 00:00:00 [facility] 2021-12-12 2021-12-12 OFFICE STLMLC STLMLC [id number] Co mmon 00:00:00 00:00:00 VISIT [facility] PT - CHI LEVEL 4 [facility] 2021-06-20 2021-06-20 Inpatient EL Garcia, HCAPM DAYS [id number] [facility] 06:18:00 06:18:00 [facility] 2018-04-28 2018-04-30 Phone 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 4522 [id number] [facility] 13:40:00 04:59:59 Message emerson Wilson 11 sandra [place] 2018-04-28 2018-04-29 Outpatient MHMG MH[facility] [id number] 08:40:00 23:59:59 11 2018-04-26 2018-04-28 Phone nullFlavo [facility]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 4522 [id number] Mem[facility] 14:26:00 04:59:59 Message emerson Wilson 10 sandra [place] 2018-04-26 2018-04-27 Outpatient MHMG MH[facility] [id number] 09:26:00 23:59:59 10 2017-10-15 2017-10-16 Outpatient nullFlavo MG Family 4 [id number] Memoria 16:00:00 04:59:59 r Medicine 27 sandra Jimenez 2017-10-15 2017-10-15 Outpatient VISIT, MG MG [id number] 11:00:00 23:59:59 NURSE ST[facility] 27 DOPPLER 2017-10-15 2017-10-15 [place] [id number] Mem[facility] 16:00:00 16:00:00 Pre-Reg r Radiology 26 sandra Jimenez 2017-10-15 2017-10-15 Outpatient MHIE MHIE [id number] Memoria 11:00:00 11:00:00 27 sandra Jimenez 2017-10-15 2017-10-15 Outpatient MHIE MHIE [id number] Memoria 11:00:00 11:00:00 26 sandra Jimenez 2017-10-15 2017-10-15 Outpatient VISIT, MG MG [id number] 11:00:00 11:00:00 [facility] 2017-10-15 2017-10-15 Outpatient VISIT, MG MG [id number] 11:00:00 11:00:00 [facility]SE [facility] 2017-10-12 2017-10-13 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 4 [id number] Memoria 15:30:00 04:59:59 r [place] 25 sandra Jimenez 2017-10-12 2017-10-12 Outpatient Johan MG MG [id number] 10:30:00 23:59:59 , 25 Erika Juarez 2017-10-12 2017-10-12 Outpatient Johan MG MG [id number] 10:30:00 23:59:59 , 25 Erika B 2017-10-12 2017-10-12 Outpatient IE IE [id number] [facility] 10:30:00 10:30:00 25 [place] 2017-09-28 2017-09-30 Phone nullFlavo 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 4522 [id number] [facility] 14:04:00 04:59:59 Message r [place] 09 [place] 2017-09-28 2017-09-29 Outpatient MG MG [id number] 09:04:00 23:59:59 09 2017-07-23 2017-07-23 Outpatient Nasir Peterson [id number] [facility] 13:10:00 13:10:00 Kyle Kyle II alW orks II MD REILLY 2017-06-30 2017-06-30 Outpatient Nasir Peterson [id number] [facility] 09:03:00 09:03:00 Kyle Kyle II alW orks II MD REILLY 2017-06-22 2017-06-22 Outpatient Nasir Peterson [id number] [facility]inic 07:44:00 07:44:00 Kyle Kyle II alW orks II MD REILLY 2017-06-12 2017-06-12 Outpatient Nasir Peterson [id number] [facility] 16:11:00 16:11:00 Kyle Kyle II alW orks II MD REILLY 2017-04-10 2017-04-10 Outpatient Nasir Peterson [id number] [facility]inic 15:25:00 15:25:00 Kyle Kyle II alW orks II MD REILLY 2016-12-30 2016-12-30 Outpatient Nasir Peterson [id number] [facility]inic 11:17:00 11:17:00 Kyle Kyle II alW orks II MD REILLY 2016-12-23 2016-12-23 Outpatient Nasir Peterson [id number] [facility]inic 07:36:00 07:36:00 Kyle Kyle II alW orks II MD REILLY 2016-10-27 2016-10-27 Outpatient Nasir Peterson [id number] [facility] 10:06:00 10:06:00 Kyle Kyle II alW orks II MD REILLY 2016-10-24 2016-10-24 Outpatient MHIE MHIE [id number] Memoria 11:30:00 11:30:00 23 sandra Jimenez 2016-10-24 2016-10-24 Outpatient MHIE MHIE [id number] Memoria 10:30:00 10:30:00 22 sandra Jimenez 2016-10-24 2016-10-24 Outpatient MHIE MHIE [id number] Memoria 10:30:00 10:30:00 24 sandra Jimenez 2016-10-21 2016-10-21 Outpatient Nasir Peterson [id number] [facility]inic 09:56:00 09:56:00 Kyle Kyle II alW orks MARISOL REILLY MD 2016-10-07 2016-10-07 Outpatient MHIE MHIE [id number] Memoria 13:30:00 13:30:00 21 l Tony 2016-10-07 2016-10-07 Outpatient MHIE MHIE [id number] Memoria 10:00:00 10:00:00 18 l Tony 2016-10-07 2016-10-07 Outpatient MHIE MHIE [id number] Memoria 09:30:00 09:30:00 19 l Tony 2016-10-03 2016-10-03 Outpatient Nasir Peterson [id number] [facility]Clinic 11:46:00 11:46:00 Kyle Kyle II alW ormanda DAMON MD, MD 2016-10-02 2016-10-02 Outpatient Nasir Peterson [id number] [facility]inic 12:09:00 12:09:00 Kyle Kyle II alW ormanda DAMON MD, MD 2016-09-08 2016-09-08 Refill nullFlavo [place] [id number] [facility]oria 21:07:00 21:07:00 r Family [id number] l Practice [id number] [facility] [id number] 2016-09-08 2016-09-08 Outpatient [facility] [id number] [facility]inic 15:07:00 15:07:00 Family Family alWork s [facility] 2016-09-01 2016-09-01 Outpatient IE IE [id number] Memoria 10:45:00 10:45:00 20 sandra Tony 2016-08-05 2016-08-05 Bedded nullFlavo [facility] [id number] Memoria 15:18:00 21:30:00 Outpatient Tony 07 [facility] 2016-08-05 2016-08-05 Outpatient MARY KATE Maynard [facility] [id number] 09:18:00 15:30:00 Rodolfo Serrano 2016-07-31 2016-07-31 Clinical nullFlavo [place] [id number] 1-1 Memoria 20:21:00 20:21:00 Advice r Family [id number] During Practice [id number] [facility] [employer] [id number] Hours 2016-07-31 2016-07-31 Clinical nullFlavo [place] [id number] Memoria 20:21:00 20:21:00 Advice r Family [id number] l During Practice [id number] [facility] [employer] [id number] Hours 2016-07-31 2016-07-31 Outpatient [facility] [id number] [facility]Clinic 14:21:00 14:21:00 Family Family alWork s Practice [facility] 2016-05-20 2016-05-20 Outpatient [facility] [id number] Memoria 14:30:00 14:30:00 17 l [place] 2016-04-14 2016-04-14 Bedded nullFlavo [facility] [id number] Memoria 12:34:00 16:29:00 Outpatient r Tony [address] [place] [address] 2016-04-14 2016-04-14 Outpatient Zoraida [facility] [id number] 07:34:00 11:29:00 Adam Suggs 06 2016-02-04 2016-02-04 annual/2w [facility] [place] [id number] 71-b [facility] 17:00:00 17:00:00 r Family [id number]-z l Practice [id number] [facility] [id number] 2016-02-04 2016-02-04 annual/2w [place] f191e2 45-2 [facility] 17:00:00 17:00:00 r Family f56-012s-9 l Practice [id number] [facility] [id number] 2016-02-04 2016-02-04 annual/2w [place] [place] [id number] 71-6 [facility] 16:00:00 16:00:00 r Family [id number] l Practice [id number] [facility] [id number] 2016-02-04 2016-02-04 Outpatient [facility] [id number] eClinic 11:00:00 11:00:00 Family Family alWork s Practice [facility] 2016-01-18 2016-01-18 Needs [facility] [place] 2bx04bq5 -1 [facility] 20:01:00 20:01:00 referral r Family [id number] l Practice [id number] [facility] 5fa0b3 2016-01-18 2016-01-18 Needs [place] b1tt120t -3 Memoria 20:01:00 20:01:00 referral r Family 4bf-4a83-a l Practice [id number] [facility] 5pc126 2016-01-18 2016-01-18 Needs [place] [id number] -7 Memoria 19:01:00 19:01:00 referral r Family 725-4b55-a l Practice [id number] [facility] f173a1 2016-01-18 2016-01-18 Needs [place] [id number] -3 Memoria 19:01:00 19:01:00 referral r Family 71c-4ad8-8 l Practice [id number]-f1t22x [facility] [id number] 3332-07-15 2016-01-18 Outpatient [facility] [address] eClinic 14:01:00 14:01:00 Family Family alWork s Practice [facility] 2016-01-17 2016-01-17 hernia [place] [id number] -5 Memoria 16:15:00 16:15:00 r Family b62-2755-q l Practice [id number] [facility] 94fbe4 2016-01-17 2016-01-17 hernia [place] [id number] -1 [facility]oria 16:15:00 16:15:00 r Family 127-49cd-9 l Practice [id number] [facility] 26bb1d 2016-01-17 2016-01-17 hernia [place] [id number] -f Memoria 15:15:00 15:15:00 r Family n8m-5y13-l l Practice [id number] [facility] 0c1eb3 2016-01-17 2016-01-17 hernia [place] f5x88v98 -c Memoria 15:15:00 15:15:00 r Family g5f-3k21-u l Practice [id number] [facility] 8e911x 2016-01-17 2016-01-17 hernia [place] [id number] -4 Memoria 15:15:00 15:15:00 r Family 2cf-4be4-9 l Practice [id number] [facility] [id number] 2016-01-17 2016-01-17 Outpatient [facility] [address] eClinic 10:15:00 10:15:00 Family Family alWork s Practice [facility] 2016-01-11 2016-01-11 Outpatient [facility] [id number] Memoria 11:00:00 11:00:00 16 sandra Jimenez 2015-12-21 2015-12-21 Outpatient [facility] [id number] Memoria 14:15:00 14:15:00 15 sandra Jimenez 2015-12-18 2015-12-18 Outpatient [facility] [id number] Memoria 14:45:00 14:45:00 14 sandra Jimenez 2015-10-03 2015-10-03 Outpatient [facility] [id number] Memoria 15:00:00 15:00:00 13 sandra Jimenez 2015-09-21 2015-09-21 Outpatient [facility] [id number] Memoria 13:40:00 13:40:00 10 sandra Jimenez 2015-09-13 2015-09-13 Outpatient [facility] [id number] Memoria 14:45:00 14:45:00 12 sandra Jimenez 2015-09-13 2015-09-13 Outpatient [facility]IE [facility] [id number] Memoria 14:30:00 14:30:00 11 sandra Jimenez 2015-08-31 2015-08-31 Outpatient [facility] [id number] Memoria 13:20:00 13:20:00 09 sandra Jimenez 2015-08-16 2015-08-16 Outpatient [facility]IE [facility] [id number] Memoria 11:00:00 11:00:00 08 sandra Jimenez 2015-08-02 2015-08-02 Outpatient [facility] [id number] Memoria 14:30:00 14:30:00 03 sandra Jimenez 2015-08-02 2015-08-02 Outpatient [facility] [id number] Memoria 13:30:00 13:30:00 04 sandra Jimenez 2015-08-02 2015-08-02 Outpatient [facility]IE [facility] [id number] Memoria 13:00:00 13:00:00 07 sandra Jimenez 2015-07-25 2015-07-25 Outpatient MH[facility] [id number] Memoria 15:20:00 15:20:00 05 sandra Jimenez 2015-07-22 2015-07-22 EC nullFlavo [facility] [id number] Memoria 20:16:00 22:50:00 Emergency r [place] 04 l [place] Isaura Choi 2015-07-22 2015-07-22 Outpatient Aureliano SL S [id number] 14:16:00 16:50:00 Eric Chan 2015-07-10 2015-07-10 Outpatient MARIA DOLORES [facility] [id number] Memoria 08:45:00 08:45:00 00 sandra Jimenez 2015-05-07 2015-05-07 Outpatient MARIA DOLORES MARIA DOLORES [id number] Memoria 10:00:00 10:00:00 02 sandra Jimenez 2015-04-03 2015-04-03 Outpatient MARIA DOLORES MARIA DOLORES [id number] Memoria 16:00:00 16:00:00 01 sandra Jimenez 2015-02-05 2015-02-06 Outpatient Sandy [facility] 4522 [id number] Memoria 15:15:00 04:59:00 r Tony 02 l Isaura Choi 2015-02-05 2015-02-05 Outpatient Ev [facility] [id number] 10:15:00 23:59:00 Nadim Eugenio 02 Results Test Description Test Time Test Comments Results Result Comments Source SURG 2021-06-21 14:37:00 Test Item Value Reference Range Interpretation Com[place] SURG RUN (test DATE: 06/21/21 KARL erazo - IKE PAGE 1 RUN TIME: 1437 Specimen Inquiry RUN USER: code = INTERFACE SURG) PATIE NT: SHANIQUA EPPERSON ACCT #: [id number] LOC: LIZABETH Vizcaino #: [id number] AGE/SX: 65/F ROOM: RE06/20/21[facility] DR: Karen Garcia MD : 51 BED: DIS: STATUS: DEP [facility] TLOC: SPEC #: [id number]:[id number] RECD: 06/20 STATUS: AYAD RE #: [id number] NAVNEET: 06/20/21 DR: Lewis Garcia MD ENTERED: 06/20/21 SP TYPE: SURG OTHR DR: Debra Patino DO ORDERED: SURG PATH LVL 4 COPIES TO: Lewis Montes De Oca MD [address] [place] [address] Debra Patino DO [address] [place] [address] HISTOLOGY: TISSUE ID BLK PCS ZENIA LEV PROCEDURE DISPOS ITION ____ ___ ___ ___ STOMACH, NOS A 1 2 PROCEDURES: SURG PATH LVL 4 (06/20/21) TISSUES: A. STOMACH, NOS - GASTRIC BODY AND ANTRU M CPT CODES CPT CODE(S): 46046 , , , , , , FINAL DIAGNOSIS Stomach, body and antrum, biopsy: MIL D CHRONIC GASTRITIS NEGATIVE FOR INTESTINAL METAPLASIA, DYSPLASIA, OR MALIGNANCY NEGATIVE FOR ROBE COBACTER PYLORI ORGANISMS GROSS DESCRIPTION Gastric body and antrum biopsy. Received in formalin is a quiroz tissue fragment, 0.5 cm, all as A. /valery/jack Grossing performed at [facility] Pathology, [address], [address], [place] [address]. Fisher Hand Line: Clark Tineo M.D. CONTINUED ON NEXT PA GE RUN DATE: 06/21/21 [facility] - LAB PAGE 2 RUN TIME: 0067 Specimen Inquiry RUN USER: INTERFACE SPEC #: [facility]:[id number] PATIENT: SHANIQUA EPPERSON #[id number] (Continued) ------ MICROSCOPIC DESCRIPTI ON Gastric body and antrum biopsy. Sections demonstrate gastric mucosa with mild chronic inf lammation. No dysplasia or malignancy is identified. No evidence of intestinal metaplasia or Helicobacter pylori organisms is seen. Signed SIGNATURE ON FILE Nasir Swain 06/21/21 143 7 END OF REPORT BASIC METABOLIC [id number] 15:35:00 Test Item Value Reference Range Interpretation [...] 8.8 MG/DL 8.5-10.1 N COVID 19 INHOUSE [id number] 15:27:00 Test Item Value Reference Range Interpretation Comments COVID 19 INHOUSE AG NEGATIVE Negative Per manu facturer, (test code = negative result s should [id number]) be treated aspr esumptive and, if inconsi stent with clinical signs andsymptoms or necessary for patient man agement, should betested with an alternative mol ecular assay. Negative resultsdo not preclude SA RS-CoV-2 infection and s hould not be usedas the s ole basis for patient man agement decisions. Nega tive results should be considered in t he context of apatient's r ecent exposures, hist ory, presence of cli nicalsigns and symptoms co nsistent with COVID-19. CBC W/AUTO [id number] 15:22:00 Test Item Value Reference Range Interpretation [...] code NO DIFF/SCN CRITERIA = MDIFF) - XR CHEST 1 [id number] 14:55:00 [facility] : 1955 Sex: F Name: SHANIQUA EPPERSON [facility] : 1955 Age/S: 65 / F [id number] Unit #: [id number] Loc: [place] [address] Phys: Didi Lux MD Acct: [id number] Dis Date: Status: PRE [facility] PHONE #: [phone] Exam Date: 06/17/2021 1455 FAX #: Reason: PREOP EXAMS: CPT: [id number] XR CHEST 1 V 11885 Fluoro Time: DAP (Gy m2): Air Kerma (mGy): EXAMINATION: Frontal chest radiograph INDICATION: PREOP, R10.13 COMPARISON: None LOCATION: S17 FINDINGS: Calcified right upper lobe nodule. No acute abnormality is seen in the lungs. No pleural effusion or pneumothorax identified. Cardiac silhouette is normal in size. IMPRESSION: No acute abnormality identified. at 1455 Reported and signed by: Olaf Griggs M.D. CC: Didi Lux MD; Lewis Garcia MD; Debra Walkerg PAGE 1 Signed Report Name: [place] : 1955 Age/S: 65 / F [id number] Unit #: [id number] Loc: [place] [address] Phys: Didi Lux MD Acct: [id number] Dis Date: Status: PRE SDC PHONE #: [phone] Exam Date: 06/17/2021 1454 FAX #: Reason:PREOP EXAMS: CPT: [id number] XR CHEST 1 V 52984 Fluoro Time: DAP (Gy m2): Air Kerma (mGy): (Continued) Technologist: Izabel Cummings, RT(R) Trnscb Date/Time: 06/17/2021 (1774) [email or web address] Orig Print D/T: S: 06/17/2021 (8084) PAGE 2 Signed CyzlsfXWYGBZDUJLYT2166-50-66 09:34:00 Test Item Value Reference Range Interpretation Comments AGAP (test code = AGAP) 8.7 10.0-20.0 [facility]msbjynWIPNTVYLWYUO6246-04-13 09:34:00 Test Item Value Reference Range Interpretation Comments eGFR (test code = eGFR) 113 [facility] HospitalXievwgsNUCFQGWOQNQS0021-94-30 09:34:00 Test Item Value Reference Range Interpretation Comments Chloride Lvl (test code = Chloride Lvl) 106 95-109 [facility] HospitalEtdmatuZTSQNXJDSNBC1203-77-41 09:34:00 Test Item Value Reference Range Interpretation Comments Potassium Lvl (test code = Potassium 3.7 3.5-5.1 Lvl) [facility] HospitalZsmqflcNMWQRNRAKNUD0152-56-35 09:34:00 Test Item Value Reference Range Interpretation Comments CO2 (test code = CO2) 29 24-32 [facility] HospitalXqbzfowDHEQDNALMCHS1558-06-69 09:34:00 Test Item Value Reference Range Interpretation Comments Calcium Lvl (test code = Calcium Lvl) 8.5 8.5-10.5 [facility] HospitalVbddxdyQKYHWAHLTQCV2779-70-59 09:34:00 Test Item Value Reference Range Interpretation Comments Sodium Lvl (test code = Sodium Lvl) 140 135-145 [facility] HospitalZvmexndPGQNMOLMBAZG2434-61-24 09:34:00 Test Item Value Reference Range Interpretation Comments BUN (test code = BUN) 5 7-22 [facility] HospitalQrziydrWWZIRHAYMBSI4748-14-75 09:34:00 Test Item Value Reference Range Interpretation Comments Creatinine Lvl (test code = Creatinine 0.59 0.50-1.40 Lvl) [facility] HospitalHlearyrTHJSXUKKYKUS0202-91-00 09:34:00 Test Item Value Reference Range Interpretation Comments Glucose Lvl (test code = Glucose Lvl) 88 70-99 [facility] HospitalFvboqspSQIALEEMRX4108-79-14 09:34:00 Test Item Value Reference Range Interpretation Comments MCV (test code = MCV) 92.5 80.0-98.0 [facility] HospitalBjuqmwfLTUTSHXDZI5128-90-84 09:34:00 Test Item Value Reference Range Interpretation Comments RDW (test code = RDW) 12.9 11.5-14.5 [facility] HospitalOlojpjkCKYCYZVUJY5028-71-46 09:34:00 Test Item Value Reference Range Interpretation Comments MPV (test code = MPV) 8.4 7.4-10.4 [facility] HospitalSuxixvmLUAATGBMJZ9480-57-89 09:34:00 Test Item Value Reference Range Interpretation Comments Platelet (test code = Platelet) 184 133-450 [facility] HospitalUtguevhRTBTWYHMSW7595-45-63 09:34:00 Test Item Value Reference Range Interpretation Comments WBC (test code = WBC) 10.5 3.7-10.4 [facility] HospitalPfmnfwlYRWYISXKJK4820-50-23 09:34:00 Test Item Value Reference Range Interpretation Comments Hgb (test code = Hgb) 11.9 12.0-16.0 [facility] HospitalQmmnaasJBGSZYIAXG9639-47-31 09:34:00 Test Item Value Reference Range Interpretation Comments Hct (test code = Hct) 35.2 36.0-48.0 [facility] HospitalZvbqjzhYMWXUSDHEI1035-95-10 09:34:00 Test Item Value Reference Range Interpretation Comments MCHC (test code = MCHC) 33.7 32.0-36.0 [facility] HospitalHvrwiwvXTTBFMKIWU9381-65-46 09:34:00 Test Item Value Reference Range Interpretation Comments MCH (test code = MCH) 31.2 pg 27.0-31.0 [facility] HospitalMymdaqhJYMNJYDVJK3268-74-16 09:34:00 Test Item Value Reference Range Interpretation Comments RBC (test code = RBC) 3.81 4.20-5.40 [facility] HospitalWarzwqxYGIXCUAZZR6124-07-94 09:34:00 Test Item Value Reference Range Interpretation Comments Segs (test code = Segs) 71.6 45.0-75.0 [facility] HospitalQptwghgWGUDEANIYZ3557-97-79 09:34:00 Test Item Value Reference Range Interpretation Comments Lymphocytes # (test code = Lymphocytes 2.2 1.0-5.5 #) [facility] HospitalSwovafqJZRXRDLUGQ6044-83-62 09:34:00 Test Item Value Reference Range Interpretation Comments Segs-Bands # (test code = Segs-Bands #) 7.5 1.5-8.1 [facility] HospitalNzwbrpjWZMDMNWNSA4457-04-03 09:34:00 Test Item Value Reference Range Interpretation Comments Basophils (test code = Basophils) 0.2 <=1.0 [facility] HospitalQksniwbFCYMQXXBIN0246-58-78 09:34:00 Test Item Value Reference Range Interpretation Comments Eosinophils (test code = Eosinophils) 0.1 <=4.0 [facility] HospitalDkdbbaeKAASPDUBQV4683-52-89 09:34:00 Test Item Value Reference Range Interpretation Comments Monocytes # (test code = Monocytes #) 0.7 <=0.8 [facility] HospitalZvrmktvLDELXEPFXQ7861-88-64 09:34:00 Test Item Value Reference Range Interpretation Comments Monocytes (test code = Monocytes) 7.1 2.0-12.0 [facility] HospitalUvesafuJYFEOADUKY3547-42-85 09:34:00 Test Item Value Reference Range Interpretation Comments Lymphocytes (test code = Lymphocytes) 21.0 20.0-40.0 [facility]2017-01-26 19:45:00 Test Item Value Reference Range Interpretation Comments Creatinine Lvl (test code = Creatinine 0.69 0.50-1.40 Lvl) [facility]2017-01-26 19:45:00 Test Item Value Reference Range Interpretation Comments eGFR (test code = eGFR) 108 [facility]2017-01-26 19:45:00 Test Item Value Reference Range Interpretation Comments Calcium Lvl (test code = Calcium Lvl) 8.8 8.5-10.5 [facility]2017-01-26 19:45:00 Test Item Value Reference Range Interpretation Comments CO2 (test code = CO2) 30 24-32 [facility]2017-01-26 19:45:00 Test Item Value Reference Range Interpretation Comments Potassium Lvl (test code = Potassium 4.3 3.5-5.1 Lvl) [facility]2017-01-26 19:45:00 Test Item Value Reference Range Interpretation Comments Sodium Lvl (test code = Sodium Lvl) 143 135-145 [facility]2017-01-26 19:45:00 Test Item Value Reference Range Interpretation Comments Chloride Lvl (test code = Chloride Lvl) 106 95-109 [facility]2017-01-26 19:45:00 Test Item Value Reference Range Interpretation Comments AGAP (test code = AGAP) 11.3 10.0-20.0 [facility]2017-01-26 19:45:00 Test Item Value Reference Range Interpretation Comments Glucose Lvl (test code = Glucose Lvl) 79 70-99 [facility]2017-01-26 19:45:00 Test Item Value Reference Range Interpretation Comments BUN (test code = BUN) 6 7-22 [facility] HospitalIsqisbyYBTOZIJAEC2747-95-09 19:45:00 Test Item Value Reference Range Interpretation Comments Angle (test code = Angle) 68.2 degrees 53.0-72.0 [place] 159717-01-26 19:45:00 Test Item Value Reference Range Interpretation Comments Max Amp (test code = Max Amp) 65.8 mm 50.0-70.0 [facility] HospitalQjhgveqFPIIQUJEFQ8159-23-56 19:45:00 Test Item Value Reference Range Interpretation Comments K-time (test code = K-time) 1.4 min 1.0-3.0 [facility] HospitalIwbmzypFSRRLYNDOU3424-82-36 19:45:00 Test Item Value Reference Range Interpretation Comments Ly30 (test code = Ly30) 0.5 <=7.5 [place] 159717-01-26 19:45:00 Test Item Value Reference Range Interpretation Comments G-value (test code = G-value) 9.6 4.5-11.0 [place] 159717-01-26 19:45:00 Test Item Value Reference Range Interpretation Comments TEG Data (test code = See Note (07/31/16 1:45 TEG Data) PM) [place] 159717-01-26 19:45:00 Test Item Value Reference Range Interpretation Comments R-time (test code = R-time) 5.6 min 5.0-10.0 [facility] HospitalAqtncfnJXTQXIKQWV1946-12-79 19:45:00 Test Item Value Reference Range Interpretation Comments Coag Index (test code = Coag Index) 1.3 <=3.0 [facility]YkcdlwwNMFSVFLHYX2101-76-66 19:45:00 Test Item Value Reference Range Interpretation Comments TEG Interp (test Thrombelastograph results code = TEG are within reference ranges. Interp) These indicate adequate hemostasis. Note that TEG does not show effect of NSAIDs or P2Y12 inhibitors. CPT:95472 [facility] LUYQAZS6310-52-91 21:29:00 Test Item Value Reference Range Interpretation Comments Troponin-I (test code = Troponin-I) no gt <=0.40 [facility] STWTD1400-70-09 21:29:00 Test Item Value Reference Range Interpretation Comments Lipase Lvl (test code = Lipase Lvl) 145 73-393 [facility] ABRDW2880-59-41 21:29:00 Test Item Value Reference Range Interpretation Comments Globulin (test code = Globulin) 3.7 2.0-4.0 [facility]2016-01-17 21:29:00 Test Item Value Reference Range Interpretation Comments A/G Ratio (test code = A/G Ratio) 1.1 0.7-1.6 [facility]2016-01-17 21:29:00 Test Item Value Reference Range Interpretation Comments AGAP (test code = AGAP) 7.4 10.0-20.0 [facility] OXFHT4557-54-11 21:29:00 Test Item Value Reference Range Interpretation Comments B/C Ratio (test code = B/C Ratio) 9 6-25 [facility] PLHYA2240-99-34 21:29:00 Test Item Value Reference Range Interpretation Comments eGFR (test code = eGFR) 91 [facility]2016-01-17 21:29:00 Test Item Value Reference Range Interpretation Comments Alk Phos (test code = Alk Phos) 71 39-136 [facility] OLLZD8547-56-75 21:29:00 Test Item Value Reference Range Interpretation Comments AST (test code = AST) 20 <=37 [facility]2016-01-17 21:29:00 Test Item Value Reference Range Interpretation Comments Bili Total (test code = Bili Total) 0.3 0.2-1.3 [facility]2016-01-17 21:29:00 Test Item Value Reference Range Interpretation Comments Calcium Lvl (test code = Calcium Lvl) 8.7 8.5-10.5 [facility]2016-01-17 21:29:00 Test Item Value Reference Range Interpretation Comments CO2 (test code = CO2) 31 24-32 [facility]2016-01-17 21:29:00 Test Item Value Reference Range Interpretation Comments Albumin Lvl (test code = Albumin Lvl) 3.9 3.5-5.0 [facility]2016-01-17 21:29:00 Test Item Value Reference Range Interpretation Comments Total Protein (test code = Total 7.6 6.4-8.4 Protein) [facility]2016-01-17 21:29:00 Test Item Value Reference Range Interpretation Comments ALT (test code = ALT) 28 <=65 [facility]2016-01-17 21:29:00 Test Item Value Reference Range Interpretation Comments Chloride Lvl (test code = Chloride Lvl) 102 95-109 [facility]2016-01-17 21:29:00 Test Item Value Reference Range Interpretation Comments Potassium Lvl (test code = Potassium 3.4 3.5-5.1 Lvl) [facility]2016-01-17 21:29:00 Test Item Value Reference Range Interpretation Comments Sodium Lvl (test code = Sodium Lvl) 137 135-145 [facility]2016-01-17 21:29:00 Test Item Value Reference Range Interpretation Comments BUN (test code = BUN) 7 7-22 [facility]2016-01-17 21:29:00 Test Item Value Reference Range Interpretation Comments Glucose Lvl (test code = Glucose Lvl) 86 70-99 [facility]2016-01-17 21:29:00 Test Item Value Reference Range Interpretation Comments Creatinine Lvl (test code = Creatinine 0.80 0.50-1.40 Lvl) [facility] HospitalAynrnpnYHBRJGORYF7634-13-08 21:29:00 Test Item Value Reference Range Interpretation Comments Platelet (test code = Platelet) 269 492-450 [facility] HospitalCmbgsafVYUHXNAXNV8062-73-29 21:29:00 Test Item Value Reference Range Interpretation Comments MCHC (test code = MCHC) 33.2 32.0-36.0 [facility] HospitalJioolorQGFRQDDHSP4731-92-84 21:29:00 Test Item Value Reference Range Interpretation Comments RDW (test code = RDW) 12.9 11.5-14.5 [facility] HospitalPnggdrmDABIHJQEPU5453-99-87 21:29:00 Test Item Value Reference Range Interpretation Comments WBC (test code = WBC) 9.2 3.7-10.4 [facility] HospitalGifdquoRCWMMCPINB4817-32-19 21:29:00 Test Item Value Reference Range Interpretation Comments Hct (test code = Hct) 43.5 36.0-48.0 [facility] HospitalKnhjdcbZKBJNOMYDN0081-18-50 21:29:00 Test Item Value Reference Range Interpretation Comments RBC (test code = RBC) 4.59 4.20-5.40 [facility] HospitalZlyqbufDDGPBMVQPE3771-20-73 21:29:00 Test Item Value Reference Range Interpretation Comments Hgb (test code = Hgb) 14.4 12.0-16.0 [facility] HospitalRfkwlgmAJBMXIAZFR4983-24-64 21:29:00 Test Item Value Reference Range Interpretation Comments MPV (test code = MPV) 7.8 7.4-10.4 [facility] HospitalWrmlxqoRCXNBYDQNQ5601-21-07 21:29:00 Test Item Value Reference Range Interpretation Comments MCV (test code = MCV) 94.7 80.0-98.0 [facility] HospitalIzrwmepRBHVWJDYUL7088-10-69 21:29:00 Test Item Value Reference Range Interpretation Comments MCH (test code = MCH) 31.5 pg 27.0-31.0 [facility] HospitalEqipkkxQBMTKDBAQX5021-38-60 21:29:00 Test Item Value Reference Range Interpretation Comments Segs-Bands # (test code = Segs-Bands #) 6.4 1.5-8.1 [facility] HospitalDaqytqtGDPOQYSYKG9345-23-49 21:29:00 Test Item Value Reference Range Interpretation Comments Monocytes # (test code = Monocytes #) 0.5 <=0.8 [facility] HospitalQvpyqurNXWXQUUHKG5743-31-60 21:29:00 Test Item Value Reference Range Interpretation Comments Lymphocytes # (test code = Lymphocytes 2.3 1.0-5.5 #) [facility] HospitalNxwhtjpEGOSQPXIWI0528-31-87 21:29:00 Test Item Value Reference Range Interpretation Comments Monocytes (test code = Monocytes) 5.8 2.0-12.0 [facility] LbwzekhPADOPBCEGN0556-96-65 21:29:00 Test Item Value Reference Range Interpretation Comments Eosinophils (test code = Eosinophils) 0.1 <=4.0 [facility] HospitalTcexasaUIBRBVGFVQ8577-96-11 21:29:00 Test Item Value Reference Range Interpretation Comments Basophils (test code = Basophils) 0.2 <=1.0 [facility] ZnozyidQKXPYOBHUO7607-20-25 21:29:00 Test Item Value Reference Range Interpretation Comments Eosinophils # (test code = Eosinophils 0.0 <=0.5 #) [facility] HospitalYbymermYINMTRIOZL5171-70-90 21:29:00 Test Item Value Reference Range Interpretation Comments Basophils # (test code = Basophils #) 0.0 <=0.2 [facility] HospitalLjtsdtuOOLFCLLEKI4921-17-41 21:29:00 Test Item Value Reference Range Interpretation Comments Lymphocytes (test code = Lymphocytes) 24.6 20.0-40.0 [facility] HospitalVdcolbgFBPXXEACFY2318-05-06 21:29:00 Test Item Value Reference Range Interpretation Comments Segs (test code = Segs) 69.3 45.0-75.0 [facility] AND IOBZT4453-26-75 21:29:00 Test Item Value Reference Range Interpretation Comments UA WBC (test code = UA None Seen (07/22/15 3:29 WBC) PM) [facility] AND DNUEE4136-05-84 21:29:00 Test Item Value Reference Range Interpretation Comments UA Sq Epi (test code = UA Sq Epi) Few /LPF [facility] AND NLXND3295-90-89 21:29:00 Test Item Value Reference Range Interpretation Comments UA Bacteria (test code = UA Occasional /HPF Bacteria) [facility] AND [id number] 21:29:00 Test Item Value Reference Range Interpretation Comments UA RBC (test code = UA None Seen (07/22/15 3:29 <=2 RBC) PM) [facility] AND [id number] 21:29:00 Test Item Value Reference Range Interpretation Comments UA Mucus (test code = None Seen (1/17/16 UA Mucus) 3:29 PM) [facility] AND [id number] 21:29:00 Test Item Value Reference Range Interpretation Comments UA Leuk Est (test Negative (07/22/15 3:29 code = UA Leuk Est) PM) [facility] AND [id number] 21:29:00 Test Item Value Reference Range Interpretation Comments UA Blood (test code = Moderate *ABN*(07/22/15 UA Blood) 3:29 PM) [facility] AND [id number] 21:29:00 Test Item Value Reference Range Interpretation Comments UA Bili (test code = Negative *NA*(07/22/15 UA Bili) 3:29 PM) [facility] AND [id number] 21:29:00 Test Item Value Reference Range Interpretation Comments UA Nitrite (test code Negative (07/22/15 3:29 = UA Nitrite) PM) [facility] AND [id number] 21:29:00 Test Item Value Reference Range Interpretation Comments UA Urobilinogen (test code = UA 0.2 0.1-1.0 Urobilinogen) [facility] AND [id number] 21:29:00 Test Item Value Reference Range Interpretation Comments UA Ketones (test code = UA Ketones) 15 mg/dL [facility] AND [id number] 21:29:00 Test Item Value Reference Range Interpretation Comments UA Glucose (test code Negative (07/22/15 3:29 = UA Glucose) PM) [facility] AND [id number] 21:29:00 Test Item Value Reference Range Interpretation Comments UA Spec Grav (test code = UA Spec 1.015 1 Grav) [facility] AND [id number] 21:29:00 Test Item Value Reference Range Interpretation Comments UA Protein (test code Negative (07/22/15 3:29 = UA Protein) PM) [facility] AND [id number] 21:29:00 Test Item Value Reference Range Interpretation Comments UA pH (test code = UA pH) 5.5 1 5.0-8.0 [facility] AND [id number] 21:29:00 Test Item Value Reference Range Interpretation Comments UA Turbidity (test code = Clear (07/22/15 3:29 UA Turbidity) PM) [facility] AND [id number] 21:29:00 Test Item Value Reference Range Interpretation Comments UA Color (test code = Yellow *NA*(07/22/15 UA Color) 3:29 PM) Luis Jimenez
[2023-05-21] MEDS ORDERED: ACETAMINOPHEN 325 MG TABLET ONE (12:22)
[2023-05-21 12:36] LABS: MCV 94.8 fL (80-100); MPV 8.5 fL (7.6-11.3); Platelets 187 thou/uL (152-406); RBC Red Blood Cell Count 4.12 M/uL (3.86-4.86)
[2023-05-21 12:45] LABS: Potassium 3.8 mEq/L (3.5-5.1)
[2023-05-21 12:47] LABS: SARS-CoV-2 Antigen Rapid Res Negative (Negative)
--- NOTE | 2023-05-21 13:10 | RAD REPORT ---
[facility]49 pm CLINICAL HISTORY: COUGH COMPARISON: No comparisons TECHNIQUE: Portable AP view of the chest. FINDINGS: The lungs are clear. No pneumothorax or effusion. The cardiomediastinal contours are unre markable. IMPRESSION: No acute cardiopulmonary process.
--- NOTE | 2023-05-21 13:17 | EDPHYS ---
Physician Documentation [facility] Name: Jennifer Cisneros Age: 67 yrs Sex: Female : 1955 Arrival Date: 05/21/2023 Time: 11:26 Bed 10 Private MD: ED Physician Nain Duran HPI: 05/21 11:56 This 67 yrs old Black Female presents to ER via Ambulatory with complaints of Flu jh7 Symptoms, Flank Pain. 11:56 Onset: The symptoms/episode began/occurred 2 day(s) ago. Associated signs and symptoms: jh7 Pertinent positives: abdominal pain, body aches, congestion, cough, Pertinent negatives: diarrhea, dysuria, fever, vomiting. Historical: - Allergies: 11:50 No Known Allergies; ph - Home Meds: 11:50 gabapentin oral [Active]; Simvastatin Oral [Active]; ph - PMHx: 11:50 Diverticulitis; hiatal hernia; Hypercholesterolemia; ph - PSHx: 11:51 Appendectomy; Cholecystectomy; ph - Immunization history:: Adult Immunizations unknown. - Social history:: Smoking status: Patient denies any tobacco usage or history of. ROS: 11:56 Eyes: Negative for injury, pain, redness, and discharge, Neck: Negative for injury, jh7 pain, and swelling, Cardiovascular: Negative for chest pain, palpitations, and edema, Back: Negative for injury and pain, MS/Extremity: Negative for injury and deformity, Skin: Negative for injury, rash, and discoloration, Neuro: Negative for headache, weakness, numbness, tingling, and seizure, 11:56 Constitutional: Positive for body aches, chills, Negative for fever, 11:56 ENT: Positive for rhinorrhea, sinus congestion, Negative for sore throat, 11:56 Respiratory: Positive for cough, Negative for shortness of breath, 11:56 Abdomen/GI: Positive for R hip/RLQ pain, Negative for nausea, vomiting, and diarrhea, constipation, abdominal distension, black/tarry stool, rectal pain, rectal bleeding, 11:56 All other systems are negative, Exam: 11:56 Head/Face: Normocephalic, atraumatic. Eyes: Pupils equal round and reactive to light, jh7 extra-ocular motions intact. Lids and lashes normal. Conjunctiva and sclera are non-icteric and not injected. Cornea within normal limits. Periorbital areas with no swelling, redness, or edema. ENT: Nares patent. No nasal discharge, no septal abnormalities noted. Tympanic membranes are normal and external auditory canals are clear. Oropharynx with no redness, swelling, or masses, exudates, or evidence of obstruction, uvula midline. Mucous membranes moist. Neck: Trachea midline, no thyromegaly or masses palpated, and no cervical lymphadenopathy. Supple, full range of motion without nuchal rigidity, or vertebral point tenderness. No Meningismus. Cardiovascular: Regular rate and rhythm with a normal S1 and S2. No gallops, murmurs, or rubs. Normal PMI, no JVD. No pulse deficits. Respiratory: Lungs have equal breath sounds bilaterally, clear to auscultation and percussion. No rales, rhonchi or wheezes noted. No increased work of breathing, no retractions or nasal flaring. Abdomen/GI: Soft, non-tender, with normal bowel sounds. No distension or tympany. No guarding or rebound. No evidence of tenderness throughout. Skin: Warm, dry with normal turgor. Normal color with no rashes, no lesions, and no evidence of cellulitis. MS/ Extremity: Pulses equal, no cyanosis. Neurovascular intact. Full, normal range of motion. Neuro: Awake and alert, GCS 15, oriented to person, place, time, and situation. Motor strength 5/5 in all extremities. Sensory grossly intact. Normal gait. 11:56 Constitutional: The patient appears alert, awake, tired appearing Vital Signs: 11:52 BP 128 / 74; Pulse 79; Resp 18; Temp 97.9(O); Pulse Ox 100% on R/A; Weight 58.97 kg; ph Height 5 ft. 4 in. ; 11:52 Body Mass Index 22.31 (58.97 kg, 162.56 cm) ph MDM: 11:41 Patient medically screened. [facility] 13:15 Differential diagnosis: viral Infection, bacterial infection, URI. Data reviewed: vital [facility] signs, nurses notes, lab test result(s), radiologic studies, plain films. Counseling: I had a detailed discussion with the patient and/or guardian regarding the historical points, exam findings, and any diagnostic results supporting the discharge/admit diagnosis, to return to the emergency department if symptoms worsen or persist or if there are any questions or concerns that arise at home. ED course: Patient remained hemodynamically stable throughout the ER visit. Reviewed all labs and imaging. No acute abdomen appreciated on exam. Agreed to provide prescription medication for cough and advised the patient to increase fluid intake and rest until symptoms improve.. 05/21 12:01 Order name: Flu; Complete Time: 13: [facility] 05/21 12:01 Order name: SARS RAPID; Complete Time: 13: [facility] 05/21 12:07 Order name: CBC w/o diff; Complete Time: 13: [facility] 05/21 12:07 Order name: BMP; Complete Time: 13: [facility] 05/21 12:07 Order name: XRAY Chest (1 view); Complete Time: 13:[address] [facility] Administered Medications: No medications were administered Disposition: 13:41 Co-signature as Attending Physician, Nain Duran MD I agree with the assessment and kdr plan of care. Disposition Summary: 05/21/23 13:17 Discharge Ordered Notes: Location: Home [facility] Problem: new [facility] Symptoms: are unchanged [facility] Condition: Stable [facility] Diagnosis - Flu-like illness [facility] Followup: [facility] - With: Private Physician - When: 2 - 3 days - Reason: Recheck today's complaints Discharge Instructions: - Discharge Summary Sheet [facility] - Upper Respiratory Infection, Adult [facility] - Viral Illness, Adult [facility] Forms: - Medication Reconciliation Form [facility] - Thank You Letter [facility] - Patient Portal Instructions [facility] - Leadership Thank You Letter [facility] Prescriptions: - Tessalon Perles 100 mg Oral Capsule - take 1 capsule ORAL route every 8 hours As needed; 15 capsule; Refills: 0, [facility] Product Selection Permitted Signatures: Dispatcher [employer] Nain Dong MD MD kdr Hall, Patricia, RN RN ph Gnia Pittman FNP FNP [facility]
--- NOTE | 2023-05-21 13:17 | ER ---
Nurse's Notes [facility] Name: Jennifer Cisneros Age: 67 yrs Sex: Female : 1955 Arrival Date: 05/21/2023 Time: 11:26 Bed 10 Private MD: Diagnosis: Flu-like illness Presentation: 05/21 11:56 Chief complaint: Patient states: Cough, congestion, headache, fatigue, and sore throat ph since Thursday, also c/o pain to RLQ, R hip area, denies N/V/D or urinary symptoms, also denies fever. Coronavirus screen: Vaccine status: Patient reports being unvaccinated. Ebola Screen: No symptoms or risks identified at this time. Initial Sepsis Screen: Does the patient meet any 2 criteria? No. Patient's initial sepsis screen is negative. Does the patient have a suspected source of infection? No. Patient's initial sepsis screen is negative. Risk Assessment: Do you want to hurt yourself or someone else? Patient reports no desire to harm self or others. Onset of symptoms was May 21, 2023. 11:56 Method Of Arrival: Ambulatory ph 11:56 Acuity: RITESH 3 ph Historical: - Allergies: 11:50 No Known Allergies; ph - Home Meds: 11:50 gabapentin oral [Active]; Simvastatin Oral [Active]; ph - PMHx: 11:50 Diverticulitis; hiatal hernia; Hypercholesterolemia; ph - PSHx: 11:51 Appendectomy; Cholecystectomy; ph - Immunization history:: Adult Immunizations unknown. - Social history:: Smoking status: Patient denies any tobacco usage or history of. Screenin:14 [facility] ED Fall Risk Assessment (Adult) History of falling in the last 3 months, ld1 including since admission No falls in past 3 months (0 pts). Abuse screen: Denies threats or abuse. Denies injuries from another. Nutritional screening: No deficits noted. Tuberculosis screening: No symptoms or risk factors identified. Assessment: 12:14 General: Appears in no apparent distress. comfortable, Behavior is calm, cooperative, ld1 appropriate for age. Pain: Complains of pain in right iliac crest and right hip Pain does not radiate. Pain currently is 6 out of 10 on a pain scale. Quality of pain is described as throbbing. Neuro: Level of Consciousness is awake, alert, obeys commands, Oriented to person, place, time, situation. Cardiovascular: Capillary refill < 3 seconds Patient's skin is warm and dry. Respiratory: Airway is patent Respiratory effort is even, unlabored. GI: Abdomen is flat, non-distended. : No signs and/or symptoms were reported regarding the genitourinary system. EENT: No signs and/or symptoms were reported regarding the EENT system. Derm: No signs and/or symptoms reported regarding the dermatologic system. Musculoskeletal: No signs and/or symptoms reported regarding the musculoskeletal system. Vital Signs: 11:52 BP 128 / 74; Pulse 79; Resp 18; Temp 97.9(O); Pulse Ox 100% on R/A; Weight 58.97 kg; ph Height 5 ft. 4 in. ; 11:52 Body Mass Index 22.31 (58.97 kg, 162.56 cm) ph ED Course: 11:28 Patient arrived in ED. im 11:41 [facility] Pittman [facility]NP [facility] 11:41 Nain Duran MD is Attending Physician. jh7 11:59 Triage completed. ph 11:59 Arm band placed on Patient placed in an exam room. ph 12:11 SARS RAPID Sent. ld1 12:11 Flu Sent. ld1 12:14 Anahi Bejarano, RN is Primary Nurse. ld1 12:14 Patient has correct armband on for positive identification. Placed in gown. Bed in low ld1 position. Call light in reach. Side rails up X2. Pulse ox on. NIBP on. Door closed. Noise minimized. Warm blanket given. 12:14 No provider procedures requiring assistance completed. ld1 12:15 Provided Education on:. ld1 12:50 XRAY Chest (1 view) In Process Unspecified. EDMS 13:24 IV discontinued, intact, bleeding controlled, No redness/swelling at site. ld1 Administered Medications: No medications were administered Medication: 12:15 VIS not applicable for this client. ld1 Outcome: 13:17 Discharge ordered by . 7 13:24 Discharged to home ambulatory, ld1 13:24 Condition: stable 13:24 Discharge instructions given to patient, Instructed on discharge instructions, follow up and referral plans. medication usage, Demonstrated understanding of instructions, follow-up care, medications, Prescriptions given X 1, 13:25 Patient left the ED. ld1 Signatures: Dispatcher [employer] Shivani Steen RN RN [facility] HospitalAnahi barbosa RN RN ld1 Gina Pittman FNP FNP jh7 Ashlie Gonzalez
== END 2023-05-21 13:25 | disposition home or self-care (01) ==
LOC: ER 11:26
DX: J10.1 Influenza due to other identified influenza virus with other respiratory manifestations (principal); Z11.52 Encounter for screening for COVID-19; R10.31 Right lower quadrant pain
CPT/HCPCS: 36415; 71045; 80048; 85027; 87804; 87811; 99283

== ENCOUNTER 2023-12-14 08:30 | Emergency (ER) | payer OTHER ==
[2023-12-14] MEDS ORDERED: KETOROLAC 30 MG/ML INJ ONE (08:56)
[2023-12-14] MEDS ORDERED: NA CHLORIDE 0.9% 500 ML ONE (08:56)
[2023-12-14] MEDS ORDERED: ONDANSETRON 4 MG/2 ML VIAL ONE (08:56)
[2023-12-14 09:22] LABS: Absolute Eosinophils 0.1 K/uL (0-0.5); Absolute Lymphocytes (CBC) 1.5 K/uL (0.7-4.9); Absolute Monocytes 0.5 K/uL (0.1-1.3); Absolute Neutrophil 3.6 K/uL (1.8-8.0); Basophils % 0.5 % (0-1.3); Eosinophils % 1.5 % (0-4.4); Hematocrit 36.5 % (36.0-45.0); Hemoglobin 12.1 g/dL (12.0-15.0); Lymphocytes % 26.9 % (15.3-44.8); MCH 31.4 pg (27.0-35.0); MCHC 33.2 g/dL (32.0-36.0); MCV 94.5 fL (80-100); MPV 7.7 fL (7.6-11.3); Monocytes % 8.1 % (3.3-12.3); Nucleated Red Blood Cells % 0.1 % (0-0); Platelets 227 thou/uL (152-406); RBC Red Blood Cell Count 3.86 M/uL (3.86-4.86); Red Cell Distribution Width 13.4 % (12.1-15.2)
[2023-12-14 09:32] LABS: ALT/SGPT 21 U/L (13-56); AST/SGOT 12 U/L (15-37); Albumin 3.6 g/dL (3.4-5.0); Albumin/Globulin Ratio 1.1 (1.1-1.8); Alkaline Phosphatase 96 U/L (45-117); Anion Gap 4.8 mEq/L (5.0-15.0); BUN Blood Urea Nitrogen 12 mg/dL (7-18); Bicarbonate 31 mEq/L (21-32); Bilirubin Total 0.3 mg/dL (0.2-1.0); Globulin 3.3 g/dL (2.3-3.5); Glomerular Filtration Rate 86 ml/min (=/>90); Glucose Level 98 mg/dL (74-106); Lipase 35 U/L (13-75); Magnesium 2.1 mg/dL (1.6-2.4); Potassium 3.8 mEq/L (3.5-5.1); Protein, Total 6.9 g/dL (6.4-8.2); Sodium Level 139 mEq/L (136-145); Troponin High Sensitivity 3.6 pg/mL (<58.9)
[2023-12-14 09:35] LABS: Bilirubin Direct < 0.2 mg/dL (0-0.2); Bilirubin Indirect, Calculated 0.1 mg/dL (0.2-0.8)
--- NOTE | 2023-12-14 09:35 | RAD REPORT ---
EXAM DESCRIPTION: RAD - Chest Single View - 12/14/2023 9:29 am CLINICAL HISTORY: BACK PAIN Chest pain. COMPARISON: Chest Single View dated 05/21/2023 FINDINGS: Portable technique limits examination quality. The lungs are grossly clear. The heart is normal in size. No displaced fractures. IMPRESSION: No acute intrathoracic process suspected.
[2023-12-14 09:40] LABS: PT Prothrombin Time 11.1 SECONDS (9.5-12.5); Protime INR 1.01
--- NOTE | 2023-12-14 10:27 | RAD REPORT ---
EXAM DESCRIPTION: CTAbdomen Pelvis W Contrast - 12/14/2023 10:13 am CLINICAL HISTORY: Abdominal pain. right mid back pain;Abd pain COMPARISON: Abdomen Pelvis W Contrast dated 12/02/2021; CT ABD PELVIS W CONTRAST dated 06/14/2014 TECHNIQUE: Biphasic CT imaging of the abdomen and pelvis was performed with 100 ml non-ionic IV cont rast. All CT scans are performed using dose optimization technique as appropriate and may include automated exposure control or mA/KV adjustment according to patient size. FINDINGS: The lung bases are clear. The liver demonstrates diffuse fatty infiltration. Cholecystectomy clips. Mild biliary dilatation see n intrahepatic and pancreatic duct. Common bile duct is also mildly prominent. Vague 7-8 mm soft tiss ue structure seen distal common bile duct. Spleen, pancreas, adrenal glands and kidneys are within no rmal limits. No bowel obstruction, free air, free fluid or abscess. Moderate stool is present throughout the colon with fecalization of distal small bowel loops. Nonvisualized appendix. No evidence of significant l ymphadenopathy. No suspicious bony findings. IMPRESSION: Cholecystectomy. Mild intrahepatic, extrahepatic and pancreatic ductal dilatation with v ague 7-8 mm soft tissue structure distal common bile duct. This could indicate choledocholithiasis. F ollowup nonemergent MRCP would be suggested. Mild diffuse fatty liver. Prominent stool throughout the colon with fecalization of the distal small bowel loops.
--- NOTE | 2023-12-14 10:57 | ER ---
Nurse's Notes [facility] Name: Jennifer Cisneros Age: 68 yrs Sex: Female : 1955 Arrival Date: 12/14/2023 Time: 08:30 Bed 5 Private MD: Diagnosis: Dorsalgia, unspecified;Nausea;Abnormal findings on diagnostic imaging of liver and biliary tract Presentation: 12/13 08:40 Chief complaint: Patient states: R sided back pain started at 0430 AM. RAMÍREZ, nausea ll1 off/on for 2 days. Slight cough/congestion. No known fever. Coronavirus screen: Client denies travel out of the [place] in the last 14 days. congestion, cough unrelated to allergies, fatigue, nausea, Client presents with at least one sign or symptom that may indicate coronavirus-19. Standard/surgical mask placed on the client. Ebola Screen: Patient denies travel to an Ebola-affected area in the 21 days before illness onset. Initial Sepsis Screen: Does the patient meet any 2 criteria? No. Patient's initial sepsis screen is negative. Does the patient have a suspected source of infection? No. Patient's initial sepsis screen is negative. Risk Assessment: Do you want to hurt yourself or someone else? Patient reports no desire to harm self or others. Onset of symptoms was December 13, 2023. 08:40 Method Of Arrival: Ambulatory ll1 08:40 Acuity: RITESH 3 ll1 Triage Assessment: 08:42 General: Appears uncomfortable, Behavior is calm, cooperative, appropriate for age. ll1 Pain: Complains of pain in R back Pain currently is 8 out of 10 on a pain scale. Quality of pain is described as aching. EENT: Reports nasal congestion. Neuro: Reports headache. Respiratory: Reports cough that is. GI: Reports nausea. Musculoskeletal: Reports pain in R side of back. Historical: - Allergies: 08:39 Tylenol-Codeine #3; ll1 - PMHx: 08:39 Diverticulitis; hiatal hernia; Hypercholesterolemia; ll1 - PSHx: 08:39 Appendectomy; Cholecystectomy; ll1 - Immunization history:: Adult Immunizations up to date. - Infectious Disease History:: Denies. - Social history:: Smoking status: Patient denies any tobacco usage or history of. Screenin:30 [facility] ED Fall Risk Assessment (Adult) History of falling in the last 3 months, db including since admission No falls in past 3 months (0 pts) Confusion or Disorientation No (0 pts) Intoxicated or Sedated No (0 pts) Impaired Gait No (0 pts) Mobility Assist Device Used No (0 pt) Altered Elimination No (0 pt) Score/Fall Risk Level 0 - 2 = Low Risk Oriented to surroundings, Maintained a safe environment. Abuse screen: Denies threats or abuse. Denies injuries from another. Nutritional screening: No deficits noted. Tuberculosis screening: No symptoms or risk factors identified. Assessment: 09:30 Reassessment: Patient appears in no apparent distress at this time. Patient and/or db family updated on plan of care and expected duration. Pain level reassessed. Patient is alert, oriented x 3, equal unlabored respirations, skin warm/dry/pink. General: Appears in no apparent distress. comfortable, Behavior is calm, cooperative. Pain: Complains of pain in abdomen. Neuro: Level of Consciousness is awake, alert, obeys commands, Oriented to person, place, time, situation. Respiratory: Airway is patent Respiratory effort is even, unlabored, Respiratory pattern is regular, symmetrical. GI: Abdomen is flat, non-distended. 11:00 Reassessment: Patient appears in no apparent distress at this time. Patient and/or db family updated on plan of care and expected duration. Pain level reassessed. Patient is alert, oriented x 3, equal unlabored respirations, skin warm/dry/pink. TOLERATED PO. Vital Signs: 08:40 BP 105 / 71; Pulse 60; Resp 17; Temp 97.2; Pulse Ox 100% on R/A; Weight 58.97 kg; ll1 Height 5 ft. 3 in. ; Pain 8/10; 09:33 BP 111 / 75; Pulse 77; Resp 18; Pulse Ox 100% on R/A; db 11:05 BP 123 / 55; Pulse 68; Resp 18; Pulse Ox 100% on R/A; db 08:40 Body Mass Index 23.03 (58.97 kg, 160.02 cm) ll1 08:40 Pain Scale: Adult ll1 ED Course: 08:33 Patient arrived in ED. mr 08:33 Adrian Quick PA is PHCP. cp 08:33 Marvin Duran MD is Attending Physician. cp 08:35 Yue Arenas, RN is Primary Nurse. db 08:39 Arm band placed on Patient placed in an exam room, on a stretcher. ll1 08:42 Triage completed. ll1 09:31 XRAY Chest (1 view) In Process Unspecified. EDMS 09:33 Inserted saline lock: 22 gauge in right hand, using aseptic technique. Blood collected. db 10:14 CT Abd/Pelvis - IV Contrast Only In Process Unspecified. EDMS 10:55 Lewis Garcia MD is Referral Physician. cp 11:04 Patient has correct armband on for positive identification. Bed in low position. Call db light in reach. Side rails up X 1. Client placed on continuous cardiac and pulse oximetry monitoring. NIBP monitoring applied. air sampling and monitoring on. Pulse ox on. NIBP on. Warm blanket given. 11:22 Provided Education on: DISCHARGE. db 11:22 No provider procedures requiring assistance completed. IV discontinued, intact, db bleeding controlled, No redness/swelling at site. Administered Medications: 08:47 Drug: Ketorolac IVP 15 mg IVP once Route: IVP; Site: right hand; db 11:21 Follow up: Response: No adverse reaction db 08:47 Drug: Ondansetron IVP 4 mg IVP once; over 2 minutes Route: IVP; Site: right hand; db 11:21 Follow up: Response: No adverse reaction db 08:47 Drug: NS 0.9% IV 500 ml IV at 250 ml/hr continuous Route: IV; Rate: 250 ml/hr; Site: db right hand; 11:21 Follow up: Response: No adverse reaction; IV Status: Completed infusion; IV Intake: db 1000ml Medication: 09:30 VIS not applicable for this client. db Intake: 11:21 IV: 1000ml; Total: 1000ml. db Outcome: 10:56 Discharge ordered by MD. cp 11:22 Discharged to home ambulatory, db 11:22 Condition: stable 11:22 Discharge instructions given to patient, Instructed on discharge instructions, follow up and referral plans. Prescriptions given X 2, 11:24 Patient left the ED. db Signatures: Dispatcher [employer] EDAR Amina Vargas, Reg Reg mr Adrian Quick PA PA cp Lewis, Lynsay, RN RN ll1 Yue Arenas, RN RN db
--- NOTE | 2023-12-14 10:57 | EDPHYS ---
Physician Documentation [facility] Name: Jennifer Cisneros Age: 68 yrs Sex: Female : 1955 Arrival Date: 12/14/2023 Time: 08:30 Bed 5 Private MD: ED Physician Marvin Duran HPI: 12/13 10:35 This 68 yrs old Black Female presents to ER via Ambulatory with complaints of Back Pain.cp 10:35 The patient presents with pain that is acute, with no known mechanism of injury. cp 10:35 The symptoms are located in the right subscapular area and right mid back. cp 10:35 Onset: The symptoms/episode began/occurred this morning. cp 10:35 Associated signs and symptoms: Pertinent positives: abdominal pain, nausea, slight cp cough, Pertinent negatives: constipation, dysuria, fever, weakness, diarrhea. The problem was sustained from unknown cause. Historical: - Allergies: 08:39 Tylenol-Codeine #3; ll1 - PMHx: 08:39 Diverticulitis; hiatal hernia; Hypercholesterolemia; ll1 - PSHx: 08:39 Appendectomy; Cholecystectomy; ll1 - Immunization history:: Adult Immunizations up to date. - Infectious Disease History:: Denies. - Social history:: Smoking status: Patient denies any tobacco usage or history of. ROS: 10:40 Constitutional: Negative for body aches, chills, fever, poor PO intake, cp 10:40 Eyes: Negative for injury, pain, redness, and discharge, cp 10:40 ENT: Negative for drainage from ear(s), ear pain, sore throat, difficulty swallowing, difficulty handling secretions, 10:40 Cardiovascular: Negative for chest pain, edema, palpitations, 10:40 Respiratory: Negative for cough, shortness of breath, wheezing, 10:40 Abdomen/GI: Negative for abdominal pain, nausea, vomiting, and diarrhea, 10:40 Back: Positive for pain at rest, pain with movement, of the right subscapular area and right mid back, Negative for injury or acute deformity, decreased range of motion, 10:40 : Negative for urinary symptoms, 10:40 Skin: Negative for cellulitis, rash, 10:40 Neuro: Negative for altered mental status, dizziness, headache, numbness, syncope, weakness, 10:40 All other systems are negative, Exam: 09:12 ECG was reviewed by the Attending Physician. cp 10:45 Constitutional: The patient appears in no acute distress, alert, awake, cp non-diaphoretic, non-toxic, well developed, well nourished, uncomfortable, 10:45 Head/Face: Normocephalic, atraumatic. cp 10:45 Eyes: Periorbital structures: appear normal, Conjunctiva: normal, no exudate, no injection, Sclera: no appreciated abnormality, Lids and lashes: appear normal, bilaterally, 10:45 ENT: External ear(s): are unremarkable, Nose: is normal, Mouth: Lips: moist, Oral mucosa: pink and intact, moist, Posterior pharynx: is normal, airway is patent, no erythema, no exudate, 10:45 Neck: ROM/movement: is normal, is supple, without pain, no range of motions limitations, no nuchal rigidity, 10:45 Chest/axilla: Inspection: normal, Palpation: is normal, no crepitus, no tenderness, 10:45 Cardiovascular: Rate: normal, Rhythm: regular, Edema: is not appreciated, JVD: is not appreciated, 10:45 Respiratory: the patient does not display signs of respiratory distress, Respirations: normal, no use of accessory muscles, no retractions, labored breathing, is not present, Breath sounds: are clear throughout, no decreased breath sounds, no stridor, no wheezing, 10:45 Abdomen/GI: Inspection: abdomen appears normal, Bowel sounds: active, all quadrants, Palpation: abdomen is soft and non-tender, in all quadrants, 10:45 Back: pain, that is moderate, of the right subscapular area and right mid back, ROM is painful, with all movement, vertebral tenderness, is not appreciated, 10:45 Skin: cellulitis, is not appreciated, no rash present. 10:45 Neuro: Orientation: to person, place \T\ time. Mentation: is normal, Motor: moves all fours, strength is normal, Sensation: is normal, Gait: is steady, Vital Signs: 08:40 BP 105 / 71; Pulse 60; Resp 17; Temp 97.2; Pulse Ox 100% on R/A; Weight 58.97 kg; ll1 Height 5 ft. 3 in. ; Pain 8/10; 09:33 BP 111 / 75; Pulse 77; Resp 18; Pulse Ox 100% on R/A; db 11:05 BP 123 / 55; Pulse 68; Resp 18; Pulse Ox 100% on R/A; db 08:40 Body Mass Index 23.03 (58.97 kg, 160.02 cm) ll1 08:40 Pain Scale: Adult ll1 MDM: 08:41 Patient medically screened. cp 10:55 Data reviewed: vital signs, nurses notes, lab test result(s), EKG, radiologic studies, cp CT scan, plain films, and as a result, I will discharge patient. 10:55 Differential diagnosis: Ureterolithiasis vertebral fracture, choledocholithiasis, cp pancreatitis, pulmonary embolism, pneumonia. I considered the following discharge prescriptions or medication management in the emergency department Medications were administered in the Emergency Department. See MAR. Independent interpretation of the following test(s) in the Emergency Department EKG: See my EKG interpretation above. Counseling: I had a detailed discussion with the patient and/or guardian regarding the historical points, exam findings, and any diagnostic results supporting the discharge/admit diagnosis, lab results, radiology results, to return to the emergency department if symptoms worsen or persist or if there are any questions or concerns that arise at home. Response to treatment: the patient's symptoms have markedly improved after treatment, and as a result, I will discharge patient. 12/13 08:43 Order name: Basic Metabolic Panel; Complete Time: 09:37 cp 12/13 09:37 Interpretation: Normal except: ANION GAP 4.8; GFR 86. 12/13 08:43 Order name: CBC with Diff; Complete Time: 09:32 cp 12/13 09:32 Interpretation: Reviewed. 12/13 08:43 Order name: LFT's; Complete Time: 09:37 cp 12/13 09:37 Interpretation: Normal except: AST 12; IBILI, CALC 0.1. 12/13 08:43 Order name: Magnesium; Complete Time: 09:37 cp 12/13 08:43 Order name: PT-INR; Complete Time: 10:30 cp 12/13 08:43 Order name: Troponin HS; Complete Time: 09:37 cp 12/13 08:43 Order name: Lipase; Complete Time: 09:37 cp 12/13 10:34 Interpretation: Reviewed. 12/13 08:43 Order name: Urinalysis W/Microscopic cp 12/13 08:43 Order name: XRAY Chest (1 view); Complete Time: 09:37 cp 12/13 09:38 Order name: CT Abd/Pelvis - IV Contrast Only; Complete Time: 10:30 cp 12/13 10:36 Interpretation: Report reviewed. cp 12/13 08:43 Order name: EKG; Complete Time: 08:43 cp 12/13 08:43 Order name: Cardiac monitoring; Complete Time: 09:09 cp 12/13 08:43 Order name: EKG - Nurse/Tech; Complete Time: 09:09 cp 12/13 08:43 Order name: IV Saline Lock; Complete Time: 09:09 cp 12/13 08:43 Order name: Labs collected and sent; Complete Time: 09: cp 12/13 08:43 Order name: O2 Per Protocol; Complete Time: 09:10 cp 12/13 08:43 Order name: O2 Sat Monitoring; Complete Time: 09:10 cp 12/13 10:36 Order name: PO challenge; Complete Time: 11:01 cp EC:12 Rate is 69 beats/min. Rhythm is regular. FL interval is normal. QRS interval is normal. cp QT interval is normal. T waves are Inverted in lead aVR. Interpreted by me. Reviewed by me. Administered Medications: 08:47 Drug: Ketorolac IVP 15 mg IVP once Route: IVP; Site: right hand; db 11:21 Follow up: Response: No adverse reaction db 08:47 Drug: Ondansetron IVP 4 mg IVP once; over 2 minutes Route: IVP; Site: right hand; db 11:21 Follow up: Response: No adverse reaction db 08:47 Drug: NS 0.9% IV 500 ml IV at 250 ml/hr continuous Route: IV; Rate: 250 ml/hr; Site: db right hand; 11:21 Follow up: Response: No adverse reaction; IV Status: Completed infusion; IV Intake: db 1000ml Disposition Summary: 12/14/23 10:56 Discharge Ordered Notes: Location: Home cp Problem: new cp Symptoms: have improved cp Condition: Stable cp Diagnosis - Dorsalgia, unspecified cp - Nausea cp - Abnormal findings on diagnostic imaging of liver and biliary tract cp Followup: cp - With: Lewis Garcia MD - When: 2 - 3 days - Reason: Recheck today's complaints Discharge Instructions: - Discharge Summary Sheet cp - Acute Back Pain, Adult cp - Nausea, Adult cp Forms: - Medication Reconciliation Form cp - Antibiotic Education cp - Prescription Opioid Use cp - Patient Portal Instructions cp - Leadership Thank You Letter cp Prescriptions: - diclofenac sodium 3 % Topical gel - apply 1 application TOPICAL route every 12 hours As needed; 45 gram tube; cp Refills: 0, Product Selection Permitted - Zofran 4 mg Oral Tablet - take 1 tablet ORAL route every 12 hours As needed; 20 tablet; Refills: 0, cp Product Selection Permitted Signatures: Dispatcher [employer] EDMS Adrian Quick PA PA cp Sherri Lopez, RN RN ll1 Yue Arenas, RN RN db Corrections: (The following items were deleted from the chart) 08:43 08:43 BASIC METABOLIC PANEL+C.LAB.BRZ ordered. EDMS EDMS 08:43 08:43 CBC+H.LAB.BRZ ordered. EDMS EDMS 08:43 08:43 HEPATIC FUNCTION+C.LAB.BRZ ordered. EDMS EDMS 08:43 08:43 MAGNESIUM+C.LAB.BRZ ordered. EDMS EDMS 08:43 08:43 PROTIME (+INR)+COAG.LAB.BRZ ordered. EDMS EDMS 08:43 08:43 Troponin High Sensitivity+C.LAB.BRZ ordered. EDMS EDMS 08:43 08:43 LIPASE+C.LAB.BRZ ordered. EDMS EDMS 08:43 08:43 Urinalysis W/Microscopic+U.LAB.BRZ ordered. EDMS EDMS 09:38 09:38 Abdomen Pelvis W Con+CT.RAD.BRZ ordered. EDMS EDMS
[2023-12-14 11:36] LABS: Specific Gravity > 1.030 (1.005-1.030); Sqamous Epithelial None Seen /HPF (None Seen); Urine Bacteria None Seen /HPF (<20); Urine Bilirubin NEGATIVE (Negative); Urine Blood Negative (Negative); Urine Clarity Clear (Clear); Urine Color Colorless (Yellow); Urine Culture Reflex Order NOT NEEDED; Urine Glucose NEGATIVE (Negative); Urine Ketones NEGATIVE (Negative); Urine Micro Reflex YN NO BILL MICROSCOPIC; Urine Nitrite NEGATIVE (Negative); Urine Protein NEGATIVE (Negative); Urine RBC <5 /HPF (None Seen); Urine Urobilinogen Normal (Normal); Urine WBC None Seen /HPF (<5)
[2023-12-14 11:40] VITALS: BP 123/55; TEMP 97.2; O2SAT 100
--- NOTE | 2023-12-15 15:11 | EKG ---
Test Date: 2023-12-14 Test Time: 09:06:47 Employee Benefits Specialist: GRETCHEN MEASUREMENT RESULTS: Intervals: Rate: 69 NH: 174 QRSD: 96 QT: 432 QTc: 462 [place]: P: 61 NH: 174 QRS: 45 T: 34 INTERPRETIVE STATEMENTS: Normal sinus rhythm Normal ECG Compared to ECG 12/02/2021 02:31:22 ST (T wave) deviation no longer present Electronically Signed On 12-15-23 15:06:38 CDT by Michael Lomeli
== END 2023-12-14 11:24 | disposition home or self-care (01) ==
LOC: ER 08:30
DX: M54.9 Dorsalgia, unspecified (principal); R11.0 Nausea; R93.2 Abnormal findings on diagnostic imaging of liver and biliary tract
CPT/HCPCS: 96361; 93005; 85025; 81001; 80048; 36415; 83735; 85610; 80076; 84484; 83690; 74177; 71045; 96375; 96374; 99285; Q9967; J2405; J7040